=== PATIENT | male | born 1955 | race African-American/Black ===

== ENCOUNTER → 2017-02-28 | Outpatient (CLI) | payer BC ==
[~2017-02-28] MED LIST: IOHEXOL 350 MG/ML 100 ML (OMNIPAQUE 350) VIAL IV ONE; NS 100 ML (IVPB) BAG IV ONE
--- NOTE | 2017-02-28 09:55 | Diagnostic Imaging Report ---
PROCEDURE: CT chest with contrast only. TECHNIQUE: Multiple contiguous axial images were obtained through the chest after administration of intravenous contrast. INDICATION: Hemoptysis. COMPARISON: No prior studies are available for comparison. FINDINGS: Left chest wall cardiac pacemaker is in place. No axillary lymphadenopathy is seen. There is no hilar lymphadenopathy. A lymph node in the right paratracheal location is seen with short axis measurement of approximately 10 mm. No pericardial or pleural fluid is identified. The central airways are widely patent. Minimal subpleural interstitial changes are identified in the anterior portions of bilateral upper lobes. No parenchymal mass is identified. No infiltrate is seen. No nodules are detected. The upper abdomen is unremarkable. IMPRESSION: Essentially unremarkable CT of the chest with contrast. Dictated by: Dictated on workstation # [id number]
== END ==
LOC: RAD 08:55
PROVIDERS: ATTEND Nurse Practitioner Family
DX: R04.2 Hemoptysis (principal)
CPT/HCPCS: 71260

== ENCOUNTER 2018-12-16 20:06 | Inpatient (IN) | payer BC ==
[~2018-12-16] VITALS: Ht 177.8 cm; Wt 94.0 kg
[2018-12-16 20:44] LABS: BASOPHILS % (AUTO) 0 % (0-10); EOSINOPHILS % (AUTO) 1 % (0-10); HEMATOCRIT 49 % (40-54); HEMOGLOBIN 16.2 G/DL (13.3-17.7); LYMPHOCYTES # (AUTO) 0.9 X 10^3 (1.0-4.0); LYMPHOCYTES % (AUTO) 16 % (12-44); MEAN CORPUSCULAR HEMOGLOBIN 35 PG (25-34); MEAN CORPUSCULAR HGB CONC 33 G/DL (32-36); MEAN CORPUSCULAR VOLUME 103 FL (80-99); MEAN PLATELET VOLUME 10.1 FL (7.4-10.4); MONOCYTES # (AUTO) 0.8 X 10^3 (0.0-1.0); MONOCYTES % (AUTO) 14 % (0-12); NEUTROPHILS # (AUTO) 3.8 X 10^3 (1.8-7.8); NEUTROPHILS % (AUTO) 69 % (42-75); PLATELET COUNT 115 10^3/uL (130-400); RED CELL DISTRIBUTION WIDTH 13.5 % (10.0-14.5); WHITE BLOOD COUNT 5.5 10^3/uL (4.3-11.0)
--- NOTE | 2018-12-16 20:55 | ED Lower Extremity ---
General Chief Complaint: Skin/Wound Problems Stated Complaint: BILAT LEG SWELLING, CRACKED SKIN, LEAKING FLUID Source: patient, other Exam Limitations: no limitations History of Present Illness Date Seen by Provider: Dec 16, 2018 Time Seen by Provider: 20:30 Initial Comments Patient resents to ER by private conveyance with a friend and chief complaint that over the past couple days she's had increased swelling pain edema over his lower extremity's. He takes Lasix 80 mg daily and is under the care of Dr. Mcgee for heart failure with an AICD in place. He doesn't feel that the Lasix has helped at all his now having some red/honey colored crusts off bilateral knees, red hot tender skin and difficulty walking. He has a lot of breakdown in his skin from scratch patino all over his head face trunk and upper extremities. The small lesions usually approximately 1/2-1 cm in diameter started appearing September, 3 months ago after cutting a tree down. At first they thought maybe he had a skin infection and so he was put on triamcinolone topically and Keflex by his primary care doctor, Dr. Michaels out of [place], [place]. This did not help so he went to the client experience specialist to get a punch biopsy. He says he feels sometimes he has been quite wriggling under the skin and he'll scratch at it and that's what precipitates these lesions. He says he's even pulled these mites or bugs out of his skin and taking them to the doctor but they told him that there was no foreign organism there. He says he was also treated with permethrin twice. Today he presented to the ER doctor, Dr. Hurtado and was told that he needed to fo llow up outpatient for these lesions that they would not be able to find a reason for it. He says no blood work was done at this time. He's not having any chest pain shortness of breath or orthopnea. He denies a history of HIV, liver failure or hepatitis. He says the pain on movement can be as bad as an 8 or 9 out of 10 but he doesn't want anything for pain right now. He has pain over all the joints in his body's but especially his knees right now. Allergies and Home Medications Allergies Coded Allergies: No Allergy Information Available (Unverified , 02/28/17) Patient Home Medication List Home Medication List Reviewed: Yes Review of Systems Constitutional: No chills, No fever; malaise, weakness EENTM: No ear pain, No eye pain Respiratory: No cough, No phlegm, No short of breath Cardiovascular: No chest pain; edema, Hx of Intervention; No palpitations, No syncope Gastrointestinal: No abdominal pain, No constipation, No diarrhea Genitourinary: No discharge, No dysuria Musculoskeletal: No back pain, No joint pain Skin: No pruritus, No rash All Other Systems Reviewed Negative Unless Noted: Yes Past Csxtimj-Akesyg-Lbhblm Hx Patient Social History Alcohol Use: Denies Use Recreational Drug Use: No Smoking Status: Former Smoker Recent Foreign Travel: No Contact w/Someone Who Travel: No Physical Exam Vital Signs Vital Signs - First Documented 12/16/18 20:23 Temp 37.1 Pulse 65 Resp 18 B/P (MAP) 113/91 (98) Pulse Ox 95 O2 Delivery Room Air Capillary Refill : Height, Weight, BMI Height: '" Weight: lbs. oz. kg; BMI Method: General Appearance: WD/WN, mild distress HEENT: PERRL/EOMI, pharynx normal (mucosa is dry) Cardiovascular: normal peripheral pulses, regular rate, rhythm, no JVD Respiratory: lungs clear, normal breath sounds, no respiratory distress, no accessory muscle use Gastrointestinal: non tender, soft Hips: bilateral hip non-tender, bilateral hip normal inspection, bilateral hip normal range of motion Legs: bilateral leg pain, bilateral leg soft tissue tenderness, bilateral leg swelling (hot, red especially around the Bilaterally with some mild breakdown in the skin and some honey-colored serous crusting.) Feet: bilateral foot non-tender, bilateral foot swelling (2+ pitting edema up to the calves) Neurologic/Psychiatric: alert, normal mood/affect, oriented x 3 Skin: other (warm, tender, red, breakdown bilateral lower extremities around the knees and inferiorly) Progress/Results/Core Measures Results/Orders Lab Results Laboratory Tests Test 12/16/18 20:38 12/16/18 21:55 Range/Units White Blood Count 5.5 4.3-11.0 10^3/uL Red Blood Count 4.69 4.35-5.85 10^6/uL Hemoglobin 16.2 13.3-17.7 G/DL Hematocrit 49 40-54 % Mean Corpuscular Volume 103 H 80-99 FL Mean Corpuscular Hemoglobin 35 H 25-34 PG Mean Corpuscular Hemoglobin Concent 33 32-36 G/DL Red Cell Distribution Width 13.5 10.0-14.5 % Platelet Count 115 L 130-400 10^3/uL Mean Platelet Volume 10.1 7.4-10.4 FL Neutrophils (%) (Auto) 69 42-75 % Lymphocytes (%) (Auto) 16 12-44 % Monocytes (%) (Auto) 14 H 0-12 % Eosinophils (%) (Auto) 1 0-10 % Basophils (%) (Auto) 0 0-10 % Neutrophils # (Auto) 3.8 1.8-7.8 X 10^3 Lymphocytes # (Auto) 0.9 L 1.0-4.0 X 10^3 Monocytes # (Auto) 0.8 0.0-1.0 X 10^3 Eosinophils # (Auto) 0.0 0.0-0.3 10^3/uL Basophils # (Auto) 0.0 0.0-0.1 10^3/uL Erythrocyte Sedimentation Rate 10 0-30 MM/HR Prothrombin Time 14.3 12.2-14.7 SEC INR Comment 1.1 0.8-1.4 Activated Partial Thromboplast Time 29 24-35 SEC Sodium Level 139 135-145 MMOL/L Potassium Level 3.8 3.6-5.0 MMOL/L Chloride Level 99 98-107 MMOL/L Carbon Dioxide Level 25 21-32 MMOL/L Anion Gap 15 H 5-14 MMOL/L Blood Urea Nitrogen 18 7-18 MG/DL Creatinine 1.50 H 0.60-1.30 MG/DL Estimat Glomerular Filtration Rate 58 BUN/Creatinine Ratio 12 Glucose Level 119 H 70-105 MG/DL Calcium Level 9.1 8.5-10.1 MG/DL Corrected Calcium 9.3 8.5-10.1 MG/DL Magnesium Level 1.6 1.6-2.4 MG/DL Total Bilirubin 0.5 0.1-1.0 MG/DL Aspartate Amino Transf (AST/SGOT) 32 5-34 U/L Alanine Aminotransferase (ALT/SGPT) 22 0-55 U/L Alkaline Phosphatase 66 40-136 U/L Myoglobin 87.2 10.0-92.0 NG/ML Troponin I 0.071 H <0.028 NG/ML C-Reactive Protein High Sensitivity 3.31 H 0.00-0.50 MG/DL B-Type Natriuretic Peptide 954.3 H <100.0 PG/ML Total Protein 7.6 6.4-8.2 GM/DL Albumin 3.7 3.2-4.5 GM/DL Urine Color YELLOW Urine Clarity CLEAR Urine pH 6.0 5-9 Urine Specific [place] 1.025 H 1.016-1.022 Urine Protein 1+ H NEGATIVE Urine Glucose (UA) NEGATIVE NEGATIVE Urine Ketones NEGATIVE NEGATIVE Urine Nitrite NEGATIVE NEGATIVE Urine Bilirubin NEGATIVE NEGATIVE Urine Urobilinogen 2.0 < = 1.0 MG/DL Urine Leukocyte Esterase NEGATIVE NEGATIVE Urine RBC (Auto) NEGATIVE NEGATIVE Urine RBC NONE /HPF Urine WBC 0-2 /HPF Urine Crystals NONE /LPF Urine Bacteria NEGATIVE /HPF Urine Casts NONE /LPF Urine Mucus NEGATIVE /LPF Urine Culture Indicated NO My Orders Orders - CELSA OSEI Syphilis Antibody Screen (12/16/18 20:42) Hs C Reactive Protein (12/16/18 20:42) Erythrocyte Sedimentation Rate (12/16/18 20:42) Continuous Ekg Monitoring (12/16/18 20:42) Ekg Tracing (12/16/18 20:42) Ekg Tracing (12/16/18 21:48) Ed Iv/Invasive Line Start (12/16/18 22:00) Ns Iv 500 Ml (Sodium Chloride 0.9%) (12/16/18 22:00) Ua Culture If Indicated (12/16/18 22:05) Blood Culture (12/16/18 22:05) Ceftriaxone For Iv Use (Rocephin For I (12/16/18 22:15) Medications Given in ED Current Medications Medications Dose Ordered Sig/Ivan Route Start Time Stop Time Status Last Admin Dose Admin Sodium Chloride 500 ml @ 0 mls/hr Q0M ONCE IV 12/16/18 22:00 12/16/18 22:02 DC 12/16/18 22:23 500 MLS/HR Vital Signs/I&O 12/16/18 20:23 Temp 37.1 Pulse 65 Resp 18 B/P (MAP) 113/91 (98) Pulse Ox 95 O2 Delivery Room Air Progress Progress Note #1: Time: 20:55 Progress Note These excoriated-looking lesions could be from scleroderma, extra pulmonary sarcoidosis, syphilis, neurotic excoriation, delusional infestation, etc. this seems less likely that they are from arthropod since he has been treated with permethrin and neither of his family members who live with him have similar lesions. He does admit to having OCD type tendencies and preoccupied see with his lesions and itching at them to dig out the infestation. At the same time he acknowledges that he likely does not have an actual organism under his skin since no one else is suffering from this and none of the anti-parasite medicines helped. He is not demonstrating any evidence of pruritus or uncontrollable itching at this time. The crystals are crusts that he noticed on his legs and on examination are more likely related to infection than uremic campbell and lab will help differentiate this. Blood cultures will be obtained. Progress Note #2: Time: 21:51 Progress Note Elevated troponin does not rise to the level of a type II heart attacks yet but needs to be trended. He appears to be clinically dry so we are going to start off with a trial some fluids. I don't know what his baseline BNP is. Don't know if he's having an acute kidney injury but were going to treat him like he is Initial ECG Impression Date: Dec 16, 2018 Initial ECG Impression Time: 20:54 Initial ECG Rate: 89 Initial ECG Rhythm: Normal Sinus Initial ECG Intervals: Normal Initial ECG Impression: Normal, Nonspecific Changes Initial ECG Comparisson: No Previous ECG Available Comment There is about a half block to 1 block elevation in the ST segment in leads V1, V2 and V3. There is no reciprocal ST depression. Plan to repeat EKG after a little bit. Diagnostic Imaging Diagonstic Imaging: Xray Plain Films/CT/US/NM/MRI: chest (1v) Comments Generous cardiac silhouette. No mediastinal widening. Nonspecific pulmonary parenchyma. No evidence of interstitial disease. AICD appears to be in good position. No acute osseous abdomen mildly. NAME: LIUDMILA LUNDBERG [facility] REC#: [id number] PT STATUS: REG ER : 1955 PHYSICIAN: BIANKA DARDEN APRN ADMIT DATE: 12/16/18/ER Draft POSDate of Exam:12/16/18 CHEST 1 VIEW, AP/PA ONLY Patient History: Chest pain. CHF. Technique: Single frontal view of the chest. Comparison: CT chest on 03/06/2017. FINDINGS: A left pectoral dual-chamber ICD is in place. The lung volumes are normal. No focal consolidation is seen. No large pleural effusion or pneumothorax is seen. The cardiomediastinal silhouette is enlarged. No acute osseous abnormality is seen. IMPRESSION: Cardiomegaly. No overt pulmonary edema. Dictated on workstation # [id number] Dict: 12/16/182101 Trans: 12/16/182103 [facility] [id number] Interpreted by: LAURA SHAW DO Electronically signed by: Reviewed: Reviewed by Me Departure Communication (Admissions) Time/Spoke to Admitting Phy: 22:00 Discussed the case with Dr. Christopher and she agrees to observe the patient repeat labs troponin in the morning and Rocephin for antibiotics. Time/Spoke to Consulting Phy: 21:55 Discussed the patient's case lab imaging EKGs with Dr. Wayne and he feels that the EKG changes are probably exhibit display representative of an old infarct. He agrees with trending troponin and treating a cellulitis with fluids and antibiotics and he will consult on the patient. Impression Primary Impression: Cellulitis Qualified Codes: L03.119 - Cellulitis of unspecified part of limb Additional Impressions: History of CHF (congestive heart failure) Acute kidney injury (nontraumatic) Elevated troponin Dehydration Disposition: ADMITTED INPATIENT Condition: Stable Admissions Decision to Admit Reason: Admit from ER (General) Decision to Admit/Date: Dec 16, 2018 Time/Decision to Admit Time: 21:41 Departure-Patient Inst. Referrals: NO,LOCAL PHYSICIAN (PCP/Family) Primary Care Physician CELSA OSEI Dec 16, 2018 20:55 POS
[2018-12-16 21:01] LABS: INR 1.1 (0.8-1.4); PROTHROMBIN TIME PATIENT 14.3 SEC (12.2-14.7)
--- NOTE | 2018-12-16 21:04 | Diagnostic Imaging Report ---
Patient History: Chest pain. CHF. Technique: Single frontal view of the chest. Comparison: CT chest on 03/06/2017. FINDINGS: A left pectoral dual-chamber ICD is in place. The lung volumes are normal. No focal consolidation is seen. No large pleural effusion or pneumothorax is seen. The cardiomediastinal silhouette is enlarged. No acute osseous abnormality is seen. IMPRESSION: Cardiomegaly. No overt pulmonary edema. Dictated by: Dictated on workstation # [id number]
[2018-12-16 21:06] LABS: ALBUMIN 3.7 GM/DL (3.2-4.5); BILIRUBIN,TOTAL 0.5 MG/DL (0.1-1.0); CALCIUM 9.1 MG/DL (8.5-10.1); CREATININE SERUM 1.5 MG/DL (0.60-1.30); MAGNESIUM 1.6 MG/DL (1.6-2.4); POTASSIUM 3.8 MMOL/L (3.6-5.0); TOTAL PROTEIN 7.6 GM/DL (6.4-8.2)
[2018-12-16] MEDS ORDERED: NS IV 500 ML 500 ML IV ONE (22:00)
[2018-12-16 22:14] LABS: BILIRUBIN,URINE NEGATIVE (NEGATIVE); CLARITY,URINE CLEAR; COLOR,URINE YELLOW; GLUCOSE, URINE (UA) NEGATIVE (NEGATIVE); KETONES,URINE NEGATIVE (NEGATIVE); LEUKOCYTE ESTERASE ,URINE NEGATIVE (NEGATIVE); NITRITE,URINE NEGATIVE (NEGATIVE); PROTEIN,URINE 1+ (NEGATIVE)
[2018-12-16] MEDS ORDERED: cefTRIAXone FOR IV USE 1,000 MG in WATER (STERILE) FOR INJECTION 10 ML IV ONE (22:15)
[2018-12-16 22:25] LABS: BACTERIA,URINE NEGATIVE /HPF; WBC,URINE 0-2 /HPF
--- NOTE | 2018-12-16 22:59 | NUR ---
LIUDMILA LUNDBERG admitted to room 429-1, with an admitting diagnosis of CELLULITIS, DEHYDRATION, ELEVATED TROPONIN, WAYNE POSSIBLY, HX:CHF , on 12/16/18 from ED via CART, accompanied by STAFF AND FAMILY. LIUMDILA LUNDBERG introduced to surroundings, call light, bed controls, phone, TV, temperature control, lights, meal times, smoking policy, visitor policy, side rail policy, bathrooms and showers. Patient Rights given to patient in the handbook.LIUDMILA LUNDBERG verbalizes understanding that [facility] is not responsible for the loss or damage to any personal effects or valuables that are kept in the patients posession during their hospitalization.
[2018-12-16 23:00] VITALS: BP 121/80
[2018-12-16] MEDS ORDERED: ONDANSETRON 4 MG/2 ML (SDV) Z0FRAN IV PRN (23:30)
[2018-12-16] MEDS ORDERED: ACETAMINOPHEN 500 MG TAB (TYLENOL) PO PRN (23:30)
[2018-12-16] MEDS: LACTATED RINGERS 1,000 ML IV SCH (23:56)
[2018-12-17] VITALS (7 sets, daily range): BP systolic 100–121; BP diastolic 50–86
[2018-12-17] MEDS ORDERED: FURO40TA4 PO (00:03)
[2018-12-17] MEDS ORDERED: SPIR25TA PO (00:03)
[2018-12-17] MEDS ORDERED: SACU1TAB PO (00:03)
[2018-12-17] MEDS ORDERED: CEPH500T PO (00:03)
[2018-12-17] MEDS ORDERED: PANT40TA3 PO (00:03)
[2018-12-17] MEDS ORDERED: POTA99TA21 PO (00:03)
[2018-12-17] MEDS ORDERED: CALC-140 PO (00:18)
[2018-12-17] MEDS ORDERED: ASPI-586 PO (00:18)
[2018-12-17] MEDS: HYDROcodone/APAP 5 MG/325 MG (LORTAB) TAB PO PRN (01:09)
[2018-12-17 02:56] LABS: BASOPHILS % (AUTO) 0 % (0-10); EOSINOPHILS # (AUTO) 0.1 10^3/uL (0.0-0.3); EOSINOPHILS % (AUTO) 1 % (0-10); HEMATOCRIT 45 % (40-54); HEMOGLOBIN 14.9 G/DL (13.3-17.7); LYMPHOCYTES # (AUTO) 1.4 X 10^3 (1.0-4.0); LYMPHOCYTES % (AUTO) 26 % (12-44); MEAN CORPUSCULAR HEMOGLOBIN 34 PG (25-34); MEAN CORPUSCULAR HGB CONC 33 G/DL (32-36); MEAN CORPUSCULAR VOLUME 103 FL (80-99); MEAN PLATELET VOLUME 10.6 FL (7.4-10.4); MONOCYTES # (AUTO) 0.6 X 10^3 (0.0-1.0); MONOCYTES % (AUTO) 12 % (0-12); NEUTROPHILS # (AUTO) 3.1 X 10^3 (1.8-7.8); NEUTROPHILS % (AUTO) 60 % (42-75); PLATELET COUNT 102 10^3/uL (130-400); RED CELL DISTRIBUTION WIDTH 13.3 % (10.0-14.5); WHITE BLOOD COUNT 5.2 10^3/uL (4.3-11.0)
[2018-12-17 03:21] LABS: ALANINE AMINOTRANSFERASE 20 U/L (0-55); ALBUMIN 3.3 GM/DL (3.2-4.5); ALKALINE PHOSPHATASE 59 U/L (40-136); BILIRUBIN,TOTAL 0.5 MG/DL (0.1-1.0); BUN/CREATININE RATIO 14; CALCIUM 8.4 MG/DL (8.5-10.1); CARBON DIOXIDE 21 MMOL/L (21-32); CHLORIDE 101 MMOL/L (98-107); CHOLESTEROL 164 MG/DL (< 200); CREATININE SERUM 1.34 MG/DL (0.60-1.30); GFR ESTIMATED > 60; GLUCOSE 128 MG/DL (70-105); HDL CHOLESTEROL 50 MG/DL (40-60); POTASSIUM 4.1 MMOL/L (3.6-5.0); SODIUM 136 MMOL/L (135-145); TRIGLYCERIDES 122 MG/DL (<150); VLDL CHOLESTEROL 24 MG/DL (5-40)
--- NOTE | 2018-12-17 08:39 | Diagnostic Imaging Report ---
INDICATION: Elevated troponin. TECHNIQUE: Single view chest 8:32 AM. CORRELATION STUDY: 12/16/2018 FINDINGS: Single chamber left-sided ICD is in place. Heart size enlarged but stable. Vasculature overall unchanged. Lungs remain relatively clear. IMPRESSION: 1. Stable chest. Unchanged severity cardiac enlargement. Dictated by: Dictated on workstation # [id number]
[2018-12-17] MEDS: LACTATED RINGERS 1,000 ML IV SCH ×2 (08:56→20:53)
--- NOTE | 2018-12-17 12:20 | History & Physical-Hospitalist ---
History of Present Illness Source: patient Date Seen 12/17/18 Time Seen by a Provider: 12:13 Attending Physician Barbra Christopher MD PCP No,Local Physician Referring Physician Date of Admission Dec 16, 2018 at 22:08 Home Medications & Allergies Home Medications Reviewed patient Home Medication Reconciliation performed by pharmacy medication reconciliations isotope technician and/or nursing. Patients Allergies have been reviewed. Allergies Allergies Coded Allergies No Allergy Information Available (Unverified02/28/17) Past Jzbvbcw-Xelzwv-Wjvgld Hx Past Med/Social Hx: Reviewed Nursing Past Med/Soc Hx Patient Social History Employed/Student: employed Alcohol Use: Denies Use Recreational Drug Use: No Smoking Status: Former Smoker Former Smoker, Quit: Dec 08, 2009 2nd Hand Smoke Exposure: Yes Recent Foreign Travel: No Contact w/other who traveled: No Recent Hopitalizations: No Recent Infectious Disease Expo: No Past Medical History Cardiac: Cardiomyopathy, Chronic Edema/Swelling, Hypertension Skin/Integumentary: Recent Skin Changes History of Blood Disorders: No Adverse Reaction to Blood [place]: No Family History Reviewed Nursing Family Hx Patient reports no known family medical history. Review of Systems Constitutional: No chills, No fever, No weakness EENTM: no symptoms reported Respiratory: no symptoms reported Cardiovascular: see HPI, edema Gastrointestinal: no symptoms reported Genitourinary: no symptoms reported Musculoskeletal: no symptoms reported Skin: see HPI, dryness, lesions, pruritus, rash Psychiatric/Neurological: No Symptoms Reported Physical Exam Physical Exam Vital Signs Vital Signs - First Documented 12/16/18 20:23 Temp 37.1 Pulse 65 Resp 18 B/P (MAP) 113/91 (98) Pulse Ox 95 O2 Delivery Room Air Capillary Refill : Less Than 3 Seconds Height, Weight, BMI Height: '" Weight: lbs. oz. kg; 29.73 BMI Method: General Appearance: No Apparent Distress, WD/WN HEENT: Moist Mucous Membranes; No Scleral Icterus (L), No Scleral Icterus (R) Neck: Supple; No Thyromegaly Respiratory: Lungs Clear, No Respiratory Distress Cardiovascular: Regular Rate, Rhythm, No Murmur Gastrointestinal: Normal Bowel Sounds, Non Tender, Soft Extremity: No Calf Tenderness, Pedal Edema, Swelling Neurologic/Psychiatric: Alert, Oriented x3, Normal Mood/Affect Skin: Rash (diffuse numular lesions with excoriations evident on chest arms and face), Other (bilateral lower extremity with erythema and warmth, absent hair; absent eyebrows) Results Results/Procedures Labs Laboratory Tests 12/16/18 20:38 12/17/18 02:47 Patient resulted labs reviewed. Imaging: Reviewed Imaging Report Assessment/Plan Admission Diagnosis Cellulitis, WAYNE Admission Status: Inpatient Order (span 2 midnights) Reason for Inpatient Admission: failed outpatient management, WAYNE Assessment and Plan Cellulitis Continue on Rocephin, will add Vanc Cultures pending Consider wound vac consult for edema management CHF elevated troponin BNP elevated but has been doubling up on lasix at home and now has WAYNE Edema likely due to cellulitis Echo ordered, unsure of EF but likely very abnormal due to med history Cardiology consulted records requested Diffuse rash Has seen Dr Armstrong multiple times- will request records MADELINE, RF, Tick panel, and TSH ordered Benadryl for itching Has tried permethrin multiple times without improvement Diagnosis/Problems Diagnosis/Problems (1) Cellulitis Status: Acute Qualifiers: Site of cellulitis: extremity Site of cellulitis of extremity: lower extremity Laterality: unspecified laterality Qualified Codes: L03.119 - Cellulitis of unspecified part of limb (2) Elevated troponin Status: Acute (3) Acute kidney injury (nontraumatic) Status: Acute (4) History of CHF (congestive heart failure) Status: Acute Clinical Quality Measures DVT/VTE Risk/Contraindication: Risk Factor Score Per Nursin RFS Level Per Nursing on Admit: 4+=Very High BARBRA CHRISTOPHER MD Dec 17, 2018 12:20 POS
[2018-12-17] MEDS ORDERED: VANCOMYCIN INJECTION 2,000 MG in NS IV 500 ML 500 ML IV NR (12:35)
[2018-12-17] MEDS: ENOXAPARIN 40 MG/0.4 ML (LOVENOX) SYR SC SCH (14:45)
[2018-12-17] MEDS: diphenhydrAMINE 25 MG TAB (BENADRYL) PO PRN ×2 (16:39→23:45)
--- NOTE | 2018-12-17 17:13 | Consultation-Cardiology ---
HPI-Cardiology Cardiology Consultation: Date of Consultation 12/17/18 Time Seen by a Provider: 16:10 Date of Admission Attending Physician Gricelda Christopher MD Admitting Physician No,Local Physician Consulting Physician RONNI OBREGON MD, MA, FACP, FACC, FSCAI, CCDS Primary electrolysist: Dr Beck HPI: Chief Complaint: CC: Leg swelling, redness, and pain HPI 63 yo man with increasing leg swelling and redness and discomfort for several days to weeks. Admitted to Dr Christopher with the diagnosis of cellulitis. Known to have multiple CV issues (see below) for which he follows with Dr Beck in [place]. He notes chronic exertional shortness of breath. He denies cp. He denies palp or syncope or shocks from ICD. He notes gen malaise. Poor stamina. Has had a skin eruption for several months for which he is seeing his marine underwriter Dr Castrejon Review of Systems-Cardiology Review of Systems Constitutional: As described under HPI Eyes: No vision change Ears/Nose/Throat: No ear discharge, No nasal drainage, No recent hearing loss Respiratory: As described under HPI Cardiovascular: As described under HPI Gastrointestinal: No diarrhea, No nausea, No vomiting Genitourinary: No dysuria, No hematuria, No urine frequency changes Musculoskeletal: As describe under HPI; No back pain Skin: As described under HPI Psychiatric/Neurological: No seizure, No focal weakness, No syncope Hematologic: No bleeding abnormalities All Other Systems Reviewed Negative Unless Noted: Yes [id number] Hx Patient Social History Employed/Student: employed Alcohol Use: Denies Use Recreational Drug Use: No Smoking Status: Former Smoker 2nd Hand Smoke Exposure: Yes Recent Foreign Travel: No Recent Infectious Disease Expo: No Hospitalization with Isolation: Denies Past Medical History PMH As described under Assessment. Family Medical History Family History: Patient reports no known family medical history. Allergies and Home Medications Allergies Coded Allergies: No Allergy Information Available (Unverified , 02/28/17) Home Medications Aspirin 81 Mg Tablet.dr, 81 MG PO DAILY, (Reported) Calcium Carbonate/Vitamin D3 1 Each Tablet, 1 EACH PO DAILY, (Reported) Cephalexin 500 Mg Tablet, 500 MG PO BID, (Reported) Furosemide 40 Mg Tablet, 40 MG PO BID, (Reported) Pantoprazole Sodium 40 Mg Tablet.dr, 40 MG PO DAILY, (Reported) Potassium Gluconate 99 Mg Tablet, 99 MG PO DAILY, (Reported) Sacubitril/Valsartan 1 Each Tablet, 1 TAB PO BID, (Reported) Spironolactone 25 Mg Tablet, 25 MG PO DAILY, (Reported) Patient Home Medication List Home Medication List Reviewed: Yes Physical Exam-Cardiology Physical Exam Vital Signs/I&O 12/17/18 12/17/18 12/17/18 12/17/18 07:00 08:00 08:00 12:00 Temp 36.3 36.5 Pulse 98 91 97 Resp 18 16 B/P (MAP) 120/86 (97) 104/66 (79) Pulse Ox 93 99 O2 Delivery Room Air Room Air Room Air 12/17/18 12/17/18 13:00 16:00 Temp 36.8 Pulse 98 90 Resp 20 B/P (MAP) 108/64 (79) Pulse Ox 94 O2 Delivery Room Air 12/17/18 00:00 Intake Total 10 ml Balance 10 ml Capillary Refill : Less Than 3 Seconds Constitutional: AAO x 3, well-developed, well-nourished HEENT: EOMI, hearing is well preserved; No xanthelasmas are seen Neck: carotid pulses are 2 + bilaterally, with good upstrokes Respiratory: No accessory muscle use; other (Fair bilat air entry, basal coarse and fine crackles) Cardiovascular: regular rate-rhythm, S1 and S2, systolic murmur (soft TEODORA at card base) Gastrointestinal: No tender; soft; No guarding, No rebound; audible bowel sounds Extremities: No clubbing, No cyanosis; significant edema (4 + pitting edema of the legs with overlying redness and increased temperature) Neurologic/Psychiatric: oriented x 3, other (moves all limbs equally) Skin: other (papular skin eruption involving the face, nape of the neck, torso and upper limbs) Data Review Labs Laboratory Tests 12/16/18 20:38: White Blood Count 5.5, Red Blood Count 4.69, Hemoglobin 16.2, Hematocrit 49, Mean Corpuscular Volume 103H, Mean Corpuscular Hemoglobin 35H, Mean Corpuscular Hemoglobin Concent 33, Red Cell Distribution Width 13.5, Platelet Count 115L, Mean Platelet Volume 10.1, Neutrophils (%) (Auto) 69, Lymphocytes (%) (Auto) 16, Monocytes (%) (Auto) 14H, Eosinophils (%) (Auto) 1, Basophils (%) (Auto) 0, Neutrophils # (Auto) 3.8, Lymphocytes # (Auto) 0.9L, Monocytes # (Auto) 0.8, Eosinophils # (Auto) 0.0, Basophils # (Auto) 0.0, Erythrocyte Sedimentation Rate 10, Prothrombin Time 14.3, INR Comment 1.1, Activated Partial Thromboplast Time 29, Sodium Level 139, Potassium Level 3.8, Chloride Level 99, Carbon Dioxide Level 25, Anion Gap 15H, Blood Urea Nitrogen 18, Creatinine 1.50H, Estimat Glomerular Filtration Rate 58, BUN/Creatinine Ratio 12, Glucose Level 119H, Calcium Level 9.1, Corrected Calcium 9.3, Magnesium Level 1.6, Total Bilirubin 0.5, Aspartate Amino Transf (AST/SGOT) 32, Alanine Aminotransferase (ALT/SGPT) 22, Alkaline Phosphatase 66, Myoglobin 87.2, Troponin I 0.071H, C-Reactive Protein High Sensitivity 3.31H, B-Type Natriuretic Peptide 954.3H, Total Protein 7.6, Albumin 3.7 12/16/18 21:55: Urine Color YELLOW, Urine Clarity CLEAR, Urine pH 6.0, Urine Specific Leonore 1.025H, Urine Protein 1+H, Urine Glucose (UA) NEGATIVE, Urine Ketones NEGATIVE, Urine Nitrite NEGATIVE, Urine Bilirubin NEGATIVE, Urine Urobilinogen 2.0, Urine Leukocyte Esterase NEGATIVE, Urine RBC (Auto) NEGATIVE, Urine RBC NONE, Urine WBC 0-2, Urine Crystals NONE, Urine Bacteria NEGATIVE, Urine Casts NONE, Urine Mucus NEGATIVE, Urine Culture Indicated NO 12/17/18 02:47: White Blood Count 5.2, Red Blood Count 4.35, Hemoglobin 14.9, Hematocrit 45, Mean Corpuscular Volume 103H, Mean Corpuscular Hemoglobin 34, Mean Corpuscular Hemoglobin Concent 33, Red Cell Distribution Width 13.3, Platelet Count 102L, Mean Platelet Volume 10.6H, Neutrophils (%) (Auto) 60, Lymphocytes (%) (Auto) 26, Monocytes (%) (Auto) 12, Eosinophils (%) (Auto) 1, Basophils (%) (Auto) 0, Neutrophils # (Auto) 3.1, Lymphocytes # (Auto) 1.4, Monocytes # (Auto) 0.6, Eosinophils # (Auto) 0.1, Basophils # (Auto) 0.0, Sodium Level 136, Potassium Level 4.1, Chloride Level 101, Carbon Dioxide Level 21, Anion Gap 14, Blood Urea Nitrogen 19H, Creatinine 1.34H, Estimat Glomerular Filtration Rate > 60, BUN/Creatinine Ratio 14, Glucose Level 128H, Calcium Level 8.4L, Corrected Calcium 9.0, Total Bilirubin 0.5, Aspartate Amino Transf (AST/SGOT) 29, Alanine Aminotransferase (ALT/SGPT) 20, Alkaline Phosphatase 59, Troponin I 0.061H, Total Protein 7.0, Albumin 3.3, Triglycerides Level 122, Cholesterol Level 164, LDL Cholesterol Direct 136H, VLDL Cholesterol 24, HDL Cholesterol 50, Thyroid Stimulating Hormone (TSH) 2.94 12/17/18 08:33: Troponin I 0.057H Laboratory Tests 12/16/18 20:38 12/17/18 02:47 A/P-Cardiology Assessment/Admission Diagnosis Bilat leg cellulitis, being managed by the Primary Care Service Dilated ischemic cardiomyopathy with ac on chronic systolic CHF CAD. Pt reports h/o cor stents by Dr Beck a few years ago (no details known to the patient) S/p ICD. Pt report dual chamber ICD placement that is followed by Dr Beck Mild troponin elevation: type 2 [place] due to CHF Echo of 12/17/18: LVEF 10-15%, mod enlargement of LV, severe enlargement of LA, impaired RV systolic function, severe MR & TR, pulm htn with RVSP 51 mmHg Papular eruption on skin of head and neck and torso and upper limbs of undetermined etiology Discussion and Recomendations * Complex management due to multiple comorbidities (see above) * Treat with carvedilol, Entresto, furosemide, spironolactone for CHF * Continue ASA because of h/o CAD * Advised f/u on cardiomyopathy and severe MR with his electrolysist Dr Beck * Monitor labs closely Clinical Quality Measures DVT/VTE Risk/Contraindication: Risk Factor Score Per Nursin RFS Level Per Nursing on Admit: 4+=Very High RONNI OBREGON MD [facility] Dec 17, 2018 17:13 POS
[2018-12-17] MEDS ORDERED: ASPIRIN 81 MG CHEW (CHILDREN'S ASA) PO ONE (17:30)
[2018-12-17] MEDS ORDERED: SPIRONOLACTONE 25 MG (ALDACTONE) TAB PO ONE (17:30)
[2018-12-17] MEDS ORDERED: FUROSEMIDE 40 MG/4 ML INJ (LASIX) IVP ONE (17:30)
[2018-12-17] MEDS ORDERED: FUROSEMIDE 40 MG/4 ML INJ (LASIX) ONE (19:31)
--- NOTE | 2018-12-17 19:50 | NUR ---
NEW ORDER FOR HOME MEDICATIONS RECEIVED, THIS RN ATTEMPTED TO GIVE MEDICATIONS TO PATIENT. PATIENT STATED THAT HE ALREADY TOOK HIS HOME MEDS AND VERIFIED DOSAGES. PATIENT STATED "I DID NOT TAKE THE LASIX BECAUSE THE HEART DOCTOR SAID I WOULD GET THAT ONE THROUGH MY IV." THIS RN EXPLAINED THAT WE ARE ABLE TO GIVEN HOME MEDICATIONS WITH AN ORDER, BUT THEY HAVE TO BE VERIFIED THROUGH PHARMACY, THIS PROCESS WAS EXPLAINED AND AGREED. MEDICATIONS WERE UNABLE TO BE FOUND AT THIS TIME AND HE STATED THAT HIS SIGNIFICANT OTHER MAY HAVE TAKEN THEM WITH HER. REPORTED TO NIGHT RN THAT HOME MEDICATIONS WERE TAKEN, MEDICATIONS WERE NON-ADMINISTERED ON EMAR. PATIENT NOW STATES UNDERSTANDING NOT TO TAKE HOME MEDICATIONS WITHOUT NURSING APPROVAL.
[2018-12-17] MEDS: cefTRIAXone 1,000 MG/SWFI 10 ML IV PUSH IV SCH ×2 (20:04)
[2018-12-17] MEDS: CARVEDILOL 3.125 MG (COREG) TABLET PO SCH (20:06)
[2018-12-17] MEDS: SACUBITRIL/VALSARTAN 24/26 MG (ENTRESTO) TABLET PO SCH (20:07)
[2018-12-18] MEDS: LACTATED RINGERS 1,000 ML IV SCH ×2 (00:36→21:14)
[2018-12-18] MEDS: VANCOMYCIN 1500 MG/NS 500 ML IVPB IV SCH ×4 (00:38→13:14)
[2018-12-18] MEDS: HYDROcodone/APAP 5 MG/325 MG (LORTAB) TAB PO PRN ×2 (02:36→21:21)
[2018-12-18 04:00] VITALS: BP 99/65
[2018-12-18 05:50] LABS: BASOPHILS % (AUTO) 0 % (0-10); EOSINOPHILS # (AUTO) 0.1 10^3/uL (0.0-0.3); EOSINOPHILS % (AUTO) 1 % (0-10); HEMATOCRIT 45 % (40-54); HEMOGLOBIN 14.7 G/DL (13.3-17.7); LYMPHOCYTES # (AUTO) 0.9 X 10^3 (1.0-4.0); LYMPHOCYTES % (AUTO) 18 % (12-44); MEAN CORPUSCULAR HEMOGLOBIN 34 PG (25-34); MEAN CORPUSCULAR HGB CONC 33 G/DL (32-36); MEAN CORPUSCULAR VOLUME 104 FL (80-99); MONOCYTES # (AUTO) 0.7 X 10^3 (0.0-1.0); MONOCYTES % (AUTO) 14 % (0-12); NEUTROPHILS # (AUTO) 3.5 X 10^3 (1.8-7.8); NEUTROPHILS % (AUTO) 67 % (42-75); PLATELET COUNT 112 10^3/uL (130-400); RED CELL DISTRIBUTION WIDTH 13.7 % (10.0-14.5); WHITE BLOOD COUNT 5.3 10^3/uL (4.3-11.0)
[2018-12-18 06:11] LABS: BUN/CREATININE RATIO 17; CALCIUM 8.6 MG/DL (8.5-10.1); CARBON DIOXIDE 23 MMOL/L (21-32); CHLORIDE 104 MMOL/L (98-107); CREATININE SERUM 1.26 MG/DL (0.60-1.30); GFR ESTIMATED > 60; GLUCOSE 117 MG/DL (70-105); MAGNESIUM 1.5 MG/DL (1.6-2.4); POTASSIUM 3.7 MMOL/L (3.6-5.0); SODIUM 139 MMOL/L (135-145)
[2018-12-18] MEDS: FUROSEMIDE 40 MG/4 ML INJ (LASIX) IVP SCH ×2 (06:28→14:52)
[2018-12-18 08:00] VITALS: BP 112/83
[2018-12-18] MEDS ORDERED: CEPH500C PO (08:16)
[2018-12-18] MEDS ORDERED: ASCO100099 PO (08:24)
[2018-12-18] MEDS ORDERED: TURM538C PO (08:24)
[2018-12-18] MEDS ORDERED: MV,M1TAB2 PO (08:24)
[2018-12-18] MEDS ORDERED: TR1C15 TD (08:24)
--- NOTE | 2018-12-18 08:34 | NUR ---
SPOKE WITH PT, WENT THRU THE EXT MED HIS, CALLED [facility] AND [facility] TO COMPLETE THE MED REC. PT WAS ABLE TO TELL ME HOW/WHEN HE TAKES HIS MEDICATIONS. 09-16-2018 PANTOPRAZOLE #30/30 DS (THIS IS ON THE EXT MED HIS BUT I ALSO CALLED BOTH HIS PHARMACIES TO CHECK AND SEE IF THERE WAS A FILL SINCE THIS DATE- THERE HAD NOT BEEN) 09-23-2018 SPIROLACTONE #30/30DS (THIS IS ON THE EXT MED HIS BUT I ALSO CALLED BOTH HIS PHARMACIES TO CHECK AND SEE IF THERE WAS A FILL SINCE THIS DATE- THERE HAD NOT BEEN) PERMETHRIN WAS LISTED ON THE EXT MED HISTORY, PT SAID HE IS DONE WITH THIS PRESCRIPTION. OTC MEDS: TURMERIC VIT C W/ CON HIPS MTV ASPIRIN POTASSIUM CALCIUM W/ VIT D
[2018-12-18] MEDS: CARVEDILOL 3.125 MG (COREG) TABLET PO SCH ×2 (08:40→21:15)
[2018-12-18] MEDS: MAGNESIUM 1 GM/100 ML IVPB 100 ML IV SCH ×3 (08:41→12:08)
[2018-12-18] MEDS: ASPIRIN 81 MG CHEW (CHILDREN'S ASA) PO SCH (08:41)
[2018-12-18] MEDS: SACUBITRIL/VALSARTAN 24/26 MG (ENTRESTO) TABLET PO SCH ×2 (08:41→21:16)
[2018-12-18] MEDS ORDERED: SPIRONOLACTONE 25 MG (ALDACTONE) TAB PO SCH (09:00)
[2018-12-18] MEDS ORDERED: PATIENT MAY USE OWN MEDS, ALL MC SCH (09:15)
--- NOTE | 2018-12-18 09:59 | Progress Note - Cardiology ---
Cardiology SOAP Progress Note Subjective: Sitting up in bed. Denies any c/o CP, dyspnea, palpitations. Objective: I&O/Vital Signs 12/18/18 12/18/18 12/18/18 12/18/18 07:00 08:00 08:00 12:00 Temp 36.4 36.2 Pulse 93 60 68 Resp 20 20 B/P (MAP) 112/83 (93) 95/61 (72) Pulse Ox 96 96 98 O2 Delivery Room Air Room Air Room Air 12/18/18 12/18/18 13:00 15:55 Temp 36.2 Pulse 84 89 Resp 16 B/P (MAP) 108/86 (93) Pulse Ox 97 O2 Delivery Room Air 12/18/18 00:00 Intake Total 1960 ml Output Total 950 ml Balance 1010 ml Constitutional: AAO x 3, well-developed, well-nourished Respiratory: No accessory muscle use; other (Fair bilat air entry, basal coarse and fine crackles) Cardiovascular: regular rate-rhythm, S1 and S2, systolic murmur (soft TEODORA at card base) Gastrointestional: No tender; soft; No guarding, No rebound; audible bowel sounds Extremities: No clubbing, No cyanosis; significant edema (4 + pitting edema of the legs with overlying redness and increased temperature) Neurologic/Psychiatric: oriented x 3, other (moves all limbs equally) Skin: other (papular skin eruption involving the face, nape of the neck, torso and upper limbs) Results/Procedures: Labs Laboratory Tests 12/18/18 05:20: White Blood Count 5.3, Red Blood Count 4.33L, Hemoglobin 14.7, Hematocrit 45, Mean Corpuscular Volume 104H, Mean Corpuscular Hemoglobin 34, Mean Corpuscular Hemoglobin Concent 33, Red Cell Distribution Width 13.7, Platelet Count 112L, Mean Platelet Volume 11.0H, Neutrophils (%) (Auto) 67, Lymphocytes (%) (Auto) 18, Monocytes (%) (Auto) 14H, Eosinophils (%) (Auto) 1, Basophils (%) (Auto) 0, Neutrophils # (Auto) 3.5, Lymphocytes # (Auto) 0.9L, Monocytes # (Auto) 0.7, Eosinophils # (Auto) 0.1, Basophils # (Auto) 0.0, Sodium Level 139, Potassium Level 3.7, Chloride Level 104, Carbon Dioxide Level 23, Anion Gap 12, Blood Urea Nitrogen 21H, Creatinine 1.26, Estimat Glomerular Filtration Rate > 60, BUN/Creatinine Ratio 17, Glucose Level 117H, Calcium Level 8.6, Magnesium Level 1.5L Microbiology 12/16/18 Blood Culture - Preliminary, Resulted No growth A/P: Assessment: Bilat leg cellulitis, being managed by the Primary Care Service Dilated ischemic cardiomyopathy with ac on chronic systolic CHF. CHF improving clinically CAD. Pt reports h/o cor stents by Dr Beck a few years ago (no details known to the patient) S/p ICD. Pt report dual chamber ICD placement that is followed by Dr Beck Mild troponin elevation: type 2 [place] due to CHF Echo of 12/17/18: LVEF 10-15%, mod enlargement of LV, severe enlargement of LA, impaired RV systolic function, severe MR & TR, pulm htn with RVSP 51 mmHg Papular eruption on skin of head and neck and torso and upper limbs of undetermined etiology, managed by the Primary Care team Plan: * Complex management due to multiple comorbidities (see above) * Continue to treat with carvedilol, Entresto, furosemide, spironolactone for CHF * Continue ASA because of h/o CAD * Advised f/u on cardiomyopathy and severe MR with his production material coordinator Dr Beck * Monitor labs closely * Replace Mag Physician Assessment Physician Assessment Shortness of breath somewhat better No cp or palp or syncope Leg swelling persistent Lungs: basal rales Cor: reg with 3/6 HSM Ext: 3-4+ bilat leg edema A&R * As documented in our note above that I updated (italics) and as noted below * Replenish Mg * Monitor labs * I educated him in the management of heart failure and in the rationale of his CHF regimen * I answered his CV-related questions TOÑA ENRIQUEZ Dec 18, 2018 09:59 RONNI SALAS MD [facility], 2018 17:48 POS
[2018-12-18 12:00] VITALS: BP 95/61
--- NOTE | 2018-12-18 12:00 | Progress Note - Hospitalist ---
[facility] 12/18/18 1200: Subjective HPI/CC On Admission Date Seen by Provider: Dec 18, 2018 Time Seen by Provider: 11:07 Subjective/Events-last exam Pt appears to be doing well currently and states that his edema in the legs has gotten better since being in the hospital He does report still having some pain in both legs, but the redness is better He states that he has been still having the rash that he has seen mites or spores coming out of that is causing it to spread He states that he has had a biopsy and tried two different creams to help He states he saw a derrick worker well service in [place] who did the biopsy He states that he has had some OCD where he likes everything on his body to be smooth He has some old scars on his upper back from spots that he has picked at previously Review of Systems General: Chills; No Night Sweats, No Fatigue HEENT: Head Aches; No Visual Changes, No Ear Pain, No Sinus Congestion, No Post Nasal Drip Pulmonary: No Dyspnea, No Cough Cardiovascular: Edema; No: Chest Pain, Palpitations Gastrointestinal: No: Nausea, Vomiting, Abdominal Pain, Diarrhea, Constipation Genitourinary: No Dysuria; Other (Trouble starting and stopping stream) Musculoskeletal: leg pain, foot pain; No: neck pain Neurological: No: Weakness, Numbness, Confusion Objective Exam Vital Signs Vital Signs Date Time Temp Pulse Resp B/P (MAP) Pulse Ox O2 Delivery O2 Flow Rate FiO2 12/18/18 08:00 36.4 60 20 112/83 (93) 96 Room Air Capillary Refill : Less Than 3 Seconds General Appearance: No Apparent Distress, WD/WN HEENT: PERRL/EOMI, Pharynx Normal Neck: Full Range of Motion, Normal Inspection, Supple Respiratory: Chest Non Tender, Lungs Clear, Normal Breath Sounds, No Accessory Muscle Use, No Respiratory Distress Cardiovascular: Regular Rate, Rhythm; No No Edema; No Murmur, Normal Peripheral Pulses Extremity: No Normal Inspection (Skin cracking redness around bilateral knee and ankle ), No Normal Range of Motion (Decreased ankle dorsiflexion); Non Tender, No Calf Tenderness, Pedal Edema Neurologic/Psychiatric: Alert, Oriented x3, No Motor/Sensory Deficits, Normal Mood/Affect Skin: Warm/Dry, Other (Skin lesions, scabs, scars bilateral UE, Upper Chest, Upper back ) Results/Procedures Lab Laboratory Tests 12/18/18 05:20 Patient resulted labs reviewed. Imaging: Reviewed Imaging Report Assessment/Plan Assessment and Plan Assess & Plan/Chief Complaint Assessment: CHF Cellulitis OCD Anxiety Rash, skin lesions Hypokalemia Hypomagnesium Plan: Consult cardiology Vancomycin and Ceftriaxone for cellulitis Replace potassium and magnesium IV fluids Continue home medications Behavioral health consult for undiagnosed OCD and Anxiety Find results of Biopsy Tick panel Autoimmune evaluation Clinical Quality Measures DVT/VTE Risk/Contraindication: Risk Factor Score Per Nursin RFS Level Per Nursing on Admit: 4+=Very High DIAMOND FERNÁNDEZ DO 12/18/182053: Subjective Subjective/Events-last exam Dr. Wayne consultation is appreciated Slightly elevated Troponin Rheumatological workup in place PT and OT will be ordered to get him out of bed today Lovenox maintained for DVT prophylaxis Will review home medication and restart as many as possible IV Vancomycin and Rocephin maintained for cellulitis of the lower extremities No BM yet Wound care consult will be initiated Review of Systems Pulmonary: Dyspnea Musculoskeletal: leg pain Objective Exam General Appearance: No Apparent Distress, WD/WN, Chronically ill Cardiovascular: Regular Rate, Rhythm Extremity: Pedal Edema Neurologic/Psychiatric: Alert, Oriented x3, No Motor/Sensory Deficits, Normal Mood/Affect Assessment/Plan Assessment and Plan Assess & Plan/Chief Complaint Dr Wayne appreciated PT/OT BM regimen Abx Wound care Diagnosis/Problems Diagnosis/Problems (1) Cellulitis Status: Acute Qualifiers: Qualified Codes: L03.119 - Cellulitis of unspecified part of limb (2) Elevated troponin Status: Acute (3) Acute kidney injury (nontraumatic) Status: Acute (4) History of CHF (congestive heart failure) Status: Acute Supervisory-Addendum Brief Verification & Attestation Participated in pt care: history, MDM, physical Personally performed: exam, history, MDM, supervision of care Care discussed with: Medical Student Procedures: n/a Results interpretation: Verified all documentation Verification and Attestation of Medical Student E/M Service A medical student performed and documented this service in my presence. I reviewed and verified all information documented by the medical student and made modifications to such information, when appropriate. I personally performed the physical exam and medical decision making. Diamond Fernández, Dec 18, 2018,20:52 CELESTINO SHANE Dec 18, 2018 12:00 DIAMOND MEREDITH DO Dec 18, 2018 20:54 POS
--- NOTE | 2018-12-18 12:02 | Physical Therapy Evaluation ---
PT Evaluation-General Medical Diagnosis Admission Date Dec 16, 2018 at 22:08 Medical Diagnosis: cellulitis Onset Date: Dec 16, 2018 Therapy Diagnosis Therapy Diagnosis: weakness Precautions Precautions/Isolations: Fall Prevention, Standard Precautions Referral Physician: Alexandrea Reason for Referral: Evaluation/Treatment Medical History Pertinent Medical History: HTN Current History ER secondary to increased swelling, pain, and edema in LEs Reviewed History: Yes Social History Home: Single Level Current Living Status: Spouse Entry Into Home: Stairs With Railing PT Steps Into Home: 5 Prior Prior Level of Function SCALE: Activities may be completed with or without assistive devices. 0-Elfnulzokb-ooayvwd completes the activity by him/herself with no assistance from a helper. 5-Set-up or Clean-up Assistance-helper sets up or cleans up; patient completes activity. [place] assists only prior to or following the activity. 4-Supervision or Touching Assistance-helper provides verbal cues and/or touching/steadying and/or contact guard assistance as patient completes activity. Assistance may be provided throughout the activity or intermittently. 3-Partial/Moderate Assistance-helper does LESS THAN HALF the effort. [place] lifts, holds or supports trunk or limbs, but provides less than half the effort. 2-Substantial/Maximal Assistance-helper does MORE THAN HALF the effort. [place] lifts or holds trunk or limbs and provides more than half the effort. 9-Ulsjeaidw-zeogmb does ALL the effort. Patient does none of the effort to complete the activity. Or, the assistance of 2 or more helpers is required for the patient to complete the activity. If activity was not attempted, code reason: 7-Patient Refused. 9-Not Applicable-not attempted and the patient did not perform the activity before the current illness, exacerbation or injury. 10-Not Attempted due to Environmental Limitations-(lack of equipment, weather restraints, etc.). 88-Not Attempted due to Medical Conditions or Safety Concerns. Bed Mobility: 6 Transfers (B,C,W/C): 6 Gait: 6 Stairs: 6 Indoor Mobility (Ambulation): Independent Stairs: Independent Prior Devices Use: None PT Evaluation-Current Subjective Patient agrees to PT. Patient reports prior level of independence and currently only limited by swelling and pain in LE during ambulation. No pain at onset of treatment but increased during ambulation. Pain Numeric Pain Scale: 3 Location: Right Location Body Site: Knee Pain Description: Ache Objective Patient Orientation: Person, Place, Time, Situation Problem Solving: Good Attachments: IV ROM/Strength ROM Lower Extremities WFL Strength Lower Extremities Grossly 4/5 Integumentary/Posture Integumentary See nursing notes Bowel Incontinence: No Bladder Incontinence: No Posture WFL Neuromuscular (Tone, Coordination, Reflexes) Grossly intact Sensory Vision: Functional Hearing: Functional Transfers Roll Left to Right (QC): 6 Sit to Lying (QC): 6 Lying to Sitting/Side of Bed(Q: 6 Sit to Stand (QC): 6 Gait Does the Patient Walk?: Yes Mode of Locomotion: Walk Anticipated Mode of Locomotion: Walk Distance: 3=420-64 ft Walk 10 feet (QC): 6 Walk 50 ft with 2 Turns(QC): 6 Walk 150 ft (QC): 6 Distance: 200' Gait Assistive Device: FWW Comments/Gait Description Normal pace and pattern ambulation; chose to use FWW for stability purposes today; R knee pain during ambulation Balance Sitting Static: Normal Sitting Dynamic: Normal Standing Static: Normal Standing Dynamic: Normal Assessment/Needs Patient completely independent in all bed mobility and transfers. Patient ambulated 200' with FWW without assistance with normal pace and pattern and only minimal pain. Patient and family informed patient can be up ad justino and walk in hallway frequently throughout the day without staff assistance. Patient does not require skilled physical therapy services at this time. Rehab Potential: Good PT Plan Treatment/Plan Treatment Plan: Discontinue PT Time/GCodes Time In: 1133 Time Out: 1150 Total Billed Treatment Time: 17 Total Billed Treatment 1 visit [facility] 17min RAMON VOGEL PT Dec 18, 2018 12:02 POS
[2018-12-18] MEDS: ENOXAPARIN 40 MG/0.4 ML (LOVENOX) SYR SC SCH (12:08)
[2018-12-18] MEDS ORDERED: LACTULOSE SYRUP 10GM/15ML (ENULOSE) 30ML UDC PO NR (13:15)
[2018-12-18] MEDS ORDERED: SENNA W/DOCUSATE (SENOKOT S) TABLET PO NR (13:15)
--- NOTE | 2018-12-18 14:37 | Occupational Therapy Eval ---
OT Evaluation-General/PLF Medical Diagnosis Admission Date Dec 16, 2018 at 22:08 Medical Diagnosis: cellulitis Onset Date: Dec 16, 2018 Therapy Diagnosis Therapy Diagnosis: Decreased ADL function Precautions Precautions/Isolations: Fall Prevention, Standard Precautions Safety Interventions: None Referral Physician: Alexandrea Referral Reason: Activity Tolerance, Self Care, Evaluation/Treatment, Strengthening/ROM Medical History Pertinent Medical History: HTN Additional Medical History cardiomyopathy, chronic edema, HTN, CHF, CAD, ICD placement Current History Cellulitis, pt states that BLE has been painful for ~2 weeks. Reviewed History: Yes Social History Home: Single Level Current Living Status: aunt and uncle- pt caregiving Entry Into Home: Stairs With Railing Steps Into Home: 5 Pt lives with aunt/ uncle to caregive for them- provides financial and maintenance support. Pt's relative do not require physical assist. ADL-Prior Level of Function SCALE: Activities may be completed with or without assistive devices. 0-[place]-pm[place]ncve completes the activity by him/herself with no assistance from a helper. 5-Set-up or Clean-up Assistance-helper sets up or cleans up; patient completes activity. [place] assists only prior to or following the activity. 4-Supervision or Touching Assistance-helper provides verbal cues and/or touching/steadying and/or contact guard assistance as patient completes activity. Assistance may be provided throughout the activity or intermittently. 3-Partial/Moderate Assistance-helper does LESS THAN HALF the effort. [place] lifts, holds or supports trunk or limbs, but provides less than half the effort. 2-Substantial/Maximal Assistance-helper does MORE THAN HALF the effort. [place] lifts or holds trunk or limbs and provides more than half the effort. 7-Ewfzgvybh-migjza does ALL the effort. Patient does none of the effort to complete the activity. Or, the assistance of 2 or more helpers is required for the patient to complete the activity. If activity was not attempted, code reason: 7-Patient Refused. 9-Not Applicable-not attempted and the patient did not perform the activity before the current illness, exacerbation or injury. 10-Not Attempted due to Environmental Limitations-(lack of equipment, weather restraints, etc.). 88-Not Attempted due to Medical Conditions or Safety Concerns. 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 Pt agreeable to OT tx session. Mental Status/Objective Patient Orientation: Person, Place, Situation, Normal For Age Attachments: IV Current Hearing Aids: No Dentures/Partials: No Hand Dominance: Right Upper Extremity ROM WFL BUE Upper Extremity Coordination WFL BUE Upper Extremity Sensation WFL BUE BLE- some paresthesias at times Upper Extremity Strength WFL BUE ADL-Treatment Eating (QC): 6 Upper Body Dressing (QC): 5 Lower Body Dressing (QC): 2 On/Off Footwear (QC): 2 Toilet Transfer (QC): 4 (per pt report) Other Treatments Lymphedema tx orders received, contraindicated with dx of cellulitis. Pt educated on edema management and prevention measures for returned cellulitis: see following. Pt seen in bed, BLE propped with pillows. BLE have shiny appearance on shins, pitting edema B ankles, dry skin top of L foot, B feet edematous. Pt's friend present through session. Pt repositioned towards [facility] with Max A x2 persons. Pt's friend states she placed MARIANNE wraps on pt previous day; pt and friend educated on the dangers of pushing fluid with dx of cellulitis and his dx of CHF; pt should utilize short stretch bandages when cellulitis not prevalent in order to decrease resting pressure and increase working pressure, whereas MARIANNE bandages have high resting pressure and low working pressure which does not enhance flow of fluids as safely and efficiently as short stretch. Pt and friend educated on safe ways to encourage edema flow. Pt educated on edema, use of the rapeutic exercise to increase edema flow, skin/ wound care, compression stockings and sock options when cellulitis treated, the lymphatic system to encourage understanding and adherence to recommendations. Pt and friend nod in understanding, all questions answered. Pt completes AROM of BUE WFL, denies need for bathroom or change of position into chair. Pt left in bed, all needs met, call light in reach. Education OT Patient Education: Correct positioning, Exercise program, Home exercise program, Modified ADL techniques, Purpose of tx/functional activities, Reviewed precautions, Safety issues, Use of adapted equipment Teaching Recipient: Patient Teaching Methods: Discussion Response to Teaching: Verbalize Understanding, Return Demonstration, Reinforcement Needed OT Short Term Goals Short Term Goals 1=Demonstrate adherence to instructed precautions during ADL tasks. 2=Patient will verbalize/demonstrate understanding of assistive devices/modifications for ADL. 3=Patient will improve strength/tolerance for activity to enable patient to perform ADL's. OT Accountant Controller Goals [facility] Goals Time Frame: Dec 25, 2018 Eating (QC): 6 Oral Hygiene (QC): 6 Shower/Bathe Self (QC): 6 Upper Body Dressing (QC): 6 Lower Body Dressing (QC): 6 On/Off Footwear (QC): 6 Toileting Hygiene (QC): 6 Toilet/Commode Transfer (QC): 6 Additional Goals: 1-Demonstrate ADL Tasks, 2-Verbalize Understanding, 3-ImproveStrength/New 1=Demonstrate adherence to instructed precautions during ADL tasks. 2=Patient will verbalize/demonstrate understanding of assistive devices/modifications for ADL. 3=Patient will improve strength/tolerance for activity to enable patient to perform ADL's. OT Education/Plan Problem List/Assessment Assessment: Dependent Transfers, Edema, Impaired Funct Balance, Impaired I ADL's, Impaired Self-Care Skills Discharge Recommendations Plan/Recommendations: Continue POC Equpiment Recommendations-D/C: Hip Kit Treatment Plan/Plan of Care Treatment,Training & Education: Yes Patient would benefit from OT for education, treatment and training to promote independence in ADL's, mobility, safety and/or upper extremity function for ADL's. Plan of Care: ADL Retraining, Functional Mobility, Group Exercise/Act as Ind, UE Funct Exercise/Act (LE functional ex/ act for edema managment at home for decreased swelling and decreased chance of reoccurrance of dx) Estimated Hrs Per Day: .25 hour per day Rehab Potential: Good Time/GCodes Start Time: 13:41 Stop Time: 14:09 Total Time Billed (hr/min): 28 Billed Treatment Time 1, EVM (10), FA (18)= 28 SHREYA NAIDU OTR Dec 18, 2018 14:37 POS
[2018-12-18] MEDS ORDERED: PANTOPRAZOLE 40 MG (PROTONIX) TAB PO SCH (15:15)
[2018-12-18 15:55] VITALS: BP 108/86
[2018-12-18] MEDS: PANTOPRAZOLE 40 MG (PROTONIX) TAB PO SCH (16:18)
--- NOTE | 2018-12-18 17:44 | Wound Care Assessment ---
Wound Care Assessment Date Seen by Provider: Dec 18, 2018 Time Seen by Provider: 16:45 Chief Complaint Bilateral calf cellulitis. HPI The patient is a 63 year old male with cellulitis complicating severe lymphedema is a setting of CHF due to long-standing cardiomyopathy. He is followed by cardiology for exacerbation of CHF. HIs legs are very tender, precluding segmental pressures at this time. I have little to add; I have recommended the patient redouble his efforts to elevate his legs. Smoking Status: Former Smoker Recreational Drug Use: No Alcohol Use: Denies Use Exam Vital Signs Date Time Temp Pulse Resp B/P (MAP) Pulse Ox O2 Delivery O2 Flow Rate FiO2 12/18/18 15:55 36.2 89 16 108/86 (93) 97 Room Air Capillary Refill : Less Than 3 Seconds Results Laboratory Tests 12/18/18 05:20: White Blood Count 5.3, Red Blood Count 4.33L, Hemoglobin 14.7, Hematocrit 45, Mean Corpuscular Volume 104H, Mean Corpuscular Hemoglobin 34, Mean Corpuscular Hemoglobin Concent 33, Red Cell Distribution Width 13.7, Platelet Count 112L, Mean Platelet Volume 11.0H, Neutrophils (%) (Auto) 67, Lymphocytes (%) (Auto) 18, Monocytes (%) (Auto) 14H, Eosinophils (%) (Auto) 1, Basophils (%) (Auto) 0, Neutrophils # (Auto) 3.5, Lymphocytes # (Auto) 0.9L, Monocytes # (Auto) 0.7, Eosinophils # (Auto) 0.1, Basophils # (Auto) 0.0, Sodium Level 139, Potassium Level 3.7, Chloride Level 104, Carbon Dioxide Level 23, Anion Gap 12, Blood Urea Nitrogen 21H, Creatinine 1.26, Estimat Glomerular Filtration Rate > 60, BUN/Creatinine Ratio 17, Glucose Level 117H, Calcium Level 8.6, Magnesium Level 1.5L Microbiology 12/16/18 Blood Culture - Preliminary, Resulted No growth Microbiology 12/16/18 Blood Culture - Preliminary, Resulted No growth 12/16/18 Blood Culture - Preliminary, Resulted No growth IVELISSE CLINE MD Dec 18, 2018 17:44 POS
[2018-12-18 19:55] VITALS: BP 116/80
[2018-12-18] MEDS: LACTULOSE SYRUP 10GM/15ML (ENULOSE) 30ML UDC PO SCH (21:14)
[2018-12-18] MEDS: cefTRIAXone 1,000 MG/SWFI 10 ML IV PUSH IV SCH ×2 (21:15)
[2018-12-18] MEDS: SENNA W/DOCUSATE (SENOKOT S) TABLET PO SCH (21:15)
[2018-12-19] VITALS: BP 112/74
[2018-12-19] MEDS: VANCOMYCIN 1500 MG/NS 500 ML IVPB IV SCH ×2 (01:21)
[2018-12-19 04:00] VITALS: BP 102/68
[2018-12-19] MEDS: FUROSEMIDE 40 MG/4 ML INJ (LASIX) IVP SCH ×2 (06:23→15:37)
[2018-12-19] MEDS: PANTOPRAZOLE 40 MG (PROTONIX) TAB PO SCH (06:23)
[2018-12-19 08:00] VITALS: BP 107/74
[2018-12-19] MEDS: SENNA W/DOCUSATE (SENOKOT S) TABLET PO SCH ×2 (09:41→20:41)
[2018-12-19] MEDS: ASPIRIN 81 MG CHEW (CHILDREN'S ASA) PO SCH (09:41)
[2018-12-19] MEDS: CARVEDILOL 3.125 MG (COREG) TABLET PO SCH ×2 (09:41→20:41)
[2018-12-19] MEDS: SPIRONOLACTONE 25 MG (ALDACTONE) TAB PO SCH (09:42)
[2018-12-19] MEDS: SACUBITRIL/VALSARTAN 24/26 MG (ENTRESTO) TABLET PO SCH ×2 (09:44→20:41)
[2018-12-19] MEDS: diphenhydrAMINE 25 MG TAB (BENADRYL) PO PRN ×2 (09:46→20:41)
[2018-12-19] MEDS: LACTULOSE SYRUP 10GM/15ML (ENULOSE) 30ML UDC PO SCH ×2 (09:47→19:58)
[2018-12-19 10:29] LABS: BASOPHILS % (AUTO) 1 % (0-10); EOSINOPHILS # (AUTO) 0.1 10^3/uL (0.0-0.3); EOSINOPHILS % (AUTO) 2 % (0-10); HEMATOCRIT 46 % (40-54); HEMOGLOBIN 15.1 G/DL (13.3-17.7); LYMPHOCYTES # (AUTO) 1.3 X 10^3 (1.0-4.0); LYMPHOCYTES % (AUTO) 24 % (12-44); MEAN CORPUSCULAR HEMOGLOBIN 34 PG (25-34); MEAN CORPUSCULAR HGB CONC 33 G/DL (32-36); MEAN CORPUSCULAR VOLUME 102 FL (80-99); MEAN PLATELET VOLUME 10.5 FL (7.4-10.4); MONOCYTES # (AUTO) 0.8 X 10^3 (0.0-1.0); MONOCYTES % (AUTO) 14 % (0-12); NEUTROPHILS # (AUTO) 3.3 X 10^3 (1.8-7.8); NEUTROPHILS % (AUTO) 60 % (42-75); PLATELET COUNT 125 10^3/uL (130-400); RED CELL DISTRIBUTION WIDTH 13.5 % (10.0-14.5); WHITE BLOOD COUNT 5.5 10^3/uL (4.3-11.0)
--- NOTE | 2018-12-19 10:42 | Progress Note - Hospitalist ---
CELESTINO SHANE [facility] 12/19/18 1042: Subjective HPI/CC On Admission Date Seen by Provider: Dec 19, 2018 Time Seen by Provider: 07:07 Subjective/Events-last exam Pt reports still having pain in his feet when he walks He reports having some of the cracking of his skin on his right elbow He states that he thinks that his arms have decreased in size as well today He states that last night he was keeping his feet elevated a lot more and this has significantly decreased his leg swelling He reports that his arms are itchy still and that it is typically worse after a shower He was able to call the security sergeant about his biopsy that he states was negative for anything He did report feeling a little SOB immediately after they elevated his legs last night Review of Systems General: Chills HEENT: Head Aches; No Visual Changes, No Sore Throat Pulmonary: Dyspnea; No Cough Cardiovascular: No: Chest Pain, Palpitations Gastrointestinal: No: Nausea, Vomiting, Abdominal Pain, Diarrhea, Constipation Musculoskeletal: leg pain, foot pain; No: neck pain, back pain Neurological: No: Weakness, Numbness Objective Exam Vital Signs Vital Signs Date Time Temp Pulse Resp B/P (MAP) Pulse Ox O2 Delivery O2 Flow Rate FiO2 12/19/18 08:00 36.2 63 18 107/74 (85) 100 Room Air Capillary Refill : Less Than 3 Seconds General Appearance: No Apparent Distress, WD/WN Respiratory: Chest Non Tender, Lungs Clear, Normal Breath Sounds, No Accessory Muscle Use, No Respiratory Distress Cardiovascular: Regular Rate, Rhythm, No JVD, Normal Peripheral Pulses Extremity: Non Tender, No Calf Tenderness, Pedal Edema Neurologic/Psychiatric: Alert, Oriented x3, No Motor/Sensory Deficits, Normal Mood/Affect Skin: Normal Color, Warm/Dry, Rash (Bilateral upper extremity, upper back) Results/Procedures Lab Laboratory Tests 12/19/18 10:25 Patient resulted labs reviewed. Imaging: Reviewed Imaging Report Assessment/Plan Assessment and Plan Assess & Plan/Chief Complaint Assessment: CHF Cellulitis OCD Anxiety Rash, skin lesions Hypokalemia Hypomagnesium Plan: Consult cardiology Vancomycin and Ceftriaxone for cellulitis Replace potassium and magnesium IV fluids Continue home medications Behavioral health consult for undiagnosed OCD and Anxiety Tick panel Autoimmune evaluation Clinical Quality Measures DVT/VTE Risk/Contraindication: Risk Factor Score Per Nursin RFS Level Per Nursing on Admit: 4+=Very High DIAMOND FERNÁNDEZ DO 12/19/18 2015: Subjective Subjective/Events-last exam Pt doing pretty well. Wants to know what the plan is so I updated him on keeping the legs elevated, maintaining the IV antibiotics and transitioning to oral antibiotics and ultimately discharge may be tomorrow or . Reports no pain. Bowels are moving. PT and OT assessed him to not be in need of their services since he is doing very well and walking independently. Appreciate Dr. Sinha consultation. Overall feels like he is progressing but his rash showed no evidence of a diagnosis from Dr. Castrejon office so he is not pleased about that but it seems like it is somehow intermixed with the fact that he has admittedly a diagnosis of OCD. Getting STAT labs to check renal function. Appreciate cardiology management. Review of Systems General: Fatigue Cardiovascular: Edema Objective Exam General Appearance: No Apparent Distress, WD/WN, Chronically ill Respiratory: Lungs Clear Cardiovascular: Regular Rate, Rhythm Extremity: Pedal Edema Assessment/Plan Assessment and Plan Assess & Plan/Chief Complaint Change to PO abx tomorrow DC planning soon Diagnosis/Problems Diagnosis/Problems (1) Cellulitis Status: Acute Qualifiers: Qualified Codes: L03.119 - Cellulitis of unspecified part of limb (2) Elevated troponin Status: Acute (3) Acute kidney injury (nontraumatic) Status: Acute (4) History of CHF (congestive heart failure) Status: Acute Supervisory-Addendum Brief Verification & Attestation Participated in pt care: history, MDM, physical Personally performed: exam, history, MDM, supervision of care Care discussed with: Medical Student Procedures: n/a Results interpretation: Verified all documentation Verification and Attestation of Medical Student E/M Service A medical student performed and documented this service in my presence. I reviewed and verified all information documented by the medical student and made modifications to such information, when appropriate. I personally performed the physical exam and medical decision making. Diamond Fernández, Dec 19, 2018,20:15 CELESTINO SHANE Dec 19, 2018 10:42 DIAMOND MEREDITH DO Dec 19, 2018 20:15 POS
[2018-12-19 10:45] LABS: ALANINE AMINOTRANSFERASE 19 U/L (0-55); ALBUMIN 3.2 GM/DL (3.2-4.5); ALKALINE PHOSPHATASE 65 U/L (40-136); BILIRUBIN,TOTAL 0.6 MG/DL (0.1-1.0); BUN/CREATININE RATIO 17; CALCIUM 8.8 MG/DL (8.5-10.1); CARBON DIOXIDE 25 MMOL/L (21-32); CHLORIDE 100 MMOL/L (98-107); CREATININE SERUM 1.15 MG/DL (0.60-1.30); GFR ESTIMATED > 60; GLUCOSE 112 MG/DL (70-105); POTASSIUM 4.3 MMOL/L (3.6-5.0); SODIUM 132 MMOL/L (135-145)
--- NOTE | 2018-12-19 11:38 | Occupational Ther Daily Note ---
OT Current Status-Daily Note Subjective Pt alert, lying in bed. Pt agrees to therapy. No c/o pain. Mental Status/Objective Patient Orientation: Person, Place, Time, Situation ADL-Treatment Discussed with pt about lower body dressing equipment. Pt demonstrated understanding of how to use sock aid and sock liner to don/doff socks. Pt was verbally given information on where to purchase items if wanted. Pt stated that he would probably not get the equipment but is glad to know that the equipment is out there. After therapy, physician in room. Call light/phone in reach. All needs met in room. Therapy Code Descriptions/Definitions Functional [place] Measure: 0=Not Assessed/NA 4=Minimal Assistance 1=Total Assistance 5=Supervision or Setup 2=Maximal Assistance 6=Modified [place] 3=Moderate Assistance 7=Complete IndependenceSCALE: Activities may be completed with or without assistive devices. 6-Osuemixkvu-vzwxvpu completes the activity by him/herself with no assistance from a helper. 5-Set-up or Clean-up Assistance-helper sets up or cleans up; patient completes activity. [place] assists only prior to or following the activity. 4-Supervision or Touching Assistance-helper provides verbal cues and/or touching/steadying and/or contact guard assistance as patient completes activity. Assistance may be provided throughout the activity or intermittently. 3-Partial/Moderate Assistance-helper does LESS THAN HALF the effort. [place] lifts, holds or supports trunk or limbs, but provides less than half the effort. 2-Substantial/Maximal Assistance-helper does MORE THAN HALF the effort. [place] lifts or holds trunk or limbs and provides more than half the effort. 2-Xidautmty-jdoaaw does ALL the effort. Patient does none of the effort to complete the activity. Or, the assistance of 2 or more helpers is required for the patient to complete the activity. If activity was not attempted, code reason: 7-Patient Refused. 9-Not Applicable-not attempted and the patient did not perform the activity before the current illness, exacerbation or injury. 10-Not Attempted due to Environmental Limitations-(lack of equipment, weather restraints, etc.). 88-Not Attempted due to Medical Conditions or Safety Concerns. OT Short Term Goals Short Term Goals 1=Demonstrate adherence to instructed precautions during ADL tasks. 2=Patient will verbalize/demonstrate understanding of assistive devices/modifications for ADL. 3=Patient will improve strength/tolerance for activity to enable patient to perform ADL's. OT Choir Member Goals Choir Member Goals Time Frame: Dec 25, 2018 Eating (QC): 6 Oral Hygiene (QC): 6 Shower/Bathe Self (QC): 6 Upper Body Dressing (QC): 6 Lower Body Dressing (QC): 6 On/Off Footwear (QC): 6 Toileting Hygiene (QC): 6 Toilet/Commode Transfer (QC): 6 Additional Goals: 1-Demonstrate ADL Tasks, 2-Verbalize Understanding, 3- ImproveStrength/New 1=Demonstrate adherence to instructed precautions during ADL tasks. 2=Patient will verbalize/demonstrate understanding of assistive devices/modifications for ADL. 3=Patient will improve strength/tolerance for activity to enable patient to perform ADL's. OT Education/Plan Problem List/Assessment Assessment: Decreased Activ Tolerance, Impaired Self-Care Skills Discharge Recommendations Plan/Recommendations: Continue POC Treatment Plan/Plan of Care Patient would benefit from OT for education, treatment and training to promote independence in ADL's, mobility, safety and/or upper extremity function for ADL's. Plan of Care: ADL Retraining, Functional Mobility, Group Exercise/Act as Ind, UE Funct Exercise/Act (LE functional ex/ act for edema managment at home for decreased swelling and decreased chance of reoccurrance of dx) Estimated Hrs Per Day: .25 hour per day Rehab Potential: Good Time/GCodes Start Time: 10:37 Stop Time: 10:47 Total Time Billed (hr/min): 10 Billed Treatment Time 1 visit-ADL 1 (10 min) ENMANUEL ALAMO Dec 19, 2018 11:38 POS
[2018-12-19 12:00] VITALS: BP 110/78
[2018-12-19] MEDS ORDERED: TROUGH ORDER-PHARMACY XX NR (12:00)
--- NOTE | 2018-12-19 12:07 | Progress Note - Cardiology ---
Cardiology SOAP Progress Note Subjective: Shortness of breath and leg swelling somewhat better No cp or palp or syncope Objective: I&O/Vital Signs 12/19/18 12/19/18 12/19/18 12/19/18 01:00 04:00 06:55 08:00 Temp 36.2 36.2 Pulse 96 66 95 63 Resp 16 18 B/P (MAP) 102/68 (79) 107/74 (85) Pulse Ox 97 100 O2 Delivery Room Air Room Air 12/19/18 08:00 O2 Delivery Room Air 12/19/18 00:00 Intake Total 1350 ml Output Total 775 ml Balance 575 ml Constitutional: AAO x 3, well-developed, well-nourished Respiratory: No accessory muscle use; other (Fair bilat air entry, basal coarse and fine crackles) Cardiovascular: regular rate-rhythm, S1 and S2, systolic murmur (soft TEODORA at card base) Gastrointestional: No tender; soft; No guarding, No rebound; audible bowel sounds Extremities: No clubbing, No cyanosis; significant edema (4 + pitting edema of the legs with overlying redness and increased temperature) Neurologic/Psychiatric: oriented x 3, other (moves all limbs equally) Skin: other (papular skin eruption involving the face, nape of the neck, torso and upper limbs) Results/Procedures: Labs Laboratory Tests 12/19/18 10:25: White Blood Count 5.5, Red Blood Count 4.48, Hemoglobin 15.1, Hematocrit 46, Mean Corpuscular Volume 102H, Mean Corpuscular Hemoglobin 34, Mean Corpuscular Hemoglobin Concent 33, Red Cell Distribution Width 13.5, Platelet Count 125L, Mean Platelet Volume 10.5H, Neutrophils (%) (Auto) 60, Lymphocytes (%) (Auto) 24, Monocytes (%) (Auto) 14H, Eosinophils (%) (Auto) 2, Basophils (%) (Auto) 1, Neutrophils # (Auto) 3.3, Lymphocytes # (Auto) 1.3, Monocytes # (Auto) 0.8, Eosi nophils # (Auto) 0.1, Basophils # (Auto) 0.0, Sodium Level 132L, Potassium Level 4.3, Chloride Level 100, Carbon Dioxide Level 25, Anion Gap 7, Blood Urea Nitrogen 19H, Creatinine 1.15, Estimat Glomerular Filtration Rate > 60, BUN/Creatinine Ratio 17, Glucose Level 112H, Calcium Level 8.8, Corrected Calcium 9.4, Total Bilirubin 0.6, Aspartate Amino Transf (AST/SGOT) 29, Alanine Aminotransferase (ALT/SGPT) 19, Alkaline Phosphatase 65, Total Protein 7.0, Albumin 3.2 Microbiology 12/16/18 Blood Culture - Preliminary, Resulted No growth Laboratory Tests 12/18/18 05:20 12/19/18 10:25 A/P: Assessment: Bilat leg cellulitis, being managed by the Primary Care Service Dilated ischemic cardiomyopathy with ac on chronic systolic CHF. CHF improving clinically CAD. Pt reports h/o cor stents by Dr Beck a few years ago (no details known to the patient) S/p ICD. Pt report dual chamber ICD placement that is followed by Dr Beck Mild troponin elevation: type 2 [place] due to CHF Echo of 12/17/18: LVEF 10-15%, mod enlargement of LV, severe enlargement of LA, impaired RV systolic function, severe MR & TR, pulm htn with RVSP 51 mmHg Papular eruption on skin of head and neck and torso and upper limbs of un determined etiology, [facility] Service managing Plan: * Complex management due to multiple comorbidities (see above) * Continue to treat with carvedilol, Entresto, furosemide, spironolactone for CHF * Continue ASA because of h/o CAD * Advised f/u on cardiomyopathy and severe MR with his insurance verify rep [facility]NI Lang [facility] Dec 19, 2018 12:07 POS
--- NOTE | 2018-12-19 13:15 | NUR ---
VANCOMYCIN DOSING TROUGH LEVEL 26.9; HOLD DOSE AND RESTART VANC 1 GM Q12H AT 23:00
[2018-12-19] MEDS: ENOXAPARIN 40 MG/0.4 ML (LOVENOX) SYR SC SCH (15:37)
[2018-12-19 16:00] VITALS: BP 110/58
[2018-12-19 20:00] VITALS: BP 99/70
[2018-12-19] MEDS: cefTRIAXone 1,000 MG/SWFI 10 ML IV PUSH IV SCH ×2 (20:41)
[2018-12-19] MEDS: HYDROcodone/APAP 5 MG/325 MG (LORTAB) TAB PO PRN (20:45)
[2018-12-19] MEDS ORDERED: VANCOMYCIN INJECTION 1,000 MG in NS (IVPB) 250 ML IV SCH (23:00)
[2018-12-19] MEDS: LACTATED RINGERS 1,000 ML IV SCH (23:44)
[2018-12-20] VITALS: BP 107/77
[2018-12-20 04:00] VITALS: BP 93/72
[2018-12-20 05:22] LABS: BASOPHILS % (AUTO) 1 % (0-10); EOSINOPHILS # (AUTO) 0.2 10^3/uL (0.0-0.3); EOSINOPHILS % (AUTO) 4 % (0-10); HEMATOCRIT 46 % (40-54); HEMOGLOBIN 15.4 G/DL (13.3-17.7); LYMPHOCYTES # (AUTO) 1.4 X 10^3 (1.0-4.0); LYMPHOCYTES % (AUTO) 32 % (12-44); MEAN CORPUSCULAR HEMOGLOBIN 34 PG (25-34); MEAN CORPUSCULAR HGB CONC 34 G/DL (32-36); MEAN CORPUSCULAR VOLUME 102 FL (80-99); MONOCYTES # (AUTO) 0.6 X 10^3 (0.0-1.0); MONOCYTES % (AUTO) 13 % (0-12); NEUTROPHILS # (AUTO) 2.2 X 10^3 (1.8-7.8); NEUTROPHILS % (AUTO) 51 % (42-75); PLATELET COUNT 123 10^3/uL (130-400); RED CELL DISTRIBUTION WIDTH 13.2 % (10.0-14.5); WHITE BLOOD COUNT 4.3 10^3/uL (4.3-11.0)
[2018-12-20] MEDS: LACTATED RINGERS 1,000 ML IV SCH (05:37)
[2018-12-20] MEDS: PANTOPRAZOLE 40 MG (PROTONIX) TAB PO SCH (05:38)
[2018-12-20] MEDS: FUROSEMIDE 40 MG/4 ML INJ (LASIX) IVP SCH (05:38)
[2018-12-20 05:46] LABS: BUN/CREATININE RATIO 16; CALCIUM 9.1 MG/DL (8.5-10.1); CARBON DIOXIDE 23 MMOL/L (21-32); CHLORIDE 102 MMOL/L (98-107); CREATININE SERUM 1.25 MG/DL (0.60-1.30); GFR ESTIMATED > 60; GLUCOSE 110 MG/DL (70-105); MAGNESIUM 1.7 MG/DL (1.6-2.4); POTASSIUM 4.6 MMOL/L (3.6-5.0); SODIUM 137 MMOL/L (135-145)
[2018-12-20 08:00] VITALS: BP 145/77
--- NOTE | 2018-12-20 08:47 | NUR ---
Initial visit by Waterworks Operatorrohan Aaron: engaged in rapport building and introduced Spiritual Care Services. Pt is episcopalian. No concerns voiced at this time.
--- NOTE | 2018-12-20 09:15 | Progress Note - Hospitalist ---
CELESTINO SHANE [facility] 12/20/18 0915: Subjective HPI/CC On Admission Date Seen by Provider: Dec 20, 2018 Time Seen by Provider: 08:12 Subjective/Events-last exam Pt reports less swelling in his legs but an increase in the cracking and dryness of the skin around the knee especially He states that the ankles are still pretty red and has the increased cracking of the skin He states he is mainly concerned about the rash and the spots that he thinks is from some sort of parasite digging into his skin He does not want to leave the hospital without know what is going on with the skin lesions He does admit to picking at them frequently with the distribution being primarily in the reach of his hands When questioned about having blue coloring or pain in his fingers when cold he said yes that happens and he probably just has bad circulation He did admit to some difficulty swallowing foods, but states it was rice or shredded meat that he noticed it getting stuck part way down He has a history of GERD, but states that recently it has not been as bad and he did not take his medications When asked about joint pain he denied any at first, but did state that he does have stiffness in all of his joints that he has to workout sometimes He denied any pleuritic chest pain Review of Systems Pulmonary: No Dyspnea, No Cough Cardiovascular: No: Chest Pain, Palpitations Gastrointestinal: No: Nausea, Vomiting, Abdominal Pain Musculoskeletal: leg pain, foot pain Neurological: No: Weakness, Numbness Objective Exam Vital Signs Vital Signs Date Time Temp Pulse Resp B/P (MAP) Pulse Ox O2 Delivery O2 Flow Rate FiO2 12/20/18 08:00 36.1 87 22 145/77 (99) 93 Room Air Capillary Refill : Less Than 3 Seconds General Appearance: No Apparent Distress, WD/WN, Anxious HEENT: Pharynx Normal, Moist Mucous Membranes Respiratory: Chest Non Tender, Lungs Clear, Normal Breath Sounds, No Accessory Muscle Use, No Respiratory Distress Cardiovascular: Regular Rate, Rhythm, Normal Peripheral Pulses Extremity: No Calf Tenderness, Pedal Edema Neurologic/Psychiatric: Alert, Oriented x3, No Motor/Sensory Deficits, Normal Mood/Affect Skin: Warm/Dry, Erythema (Bilateral ankles), Rash (Skin lesion on upper chest and bilateral arms, ) Results/Procedures Lab Laboratory Tests 12/20/18 04:50 Patient resulted labs reviewed. Imaging: Reviewed Imaging Report Assessment/Plan Assessment and Plan Assess & Plan/Chief Complaint Assessment: CHF Cellulitis OCD Anxiety Rash, skin lesions Hypokalemia Hypomagnesium Positive MADELINE Plan: Consult cardiology Vancomycin and Ceftriaxone for cellulitis Replace potassium and magnesium IV fluids Continue home medications Behavioral health consult for undiagnosed OCD and Anxiety Autoimmune evaluation (Systemic Sclerosis, SLE, MCTD, Sjgren) Rheumatology Consultation Clinical Quality Measures DVT/VTE Risk/Contraindication: Risk Factor Score Per Nursin RFS Level Per Nursing on Admit: 4+=Very High DIAMOND FERNÁNDEZ DO 12/20/18 1137: Subjective Subjective/Events-last exam See DC note Review of Systems Musculoskeletal: leg pain, foot pain Objective Exam General Appearance: No Apparent Distress, WD/WN, Chronically ill Respiratory: Lungs Clear Cardiovascular: Regular Rate, Rhythm Neurologic/Psychiatric: Alert, Oriented x3, No Motor/Sensory Deficits, Normal Mood/Affect Assessment/Plan Assessment and Plan Assess & Plan/Chief Complaint DC home see note Diagnosis/Problems Diagnosis/Problems (1) Cellulitis Status: Acute Qualifiers: Qualified Codes: L03.119 - Cellulitis of unspecified part of limb (2) Dehydration Status: Acute (3) Elevated troponin Status: Acute (4) Acute kidney injury (nontraumatic) Status: Acute (5) History of CHF (congestive heart failure) Status: Acute Supervisory-Addendum Brief Verification & Attestation Participated in pt care: history, MDM, physical Personally performed: exam, history, MDM, supervision of care Care discussed with: Medical Student Procedures: n/a Results interpretation: Verified all documentation Verification and Attestation of Medical Student E/M Service A medical student performed and documented this service in my presence. I reviewed and verified all information documented by the medical student and made modifications to such information, when appropriate. I personally performed the physical exam and medical decision making. Diamond Fernández, Dec 20, 2018,11:36 CELESTINO SHANE Dec 20, 2018 09:15 DIAMOND MEREDITH DO Dec 20, 2018 11:37 POS
[2018-12-20] MEDS: ASPIRIN 81 MG CHEW (CHILDREN'S ASA) PO SCH (09:35)
[2018-12-20] MEDS: SPIRONOLACTONE 25 MG (ALDACTONE) TAB PO SCH (09:35)
[2018-12-20] MEDS: SACUBITRIL/VALSARTAN 24/26 MG (ENTRESTO) TABLET PO SCH (09:35)
[2018-12-20] MEDS: CARVEDILOL 3.125 MG (COREG) TABLET PO SCH (09:36)
[2018-12-20] MEDS: LACTULOSE SYRUP 10GM/15ML (ENULOSE) 30ML UDC PO SCH (09:36)
[2018-12-20] MEDS: SENNA W/DOCUSATE (SENOKOT S) TABLET PO SCH (09:36)
--- NOTE | 2018-12-20 09:59 | Occupational Ther Daily Note ---
OT Current Status-Daily Note Subjective Pt seen on EOB, nursing present. pt states he would like to go to bathroom and OT to come back soon after, OT educated pt on roles, pt agreeable for OT tx session. Pt states no current pain, expresses pain while socks are donned ~7/10. Mental Status/Objective Patient Orientation: Person, Place, Situation, Normal For Age Attachments: IV ADL-Treatment Therapy Code Descriptions/Definitions Functional Dickson Measure: 0=Not Assessed/NA 4=Minimal Assistance 1=Total Assistance 5=Supervision or Setup 2=Maximal Assistance 6=Modified Dickson 3=Moderate Assistance 7=Complete IndependenceSCALE: Activities may be completed with or without assistive devices. 1-Dazeltagam-nbhlquo completes the activity by him/herself with no assistance from a helper. 5-Set-up or Clean-up Assistance-helper sets up or cleans up; patient completes activity. [place] assists only prior to or following the activity. 4-Supervision or Touching Assistance-helper provides verbal cues and/or touching/steadying and/or contact guard assistance as patient completes activity. Assistance may be provided throughout the activity or intermittently. 3-Partial/Moderate Assistance-helper does LESS THAN HALF the effort. [place] lifts, holds or supports trunk or limbs, but provides less than half the effort. 2-Substantial/Maximal Assistance-helper does MORE THAN HALF the effort. [place] lifts or holds trunk or limbs and provides more than half the effort. 5-Ikzngnfdj-fcqwre does ALL the effort. Patient does none of the effort to complete the activity. Or, the assistance of 2 or more helpers is required for the patient to complete the activity. If activity was not attempted, code reason: 7-Patient Refused. 9-Not Applicable-not attempted and the patient did not perform the activity before the current illness, exacerbation or injury. 10-Not Attempted due to Environmental Limitations-(lack of equipment, weather restraints, etc.). 88-Not Attempted due to Medical Conditions or Safety Concerns. Lower Body Dressing (QC): 6 Toileting Hygiene (QC): 6 Toilet Transfer (QC): 6 Other Treatment Pt's friend present through session. Pt states he would like to know more about his condition before going home- pt encouraged to talk to DO when available about cellulitis status. Pt sit to stand with IND, walks with FWW to bathroom with SUP, completes toileting with IND. Pt returns to chair. Pt completes sock doff/donning with IND. Pt's bed not returning to neutral position, pt states his nursing executive was able to fix it- nursing executive notified of position of bed and attempt to reposition. Pt completes seated HEP to encourage edema flow while at home. Pt completes 10 reps of 3 exercises, pt educated to work his way up to standing exercises and he can complete seated while working. pt completes with mod cues for positioning of limbs and speed of contractions. Pt and friend again educated on cellulitis, monitoring skin and temperature, the importance of skin care, and the use of short stretch rather than MARIANNE bandage wraps at home for edema management. Pt left in chair with friend present, call light within reach, all needs met, all questions answered. Education OT Patient Education: Disease process, Exercise program, Home exercise program, Modified ADL techniques, Purpose of tx/functional activities, Reviewed precautions, Safety issues Teaching Recipient: Patient, Friend Teaching Methods: Demonstration, Handout, Discussion Response to Teaching: Verbalize Understanding, Return Demonstration OT Short Term Goals Short Term Goals 1=Demonstrate adherence to instructed precautions during ADL tasks. 2=Patient will verbalize/demonstrate understanding of assistive devices/modifications for ADL. 3=Patient will improve strength/tolerance for activity to enable patient to perform ADL's. OT Academic Support Coordinator Goals Senior Living Goals Time Frame: Dec 25, 2018 Eating (QC): 6 Oral Hygiene (QC): 6 Shower/Bathe Self (QC): 6 Upper Body Dressing (QC): 6 Lower Body Dressing (QC): 6 (met) On/Off Footwear (QC): 6 (met) Toileting Hygiene (QC): 6 (met) Toilet/Commode Transfer (QC): 6 (met) Additional Goals: 1-Demonstrate ADL Tasks, 2-Verbalize Understanding, 3-ImproveStrength/New 1=Demonstrate adherence to instructed precautions during ADL tasks. 2=Patient will verbalize/demonstrate understanding of assistive devices/modifications for ADL. 3=Patient will improve strength/tolerance for activity to enable patient to perform ADL's. OT Education/Plan Problem List/Assessment Assessment: Impaired I ADL's, Impaired Self-Care Skills Discharge Recommendations Plan/Recommendations: Continue POC Treatment Plan/Plan of Care Treatment,Training & Education: Yes Patient would benefit from OT for education, treatment and training to promote independence in ADL's, mobility, safety and/or upper extremity function for ADL's. Plan of Care: ADL Retraining, Functional Mobility, Group Exercise/Act as Ind, UE Funct Exercise/Act (LE functional ex/ act for edema managment at home for decreased swelling and decreased chance of reoccurrance of dx) Treatment Duration: Dec 25, 2018 Frequency: 5 times per week Estimated Hrs Per Day: .25 hour per day Rehab Potential: Good Time/GCodes Start Time: 08:40 Stop Time: 09:03 Total Time Billed (hr/min): 23 Billed Treatment Time 1, ADL (8), EX (15)= (23) SHREYA NAIDU OTR Dec 20, 2018 09:59 POS
[2018-12-20] MEDS ORDERED: CARV3.122 PO (10:27)
[2018-12-20] MEDS ORDERED: ACHD5005 PO (10:27)
[2018-12-20] MEDS ORDERED: CEPH-507 PO (10:31)
--- NOTE | 2018-12-20 10:31 | Discharge Summary ---
Discharge Summary Hospital Course Was the Problem List Reviewed?: Yes Problems/Dx: (1) Cellulitis Status: Acute Qualifiers: Qualified Codes: L03.119 - Cellulitis of unspecified part of limb (2) Elevated troponin Status: Acute (3) Acute kidney injury (nontraumatic) Status: Acute (4) History of CHF (congestive heart failure) Status: Acute Hospital Course Date of Admission: Dec 16, 2018 at 22:08 Admission Diagnosis : Family Physician/Provider: No,Local Physician Date of Discharge: 12/20/18 Discharge Diagnosis: Cellulitis, chronic lower extremity edema/lymphedema, ischemic cardiomyopathy ejection fraction 10 percent, acute kidney injury, rash Hospital Course: Patient had a lengthy hospital course he was admitted placed on broad-spectrum IV antibiotics of vancomycin and Rocephin due to lower extremity cellulitis and edema and failed Keflex briefly for one day prior to admission. Acute renal failure resolved with gentle IV fluids in cardiology was consulted and checked echocardiogram which revealed ejection fraction of 10 percent. Labs returned back to normal patient was assessed placed on Lovenox for DVT prophylaxis and PT/OT were consulted but patient was back at baseline and was able to ambulate around and did not require other services. Rash was continued issue for the patient previously had a biopsy by dermatology here in [place] but no results indicated the source of the rash but supportive care provided rheumatological workup ensued and wound care evaluate the patient recommended elevation of the legs and close follow-up of his wound care clinic for lymphedema treatment. Patient was dissatisfied with every treatment modality offered and became disrespectful and rude even with nurse in the room with me at day of discharge so nursing inside sales supervisor was contacted and patient was given reassurance and supportive care and I did speak with primary care provider Leydi Michaels in depth and told her the entire workup in hospital course and she will see him in close follow-up. He told me that he would be changing primary care providers very soon as he has frequently in the past. Aggressive treatment was provided noted and a titer of 1:160 so he will need close follow-up for specialty referrals but from a cardiology and wound care standpoint and from internal medicine hospitalist standpoint he was deemed stable for discharge on Keflex 4 times a day with close follow-up with his primary care provider in addition to arranging dermatology appointment in [place]. Labs and Pending Lab Test: Laboratory Tests 12/19/18 12:26: Vancomycin Level Trough 26.9*H 12/20/18 04:50: White Blood Count 4.3, Red Blood Count 4.51, Hemoglobin 15.4, Hematocrit 46, Mean Corpuscular Volume 102H, Mean Corpuscular Hemoglobin 34, Mean Corpuscular Hemoglobin Concent 34, Red Cell Distribution Width 13.2, Platelet Count 123L, Mean Platelet Volume 11.0H, Neutrophils (%) (Auto) 51, Lymphocytes (%) (Auto) 32, Monocytes (%) (Auto) 13H, Eosinophils (%) (Auto) 4, Basophils (%) (Auto) 1, Neutrophils # (Auto) 2.2, Lymphocytes # (Auto) 1.4, Monocytes # (Auto) 0.6, Eosinophils # (Auto) 0.2, Basophils # (Auto) 0.0, Sodium Level 137, Potassium L evel 4.6, Chloride Level 102, Carbon Dioxide Level 23, Anion Gap 12, Blood Urea Nitrogen 20H, Creatinine 1.25, Estimat Glomerular Filtration Rate > 60, BUN/Creatinine Ratio 16, Glucose Level 110H, Calcium Level 9.1, Magnesium Level 1.7 Microbiology 12/16/18 Blood Culture - Preliminary, Resulted No growth Home Meds Active Keflex (Cephalexin) 500 Mg Capsule 500 Mg PO QID Hydrocodone/Acetaminophen 5/325mg Tablet (Acetaminophen/Hydrocodone Bitart) 1 Tab Tab 1 Tab PO Q6H PRN Carvedilol 3.125 Mg Tablet 3.125 Mg PO BID Reported One Daily For Men 50+ Adv Tab (Mv,Minerals/FA/Lycopene/Ginkgo) 1 Each Tablet 1 Each PO DAILY Vitamin C with Dominga Hips (Ascorbic Acid) 1,000 Mg Tablet 1,000 Mg PO HS Turmeric (Turmeric Root Extract) 538 Mg Capsule 538 Mg PO HS Triamcinolone Acetonide 0.1% Cream (Triamcinolone Acet) 15 Gm Cr 1 Applic TD BID APPLY CREAM EXTERNALLY TO AFFECTED AREA TWICE DAILY DIRECTED (NECK DOWN TO FEET) Cephalexin 500 Mg Capsule 500 Mg PO BID PICKED UP #20 (10 DAY SUPPLY) ON 12-13-2018 Calcium + Vitamin D Tablet (Calcium Carbonate/Vitamin D3) 1 Each Tablet 1 Each PO DAILY Aspir 81 (Aspirin) 81 Mg Tablet.dr 81 Mg PO DAILY Potassium (Potassium Gluconate) 99 Mg Tablet 99 Mg PO DAILY Furosemide 40 Mg Tablet 40 Mg PO BID Pantoprazole Sodium 40 Mg Tablet.dr 40 Mg PO DAILY LAST FILLED 09-16-2018 #30 Aldactone (Spironolactone) 25 Mg Tablet 25 Mg PO DAILY LAST FILLED 09-23-2018 #30 Entresto 24 mg-26 mg Tablet (Sacubitril/Valsartan) 1 Each Tablet 1 Tab PO BID Assessment/Pt Instructions Leydi Michaels on Tuesday Dermatology Dr. Bro as soon as possible Discharge Planning: <30 minutes discharge planning Discharge Instructions Discharge Diet: Cardiac Diet Activity as Tolerated: Yes Consultations Dr. Sinha wound care Dr. Wayne cardiology Discharge Physical Examination Vital Signs Vital Signs Date Time Temp Pulse Resp B/P (MAP) Pulse Ox O2 Delivery O2 Flow Rate FiO2 12/20/18 08:00 36.1 87 22 145/77 (99) 93 Room Air General Appearance: No Apparent Distress, WD/WN, Chronically ill Respiratory: Lungs Clear Cardiovascular: Regular Rate, Rhythm Extremity: Pedal Edema (much improved) Neurologic/Psychiatric: Alert, Oriented x3, No Motor/Sensory Deficits, Normal Mood/Affect Allergies: Coded Allergies: No Allergy Information Available (Unverified , 02/28/17) Discharge Summary Date of Admission Dec 16, 2018 at 22:08 Date of Discharge Discharge Date: Dec 20, 2018 Admission Diagnosis Cellulitis, WAYNE Discharge Diagnosis Change to PO abx tomorrow DC planning soon (1) Cellulitis Status: Acute Qualifiers: Qualified Codes: L03.119 - Cellulitis of unspecified part of limb (2) Elevated troponin Status: Acute (3) Acute kidney injury (nontraumatic) Status: Acute (4) History of CHF (congestive heart failure) Status: Acute Clinical Quality Measures DVT/VTE Risk/Contraindication: Risk Factor Score Per Nursin RFS Level Per Nursing on Admit: 4+=Very High KIKI FERNÁNDEZ DO Dec 20, 2018 10:31 POS
--- NOTE | 2018-12-20 11:57 | Cardiology Progress Note ---
Subjective Date Seen by Provider: Dec 20, 2018 Time Seen by Provider: 11:52 Subjective/Events-last exam Patient sitting up in bed, denies any chest pain or dyspnea. Review of Systems General: No Chills, No Night Sweats, No Fatigue, No Malaise, No Appetite, No Other HEENT: No Head Aches, No Visual Changes, No Eye Pain, No Ear Pain, No Dysphasia, No Sinus Congestion, No Post Nasal Drip, No Sore Throat, No Other Pulmonary: No Dyspnea, No Cough, No Pleuritic Chest Pain, No Other Cardiovascular: No: Chest Pain, Palpitations, Orthopnea, Paroxysmal Noc. Dyspnea, Edema, Lt Headedness, Other Objective-Cardiology Exam Last Set of Vital Signs Vital Signs Capillary Refill : Less Than 3 Seconds I&O Intake and Output 12/20/18 00:00 Intake Total 3035 ml Output Total 2595 ml Balance 440 ml Intake Oral 2520 ml IV Total 515 ml Output Urine Total 2595 ml General: Alert, Oriented X3, Cooperative HEENT: Atraumatic, PERRLA Neck: Supple, No JVD, No Thyromegaly Lungs: Clear to Auscultation, Normal Air Movement Heart: Regular Rate, Normal S1, Normal S2, No Murmurs Abdomen: Normal Bowel Sounds, Soft Extremities: No Clubbing, Normal Pulses, Other (trace edema LLE) Skin: Other (dry scaly lesion on head, torso and extremity.) Neuro: Normal Gait, Normal Speech, Cranial Nerves 3-12 NL Psych/Mental Status: Mental Status NL, Mood NL Results Lab Laboratory Tests 12/20/18 04:50 A/P-Cardiology Admission Diagnosis Cellulitis CAD CHF type II VT Assessment/Plan Bilateral leg cellulitis, on antibiotics, being managed by the Primary Care Service Dilated ischemic cardiomyopathy with ac on chronic systolic CHF. Echo of 12/17/18: LVEF 10-15%, mod enlargement of LV, severe enlargement of LA, impaired RV systolic function, severe MR & TR, pulm htn with RVSP 51 mmHgCHF improving clinically. Maintained on carvedilol, Entresto, furosemide, spironolactone. CAD. Pt reports h/o coronary stents by Dr Beck a few years ago (no details known to the patient) S/p ICD. Pt report dual chamber ICD placement that is followed by Dr Beck Mild troponin elevation: type 2 VT due to CHF Papular eruption on skin of head and neck and torso and upper limbs of undetermined etiology, [facility] Service managing [place] for discharge from cardiology standpoint. F/u with primary generalist, Dr. Beck, in 2 weeks. Patient was seen and evaluated with Yolanda, examination performed, management plan was discussed, agree with the current scribed note, I made few changes to the note using Italic font Patient is sitting in bed, comfortable, denied any chest pain, feeling better On examination lungs were clear to auscultation, heart is regular Patient will follow-up with his primary generalist, continue current medication and monitor blood pressure and lipids Clinical Quality Measures DVT/VTE Risk/Contraindication: Risk Factor Score Per Nursin RFS Level Per Nursing on Admit: 4+=Very High Supervisory-Addendum Brief Supervisory Addendum Participated in pt care: history, MDM, physical Personally performed: exam, history, MDM Care discussed with: YOLANDA ROMERO Dec 20, 2018 11:57 am ANAHY SAN MD Dec 20, 2018 1:10 pm POS
[2018-12-20 13:22] VITALS: BP 145/77
== END 2018-12-20 13:20 | disposition home or self-care (01) | DRG 602 ==
LOC: EDUNIT# 20:06 → ER 20:08 → ICU 22:08 → 4TH 22:35
PROVIDERS: ADMIT Family Medicine; ATTEND Family Medicine
DX: L03.115 Cellulitis of right lower limb (principal); L03.116 Cellulitis of left lower limb; I42.0 Dilated cardiomyopathy; I50.23 Acute on chronic systolic (congestive) heart failure; I21.A1 Myocardial infarction type 2; N17.9 Acute kidney failure, unspecified; I25.5 Ischemic cardiomyopathy; I25.10 Atherosclerotic heart disease of native coronary artery without angina pectoris; I08.1 Rheumatic disorders of both mitral and tricuspid valves; I27.20 Pulmonary hypertension, unspecified; R21 Rash and other nonspecific skin eruption; E86.0 Dehydration; F42.9 Obsessive-compulsive disorder, unspecified; F41.9 Anxiety disorder, unspecified; E83.42 Hypomagnesemia; Z95.5 Presence of coronary angioplasty implant and graft; Z95.810 Presence of automatic (implantable) cardiac defibrillator; Z87.891 Personal history of nicotine dependence
CPT/HCPCS: 36415; 71045; 80048; 80053; 80061; 80202; 81000; 83735; 83874; 83880; 84443; 84484; 85025; 85610; 85652; 85730; 86038; 86141; 86235; 86431; 86618; 86666; 86668; 86757; 86780; 87040; 93005; 93041; 93306; 96374

== ENCOUNTER → 2020-02-15 | Outpatient (CLI) | payer BC, OTHER ==
[~2020-02-15] MED LIST changes: +ACHD5005 PO; +ASCO100099 PO; +ASPI-586 PO; +CALC-140 PO; +CARV3.122 PO; +CEPH-507 PO; +CEPH500C PO; +CEPH500T PO; +FURO40TA4 PO; -IOHEXOL 350 MG/ML 100 ML (OMNIPAQUE 350) VIAL IV ONE; +MV,M1TAB2 PO; -NS 100 ML (IVPB) BAG IV ONE; +PANT40TA52 PO; +POTA99TA21 PO; +SACU1TAB2 PO; +SPIR25TA PO; +TR1C15 TD; +TURM538C PO
== END ==
LOC: CARD 13:24
PROVIDERS: ATTEND Internal Medicine Cardiovascular Disease
DX: I50.23 Acute on chronic systolic (congestive) heart failure (principal); I08.1 Rheumatic disorders of both mitral and tricuspid valves
CPT/HCPCS: 93306

== ENCOUNTER → 2020-02-20 | Outpatient (CLI) | payer OTHER ==
[2020-02-20 12:50] LABS: ALBUMIN 4.1 GM/DL (3.2-4.5); POTASSIUM 4.6 MMOL/L (3.6-5.0)
[2020-02-20 12:52] LABS: CALCIUM 10.1 MG/DL (8.5-10.1)
[2020-02-20 12:53] LABS: TOTAL PROTEIN 9.2 GM/DL (6.4-8.2)
[2020-02-20 12:55] LABS: BILIRUBIN,TOTAL 0.9 MG/DL (0.1-1.0)
[2020-02-20 12:56] LABS: CREATININE SERUM 2.13 MG/DL (0.60-1.30)
== END ==
LOC: LAB 12:22
PROVIDERS: ATTEND Nurse Practitioner Family
DX: I50.23 Acute on chronic systolic (congestive) heart failure (principal)
CPT/HCPCS: 36415; 80053

== ENCOUNTER → 2020-03-07 | Outpatient (CLI) | payer OTHER ==
[2020-03-07 16:15] LABS: POTASSIUM 4.7 MMOL/L (3.6-5.0)
[2020-03-07 16:16] LABS: CALCIUM 10.4 MG/DL (8.5-10.1)
[2020-03-07 16:20] LABS: CREATININE SERUM 2.32 MG/DL (0.60-1.30)
== END ==
LOC: LAB 15:32
PROVIDERS: ATTEND Nurse Practitioner Family
DX: I50.23 Acute on chronic systolic (congestive) heart failure (principal)
CPT/HCPCS: 36415; 80048

== ENCOUNTER → 2020-03-20 | Outpatient (CLI) | payer OTHER ==
[2020-03-20 11:43] LABS: ALBUMIN 3.9 GM/DL (3.2-4.5); BILIRUBIN,TOTAL 0.7 MG/DL (0.1-1.0); CALCIUM 10.1 MG/DL (8.5-10.1); CREATININE SERUM 2.26 MG/DL (0.60-1.30); MAGNESIUM 1.9 MG/DL (1.6-2.4); TOTAL PROTEIN 8.3 GM/DL (6.4-8.2)
== END ==
LOC: LAB 10:56
PROVIDERS: ATTEND Nurse Practitioner Family
DX: I50.23 Acute on chronic systolic (congestive) heart failure (principal); N18.30 Chronic kidney disease, stage 3 unspecified
CPT/HCPCS: 36415; 80053; 83735

== ENCOUNTER → 2020-05-06 | Outpatient (CLI) | payer OTHER | LOC: LABNPT 07:32 | DX: Z53.9 Procedure and treatment not carried out, unspecified reason (principal) ==

== ENCOUNTER → 2020-05-27 | Outpatient (CLI) | payer OTHER ==
[2020-05-27 14:42] LABS: HEMOGLOBIN 15.1 g/dL (13.3-17.7); MEAN PLATELET VOLUME 9.4 fL (9.0-12.2); WHITE BLOOD COUNT 5.3 10^3/uL (4.3-11.0)
[2020-05-27 14:54] LABS: POTASSIUM 4.2 MMOL/L (3.6-5.0)
[2020-05-27 14:55] LABS: CALCIUM 9.2 MG/DL (8.5-10.1)
[2020-05-27 15:00] LABS: CREATININE SERUM 1.75 MG/DL (0.60-1.30)
== END ==
LOC: LAB 14:18
PROVIDERS: ATTEND Internal Medicine Cardiovascular Disease
DX: I34.0 Nonrheumatic mitral (valve) insufficiency (principal)
CPT/HCPCS: 36415; 80048; 85027

== ENCOUNTER → 2020-05-27 | Outpatient (CLI) | payer OTHER | LOC: LABNPT 06:25 | PROVIDERS: ATTEND Thoracic Surgery (Cardiothoracic Vascular Surgery) | DX: Z20.822 Contact with and (suspected) exposure to COVID-19 (principal) | CPT/HCPCS: 87635 ==

== ENCOUNTER 2020-06-24 13:30 | Outpatient (RCR) | payer OTHER ==
[2020-06-23 17:30] VITALS: BP 102/77
[~2020-06-24] VITALS: Ht 177.8 cm; Wt 81.4 kg
[2020-06-24 13:30] VITALS: BP 119/88
--- NOTE | 2020-06-24 15:25 | Diagnostic Imaging Report ---
INDICATION: Evaluation for PICC line. COMPARISON: 12/17/2018. FINDINGS: Left PICC line has been placed in the interim. This extends into the right atrium. Would recommend withdrawing approximately 4 cm. ICD pacer on the left remains in good position. The lungs are well aerated. There is patchy-appearing infiltrate developing in the right lung base. The heart remains mildly enlarged. No evidence of pulmonary edema. IMPRESSION: 1. Right PICC line present extending into the right atrium. Would withdraw approximately 4 cm to have the tip in the inferior vena cava. 2. Mild infiltrate has developed in the right lower lobe. Dictated by: Dictated on workstation # [id number]
[2020-07-26] MEDS ORDERED: SPIR25TA PO (12:01)
[2020-07-26] MEDS ORDERED: FURO20TA4 PO (12:01)
[2020-07-26] MEDS ORDERED: PANT40TA52 PO (12:01)
[2020-07-26] MEDS ORDERED: ASCO100099 PO (12:01)
[2020-07-26] MEDS ORDERED: PRD20T PO (12:04)
[2020-07-26] MEDS ORDERED: HYDR-3922 PO (12:04)
[2020-07-26] MEDS ORDERED: EMPA10TA PO (12:04)
[2020-07-26] MEDS ORDERED: SERT-413 PO (12:04)
[2020-07-26] MEDS ORDERED: AMIO400T5 PO (12:04)
[2020-07-26] MEDS ORDERED: ATOR40TA70 PO (12:04)
[2020-07-26] MEDS ORDERED: ISOS10TA66 PO (12:04)
[2020-07-26] MEDS ORDERED: GARL10002 PO (12:10)
[2020-07-26] MEDS ORDERED: VITA1CAP PO (12:10)
[2020-07-26] MEDS ORDERED: OMEG1CAP58 PO (12:10)
[2020-07-26] MEDS ORDERED: DICL100G18 TP (12:10)
[2020-07-26] MEDS ORDERED: MILR20PI IV (12:10)
[2020-07-28] MEDS ORDERED: CARV3.122 PO (10:50)
[2020-07-28] MEDS ORDERED: SPIR25TA5 PO (10:50)
[2020-07-28] MEDS ORDERED: PANT40TA52 PO (10:50)
[2020-07-28] MEDS ORDERED: ASCO500T7 PO (10:50)
[2020-07-28] MEDS ORDERED: MULT-1136 PO (10:50)
[2020-07-28] MEDS ORDERED: ASPI-1238 PO (10:50)
[2020-07-30] MEDS ORDERED: CEFA2PIG IV ×2 (11:21→14:21)
== END 2020-09-21 | disposition home or self-care (01) ==
LOC: SDC 13:30
PROVIDERS: ATTEND Nurse Practitioner
DX: R91.8 Other nonspecific abnormal finding of lung field (principal); I50.42 Chronic combined systolic (congestive) and diastolic (congestive) heart failure
CPT/HCPCS: 36569; 71045; 76937

== ENCOUNTER 2020-07-23 18:31 | Emergency (ER) | payer OTHER ==
[~2020-07-23] VITALS: Ht 177.8 cm; Wt 81.4 kg
[2020-07-23 18:58] LABS: BASOPHILS % (AUTO) 0 % (0-10); EOSINOPHILS % (AUTO) 0 % (0-10); HEMATOCRIT 45 % (40-54); HEMOGLOBIN 14.9 g/dL (13.3-17.7); LYMPHOCYTES # (AUTO) 0.6 10^3/uL (1.0-4.0); LYMPHOCYTES % (AUTO) 7 % (12-44); MEAN CORPUSCULAR HEMOGLOBIN 33 pg (25-34); MEAN CORPUSCULAR HGB CONC 33 g/dL (32-36); MEAN CORPUSCULAR VOLUME 100 fL (80-99); MONOCYTES # (AUTO) 0.5 10^3/uL (0.0-1.0); MONOCYTES % (AUTO) 6 % (0-12); NEUTROPHILS # (AUTO) 6.9 10^3/uL (1.8-7.8); NEUTROPHILS % (AUTO) 86 % (42-75); PLATELET COUNT 176 10^3/uL (130-400)
[2020-07-23 19:09] LABS: ALBUMIN 4.1 GM/DL (3.2-4.5)
[2020-07-23 19:10] LABS: POTASSIUM 4.6 MMOL/L (3.6-5.0)
[2020-07-23 19:11] LABS: CALCIUM 9.7 MG/DL (8.5-10.1)
[2020-07-23 19:12] LABS: TOTAL PROTEIN 8.8 GM/DL (6.4-8.2)
--- NOTE | 2020-07-23 19:13 | ED General ---
General Chief Complaint: General Problems/Pain Stated Complaint: L ARM SWELLING NEAR PICC LINE Nursing Triage Note: PATIENT PRESENTS C/O SWELLING IN HIS UPPER LEFT ARM AROUND WHERE HIS PICC LINE IS LOCATED. Nursing Sepsis Screen: No Definite Risk Source of Information: Patient History of Present Illness Date Seen by Provider: Jul 23, 2020 Time Seen by Provider: 18:40 Initial Comments PT ARRIVES VIA POV FROM HOME PT HAS PICC LINE IN PLACE TO LEFT UPPER ARM--THIS IS SECOND ONE AND IT WAS PLACED OVER A MONTH AGO,, FIRST ONE WAS PLACED A WEEK OR TWO PRIOR AND OCCLUDED PT IS RECEIVING CONTINUOUS MILRINONE INFUSION STATES FOR THE LAST 3 DAYS, HE HAS HAD SWELLING AROUND THE SITE--MOSTLY TO PO STERIOR ASPECT OF LEFT UPPER ARM, AND TENDERNESS AROUND THE AREA INFUSION APPARATUS/DEVICE APPEARS TO BE WORKING NORMALLY, AND PT STATES NO WARNING SIGNALS HAVE GONE OFF NO FEVER NO REDNESS OR DISCOLORATION TO THE AREA NO CHEST PAIN NO SHORTNESS OF BREATH NO PALPITATIONS NO PARESTHESIAS OR MOTOR DEFICITS NO SWELLING TO DISTAL ARM BELOW [facility] MONITORS THE DEVICE, AND HAS BEEN THERE THIS WEEK AND DID NOT FIND ANY PROBLEMS WITH THE DEVICE AND VERIFIED THAT IT IS INFUSING NORMALLY SYMPTOMS NO DIFFERENT TONIGHT HAS NOT SOUGHT CARE UNTIL TONIGHT PCP: [facility] [place] CARDIOLGIST: SEES DR. OBREGON LOCALLY AND DR. NICOLE AT CHF SPECIALIST: DR. AREVALO, RISHI Allergies and Home Medications Allergies Coded Allergies: No Allergy Information Available (Unverified , 02/28/17) Home Medications Ascorbic Acid 1,000 Mg Tablet, 1,000 MG PO HS, (Reported) Aspirin 81 Mg Tablet., 81 MG PO DAILY, (Reported) Calcium Carbonate/Vitamin D3 1 Each Tablet, 1 EACH PO DAILY, (Reported) Carvedilol 3.125 Mg Tablet, 3.125 MG PO BID Prescribed by: KIKI FERNÁNDEZ on 12/20/18 1027 Cephalexin 500 Mg Capsule, 500 MG PO QID Prescribed by: KIKI FERNÁNDEZ on 12/20/18 1031 Furosemide 40 Mg Tablet, 40 MG PO BID, (Reported) Hydrocodone Bit/Acetaminophen 1 Tab Tab, 1 TAB PO Q6H PRN for PAIN-MODERATE 7- 10/10 Prescribed by: KIKI FERNÁNDEZ on 12/20/18 1027 Mv,Minerals/FA/Lycopene/Ginkgo 1 Each Tablet, 1 EACH PO DAILY, (Reported) Pantoprazole Sodium 40 Mg Tablet.dr, 40 MG PO DAILY, (Reported) LAST FILLED 09-16-2018 #30 Potassium Gluconate 99 Mg Tablet, 99 MG PO DAILY, (Reported) Sacubitril/Valsartan 1 Each Tablet, 1 TAB PO BID, (Reported) Spironolactone 25 Mg Tablet, 25 MG PO DAILY, (Reported) LAST FILLED 09-23-2018 #30 Triamcinolone Acet 15 Gm Cr, 1 APPLIC TD BID, (Reported) APPLY CREAM EXTERNALLY TO AFFECTED AREA TWICE DAILY DIRECTED (NECK DOWN TO FEET) Turmeric Root Extract 538 Mg Capsule, 538 MG PO HS, (Reported) Patient Home Medication List Home Medication List Reviewed: Yes Review of Systems Review of Systems Constitutional: no symptoms reported Respiratory: no symptoms reported Cardiovascular: no symptoms reported Musculoskeletal: see HPI Skin: no symptoms reported Psychiatric/Neurological: No Symptoms Reported Hematologic/Lymphatic: No Symptoms Reported Immunological/Allergic: no symptoms reported Past Abkojdj-Hvorbv-Zjhnth Hx Past Med/Social Hx: Reviewed and Corrections made Patient Social History Alcohol Use: Denies Use Number of Drinks Today: AA Alcohol Beverage of Choice: Beer Smoking Status: Former Smoker Former Smoker, Quit: Dec 08, 2009 2nd Hand Smoke Exposure: Yes Recent Infectious Disease Expo: No Recent Hopitalizations: No Past Medical History Surgeries: Yes Cardiac, Coronary Stent, Defibrillator Respiratory: No Cardiac: Yes (CONTINOUS MILRINONE INFUSION ; CHF) Cardiomyopathy, Chronic Edema/Swelling, Coronary Artery Disease, Hypertension Neurological: No Genitourinary: Yes (CHRONIC RENAL INSUFFICIENCY) Gastrointestinal: No Musculoskeletal: No Endocrine: Yes (BORDERLINE NIDDM) HEENT: No Cancer: No Psychosocial: No Integumentary: Yes (BLATERAL EDEMA TO LE) Blood Disorders: No Adverse Reaction/Blood Tranf: No Family Medical History Patient reports no known family medical history. Physical Exam Vital Signs Vital Signs - First Documented 07/23/20 18:40 Temp 36.6 Pulse 66 Resp 16 B/P (MAP) 108/67 (81) Pulse Ox 98 O2 Delivery Room Air Capillary Refill : Less Than 3 Seconds Height, Weight, BMI Height: '" Weight: lbs. oz. kg; 25.00 BMI Method: General Appearance: No Apparent Distress, WD/WN Respiratory: Normal Breath Sounds, No Accessory Muscle Use, No Respiratory Distress Cardiovascular: Regular Rate, Rhythm, No Edema, No Murmur, Normal Peripheral Pulses Extremity: Other (LEFT UPPER ARM WITH PICC LINE IN PLACE, APPEARS TO BE INFUSING NORMALLY. HAS SOFT FLUID COLLECTION TO POSTERIOR ASPECT OF LEFT UPPER ARM, AND IS MILDLY TENDER. NO OBVIOUS DISCOLORATION OF SKIN. DOES HAVE SOME CORDING TO INNER ASPECT OF UPPER ARM--TO AXILLA. 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 Norm as Tested Skin: Normal Color (PT IS BLACK), Warm/Dry, Other (FEW OLD, SCABBED SORES TO LEFT UPPER ARM, PROXIMAL TO PICC LINE--FROM PREVIOUS DRESSING SITES) Progress/Results/Core Measures Suspected Sepsis Recent Fever Within 48 Hours: No Infection Criteria Present: None New/Unexplained Altered Menta: No Sepsis Screen: No Definite Risk SIRS Temperature: Pulse: 66 Respiratory Rate: 16 Laboratory Tests 07/23/20 18:50: White Blood Count 8.0 Blood Pressure 108 /67 Mean: 81 Laboratory Tests 07/23/20 18:50: Creatinine 1.81H, INR Comment 1.0, Platelet Count 176, Total Bilirubin 0.5 Results/Orders Lab Results Laboratory Tests Test 07/23/20 18:50 Range/Units White Blood Count 8.0 4.3-11.0 10^3/uL Red Blood Count 4.55 4.30-5.52 10^6/uL Hemoglobin 14.9 13.3-17.7 g/dL Hematocrit 45 40-54 % Mean Corpuscular Volume 100 H 80-99 fL Mean Corpuscular Hemoglobin 33 25-34 pg Mean Corpuscular Hemoglobin Concent 33 32-36 g/dL Red Cell Distribution Width 14.1 10.0-14.5 % Platelet Count 176 130-400 10^3/uL Mean Platelet Volume 9.0 9.0-12.2 fL Immature Granulocyte % (Auto) 1 % Neutrophils (%) (Auto) 86 H 42-75 % Lymphocytes (%) (Auto) 7 L 12-44 % Monocytes (%) (Auto) 6 0-12 % Eosinophils (%) (Auto) 0 0-10 % Basophils (%) (Auto) 0 0-10 % Neutrophils # (Auto) 6.9 1.8-7.8 10^3/uL Lymphocytes # (Auto) 0.6 L 1.0-4.0 10^3/uL Monocytes # (Auto) 0.5 0.0-1.0 10^3/uL Eosinophils # (Auto) 0.0 0.0-0.3 10^3/uL Basophils # (Auto) 0.0 0.0-0.1 10^3/uL Immature Granulocyte # (Auto) 0.0 0.0-0.1 10^3/uL Neutrophils % (Manual) 94 % Lymphocytes % (Manual) 3 % Monocytes % (Manual) 3 % Eosinophils % (Manual) 0 % Basophils % (Manual) 0 % Band Neutrophils 0 % Blood Morphology Comment NORMAL Erythrocyte Sedimentation Rate 57 H 0-30 MM/HR Prothrombin Time 13.4 12.2-14.7 SEC INR Comment 1.0 0.8-1.4 Activated Partial Thromboplast Time 32 24-35 SEC Sodium Level 136 135-145 MMOL/L Potassium Level 4.6 3.6-5.0 MMOL/L Chloride Level 100 98-107 MMOL/L Carbon Dioxide Level 24 21-32 MMOL/L Anion Gap 12 5-14 MMOL/L Blood Urea Nitrogen 19 H 7-18 MG/DL Creatinine 1.81 H 0.60-1.30 MG/DL Estimat Glomerular Filtration Rate 46 BUN/Creatinine Ratio 10 Glucose Level 121 H 70-105 MG/DL Calcium Level 9.7 8.5-10.1 MG/DL Corrected Calcium 9.6 8.5-10.1 MG/DL Magnesium Level 2.1 1.6-2.4 MG/DL Total Bilirubin 0.5 0.1-1.0 MG/DL Aspartate Amino Transf (AST/SGOT) 25 5-34 U/L Alanine Aminotransferase (ALT/SGPT) 22 0-55 U/L Alkaline Phosphatase 99 40-136 U/L C-Reactive Protein High Sensitivity 2.95 H 0.00-0.50 MG/DL Total Protein 8.8 H 6.4-8.2 GM/DL Albumin 4.1 3.2-4.5 GM/DL My Orders Orders - JOI CORTES DO Ed Iv/Invasive Line Start (07/23/20 18:46) Monitor-Rhythm Ecg Trace Only (07/23/20 18:46) Cbc With Automated Diff (07/23/20 18:46) Comprehensive Metabolic Panel (07/23/20 18:46) Hs C Reactive Protein (07/23/20 18:46) Magnesium (07/23/20 18:46) Protime With Inr (07/23/20 18:46) Partial Thromboplastin Time (07/23/20 18:46) Erythrocyte Sedimentation Rate (07/23/20 18:46) Us Venous Upper Ext Lt (07/23/20 18:46) Manual Differential (07/23/20 18:50) Blood Culture (07/23/20 21:09) Enoxaparin Injection (Lovenox Injection) (07/23/20 21:15) Medications Given in ED Current Medications Medications Dose Ordered Sig/Ivan Route Start Time Stop Time Status Last Admin Dose Admin Enoxaparin Sodium 80 mg ONCE ONCE SC 07/23/20 21:15 07/23/20 21:16 DC 07/23/20 21:21 80 MG Vital Signs/I&O 07/23/20 07/23/20 18:40 21:57 Temp 36.6 Pulse 66 61 Resp 16 16 B/P (MAP) 108/67 (81) 134/69 Pulse Ox 98 97 O2 Delivery Room Air Room Air Capillary Refill : Less Than 3 Seconds Blood Pressure Mean: 81 Diagnostic Imaging Comments ULTRASOUND/VENOUS DOPPLER LEFT ARM--PER RADIOLOGIST REPORT AT 2046 FINDINGS: Left upper extremity venous Doppler demonstrates a PICC line in the left basilic vein. Small amount of nonocclusive thrombus is seen along the PICC line. Remainder of the deep venous system appears normal. IMPRESSION: There is nonocclusive thrombus adjacent to the PICC line within the basilic vein. Reviewed: Reviewed by Me Departure Communication (Admissions) 2049--CALLED CARMELINA BLACKWELL DR., CHF SPECIALIST, OR SULFUR BURNER PHYSICIAN. 2100--SPOKE WITH DR. MIC CARR, SULFUR BURNER HEART FAILURE SPECIALIST. HE DEFERS TO INTERNAL MEDICINE FOR TREATMENT OF CLOT, ADVISES OUTPATIENT PICC LINE CHANGE. ADVISES BLOOD CULTURES TO RULE OUT INFECTION. 2107--SPOKE WITH DR. FERNÁNDEZ, SULFUR BURNER FOR [facility], SHE ADVISES TO CONTINUE PT ON ASPIRIN, AND HAVE PT CALL DAY SURGERY IN THE MORNING TO SCHEDULE NEW PICC LINE PLACEMENT TOMORROW. POULTRY [employer]EDER CONTACTED REGARDING THIS AND INFORMATION WAS GIVEN TO PT. Impression Primary Impression: NON OCCLUSIVE THROMBUS LEFT BASILIC VEIN AROUND PICC LINE Additional Impressions: CHF (congestive heart failure) CONTINUOUS MILRINONE INFUSION Disposition: HOME, SELF-CARE Condition: Stable Departure-Patient Inst. Decision time for Depature: 21:10 Referrals: [facility] (PCP/Family) Primary Care Physician Patient Instructions: Medical Devices for Heart Failure, Phlebitis (DC), Superficial Phlebitis Add. Discharge Instructions: CONTINUE YOUR CURRENT MEDICATIONS INCREASE YOUR ASPIRIN TO FULL ASPIRIN--( 4 BABY ASPIRIN OR ONE 325 MG ASPIRIN) CALL DAY SURGERY IN THE MORNING TO SCHEDULE PICC LINE REPLACEMENT TOMORROW. INFORMATION GIVEN. RETURN TO ER IF PROBLEMS All discharge instructions reviewed with patient and/or family. Voiced understanding. JOI CORTES DO Jul 23, 2020 19:13
[2020-07-23 19:14] LABS: BILIRUBIN,TOTAL 0.5 MG/DL (0.1-1.0)
[2020-07-23 19:15] LABS: PROTHROMBIN TIME PATIENT 13.4 SEC (12.2-14.7)
[2020-07-23 19:16] LABS: BAND NEUTROPHILS 0 %; BASOPHILS % (MANUAL) 0 %; CREATININE SERUM 1.81 MG/DL (0.60-1.30); EOSINOPHILS % (MANUAL) 0 %; LYMPHOCYTES % (MANUAL) 3 %; MONOCYTES % (MANUAL) 3 %; NEUTROPHILS % (MANUAL) 94 %; RBC MORPH NORMAL
[2020-07-23 19:19] LABS: MAGNESIUM 2.1 MG/DL (1.6-2.4)
[2020-07-23 19:20] LABS: ERYTHROCYTE SEDIMENTATION RATE 57 MM/HR (0-30)
--- NOTE | 2020-07-23 20:41 | Diagnostic Imaging Report ---
PROCEDURE: US venous upper extremity left. TECHNIQUE: Multiple realtime grayscale images were obtained of left upper extremity in various projections. Additional spectral analysis and color Doppler duplex images were also obtained. INDICATION: Swelling around the PICC line FINDINGS: Left upper extremity venous Doppler demonstrates a PICC line in the left basilic vein. Small amount of nonocclusive thrombus is seen along the PICC line. Remainder of the deep venous system appears normal. IMPRESSION: There is nonocclusive thrombus adjacent to the PICC line within the basilic vein. Dictated by: Dictated on workstation # [id number]
[2020-07-23] MEDS ORDERED: ENOXAPARIN 80 MG/0.8 ML (LOVENOX) SYR SC ONE (21:15)
[2020-07-23 21:57] VITALS: BP 134/69
== END 2020-07-23 21:57 | disposition home or self-care (01) ==
LOC: EDUNIT# 18:31 → ER 18:33
DX: I82.612 Acute embolism and thrombosis of superficial veins of left upper extremity (principal); I13.0 Hypertensive heart and chronic kidney disease with heart failure and stage 1 through stage 4 chronic kidney disease, or unspecified chronic kidney disease; I50.9 Heart failure, unspecified; N18.9 Chronic kidney disease, unspecified; I25.10 Atherosclerotic heart disease of native coronary artery without angina pectoris; Z87.891 Personal history of nicotine dependence; Z77.22 Contact with and (suspected) exposure to environmental tobacco smoke (acute) (chronic); Z97.8 Presence of other specified devices; Z95.5 Presence of coronary angioplasty implant and graft; Z95.810 Presence of automatic (implantable) cardiac defibrillator; Z79.82 Long term (current) use of aspirin; Z79.899 Other long term (current) drug therapy
CPT/HCPCS: 36415; 80053; 83735; 85007; 85027; 85610; 85652; 85730; 86141; 87040; 93041

== ENCOUNTER 2020-07-26 09:10 | Inpatient (IN) | payer OTHER ==
[~2020-07-26] VITALS: Ht 177 cm; Wt 77.9 kg
[2020-07-26 10:05] LABS: BASOPHILS % (AUTO) 0 % (0-10); EOSINOPHILS % (AUTO) 0 % (0-10); HEMATOCRIT 44 % (40-54); HEMOGLOBIN 14.1 g/dL (13.3-17.7); LYMPHOCYTES # (AUTO) 0.7 10^3/uL (1.0-4.0); LYMPHOCYTES % (AUTO) 6 % (12-44); MEAN CORPUSCULAR HEMOGLOBIN 33 pg (25-34); MEAN CORPUSCULAR HGB CONC 32 g/dL (32-36); MEAN CORPUSCULAR VOLUME 101 fL (80-99); MONOCYTES # (AUTO) 1.3 10^3/uL (0.0-1.0); MONOCYTES % (AUTO) 12 % (0-12); NEUTROPHILS # (AUTO) 9.3 10^3/uL (1.8-7.8); NEUTROPHILS % (AUTO) 82 % (42-75); PLATELET COUNT 166 10^3/uL (130-400); WHITE BLOOD COUNT 11.4 10^3/uL (4.3-11.0)
[2020-07-26 10:14] LABS: ALBUMIN 3.7 GM/DL (3.2-4.5); POTASSIUM 4.2 MMOL/L (3.6-5.0)
[2020-07-26 10:15] LABS: CALCIUM 9.3 MG/DL (8.5-10.1)
[2020-07-26 10:16] LABS: TOTAL PROTEIN 8.1 GM/DL (6.4-8.2)
[2020-07-26 10:18] LABS: BILIRUBIN,TOTAL 0.4 MG/DL (0.1-1.0)
[2020-07-26 10:20] LABS: CREATININE SERUM 1.59 MG/DL (0.60-1.30)
[2020-07-26 10:24] LABS: BAND NEUTROPHILS 0 %; BASOPHILS % (MANUAL) 0 %; EOSINOPHILS % (MANUAL) 2 %; LYMPHOCYTES % (MANUAL) 7 %; MONOCYTES % (MANUAL) 13 %; NEUTROPHILS % (MANUAL) 78 %
[2020-07-26 10:25] LABS: RBC MORPH NORMAL
--- NOTE | 2020-07-26 10:30 | ED General ---
General Chief Complaint: General Problems/Pain Stated Complaint: POSS INFECTION Nursing Triage Note: PT TO ED FOR POSSIBLE BLOOD INFECTION, PT WAS TOLD BY TO COME TO ED D/T +BC. PT HAD 2 PORT CENTRAL LINE INSERTED IN R CHEST AREA IN YESTERDAY. PT CO OF DISCOMFORT IN L ARM FROM PORT BEING DC'D AND BLOOD CLOT. PT RECIEVES MIL INFUSING CONTINUOUSLY FOR CHF. L UPPER ARM SWOLLEN, PAINFUL AND WARM TO TOUCH. DRESSING INTACT NO DRAINAGE Nursing Sepsis Screen: No Definite Risk Source of Information: Patient Exam Limitations: No Limitations History of Present Illness Date Seen by Provider: Jul 26, 2020 Time Seen by Provider: 09:31 Initial Comments Here with concerns about possible blood infection. He was told by [facility] to report to the ED for evaluation. Apparently he had 1 bottle of a blood culture, positive for gram-positive cocci. This was apparently drawn from the left arm. He does have history of previous PICC line that was there that was removed. Does complain of swelling to that left arm as well as increasing pain. Reports may have had fever 2 nights ago. Does have history of heart failure and is on milrinone pump. Denies nausea, vomiting or diarrhea. Takes medications as directed. Timing/Duration: 2-3 Days, Getting Worse Severity: Moderate Associated Systoms: No Chest Pain, No Cough; Fever/Chills; No Nausea/Vomiting, No Shortness of Air, No Weakness Allergies and Home Medications Allergies Coded Allergies: No Allergy Information Available (Unverified , 02/28/17) Home Medications Ascorbic Acid 1,000 Mg Tablet, 1,000 MG PO HS, (Reported) Aspirin 81 Mg Tablet.dr, 81 MG PO DAILY, (Reported) Calcium Carbonate/Vitamin D3 1 Each Tablet, 1 EACH PO DAILY, (Reported) Carvedilol 3.125 Mg Tablet, 3.125 MG PO BID Prescribed by: KIKI FERNÁNDEZ on 12/20/18 1027 Cephalexin 500 Mg Capsule, 500 MG PO QID Prescribed by: KIKI FERNÁNDEZ on 12/20/18 1031 Furosemide 40 Mg Tablet, 40 MG PO BID, (Reported) Hydrocodone Bit/Acetaminophen 1 Tab Tab, 1 TAB PO Q6H PRN for PAIN-MODERATE 7- 10/10 Prescribed by: KIKI FERNÁNDEZ on 12/20/18 1027 Mv,Minerals/FA/Lycopene/Ginkgo 1 Each Tablet, 1 EACH PO DAILY, (Reported) Pantoprazole Sodium 40 Mg Tablet.dr, 40 MG PO DAILY, (Reported) LAST FILLED 09-16-2018 #30 Potassium Gluconate 99 Mg Tablet, 99 MG PO DAILY, (Reported) Sacubitril/Valsartan 1 Each Tablet, 1 TAB PO BID, (Reported) Spironolactone 25 Mg Tablet, 25 MG PO DAILY, (Reported) LAST FILLED 09-23-2018 #30 Triamcinolone Acet 15 Gm Cr, 1 APPLIC TD BID, (Reported) APPLY CREAM EXTERNALLY TO AFFECTED AREA TWICE DAILY DIRECTED (NECK DOWN TO FEET) Turmeric Root Extract 538 Mg Capsule, 538 MG PO HS, (Reported) Patient Home Medication List Home Medication List Reviewed: Yes Review of Systems Review of Systems Constitutional: see HPI; No chills; fever; No weakness EENTM: no symptoms reported; No nose congestion, No throat pain Respiratory: No cough, No short of breath Cardiovascular: no symptoms reported Gastrointestinal: No diarrhea, No nausea, No vomiting Genitourinary: no symptoms reported Musculoskeletal: see HPI; No joint pain; muscle pain Skin: change in color; No lesions Psychiatric/Neurological: No Symptoms Reported All Other Systems Reviewed Negative Unless Noted: Yes Past Mkuvkli-Amogqj-Oesfsh Hx Past Med/Social Hx: Reviewed Nursing Past Med/Soc Hx Patient Social History Alcohol Use: Denies Use Number of Drinks Today: AA Alcohol Beverage of Choice: Beer Smoking Status: Former Smoker Former Smoker, Quit: Dec 08, 2009 2nd Hand Smoke Exposure: Yes Recent Infectious Disease Expo: No Recent Hopitalizations: No Past Medical History Surgeries: Yes Cardiac, Coronary Stent, Defibrillator Respiratory: No Cardiac: Yes (CONTINOUS MILRINONE INFUSION ; CHF) Cardiomyopathy, Chronic Edema/Swelling, Coronary Artery Disease, Hypertension Neurological: No Genitourinary: Yes (CHRONIC RENAL INSUFFICIENCY) Gastrointestinal: No Musculoskeletal: No Endocrine: Yes (BORDERLINE NIDDM) HEENT: No Cancer: No Psychosocial: No Integumentary: Yes (BLATERAL EDEMA TO LE) Recent Skin Changes Blood Disorders: No Adverse Reaction/Blood Tranf: No Family Medical History Reviewed Nursing Family Hx Patient reports no known family medical history. Physical Exam-Suspected Sepsis Physical Exam Vital Signs Vital Signs - First Documented 07/26/20 09:15 Temp 36.6 Pulse 75 Resp 18 B/P (MAP) 132/87 (102) Pulse Ox 95 Capillary Refill : Less Than 3 Seconds Blood Pressure Mean: 102 Height, Weight, BMI Height: '" Weight: lbs. oz. kg; 26.00 BMI Method: General Appearance: No Apparent Distress, WD/WN HEENT: PERRL/EOMI, Pharynx Normal Neck: Non Tender, Supple Respiratory: Lungs Clear, Normal Breath Sounds Cardiovascular: Regular Rate, Rhythm, Systolic Murmur Gastrointestinal: Non Tender, Soft Extremity: No Calf Tenderness, Inflammation (Left upper arm near site of previous line and extends up to the axilla. This is warm to touch.) Neurologic/Psychiatric: Alert, Oriented x3 Skin: normal color, warm/dry Focused Exam Lactate Level 07/26/20 09:43: Lactic Acid Level 0.98 Lactic Acid Level Laboratory Tests Test 07/26/20 09:43 Lactic Acid Level 0.98 MMOL/L (0.50-2.00) Progress/Results/Core Measures Suspected Sepsis Recent Fever Within 48 Hours: No Infection Criteria Present: Suspected New Infection New/Unexplained Altered Menta: No Sepsis Screen: No Definite Risk SIRS Temperature: Pulse: 75 Respiratory Rate: 18 Laboratory Tests 07/26/20 09:43: White Blood Count 11.4H Blood Pressure 132 /87 Mean: 102 07/26/20 09:43: Lactic Acid Level 0.98 Laboratory Tests 07/26/20 09:43: Creatinine 1.59H, Platelet Count 166, Total Bilirubin 0.4 Results/Orders Lab Results Laboratory Tests Test 07/26/20 09:43 Range/Units White Blood Count 11.4 H 4.3-11.0 10^3/uL Red Blood Count 4.30 4.30-5.52 10^6/uL Hemoglobin 14.1 13.3-17.7 g/dL Hematocrit 44 40-54 % Mean Corpuscular Volume 101 H 80-99 fL Mean Corpuscular Hemoglobin 33 25-34 pg Mean Corpuscular Hemoglobin Concent 32 32-36 g/dL Red Cell Distribution Width 14.4 10.0-14.5 % Platelet Count 166 130-400 10^3/uL Mean Platelet Volume 9.0 9.0-12.2 fL Immature Granulocyte % (Auto) 0 % Neutrophils (%) (Auto) 82 H 42-75 % Lymphocytes (%) (Auto) 6 L 12-44 % Monocytes (%) (Auto) 12 0-12 % Eosinophils (%) (Auto) 0 0-10 % Basophils (%) (Auto) 0 0-10 % Neutrophils # (Auto) 9.3 H 1.8-7.8 10^3/uL Lymphocytes # (Auto) 0.7 L 1.0-4.0 10^3/uL Monocytes # (Auto) 1.3 H 0.0-1.0 10^3/uL Eosinophils # (Auto) 0.0 0.0-0.3 10^3/uL Basophils # (Auto) 0.0 0.0-0.1 10^3/uL Immature Granulocyte # (Auto) 0.1 0.0-0.1 10^3/uL Neutrophils % (Manual) 78 % Lymphocytes % (Manual) 7 % Monocytes % (Manual) 13 % Eosinophils % (Manual) 2 % Basophils % (Manual) 0 % Band Neutrophils 0 % Blood Morphology Comment NORMAL Sodium Level 134 L 135-145 MMOL/L Potassium Level 4.2 3.6-5.0 MMOL/L Chloride Level 99 98-107 MMOL/L Carbon Dioxide Level 22 21-32 MMOL/L Anion Gap 13 5-14 MMOL/L Blood Urea Nitrogen 20 H 7-18 MG/DL Creatinine 1.59 H 0.60-1.30 MG/DL Estimat Glomerular Filtration Rate 54 BUN/Creatinine Ratio 13 Glucose Level 128 H 70-105 MG/DL Lactic Acid Level 0.98 0.50-2.00 MMOL/L Calcium Level 9.3 8.5-10.1 MG/DL Corrected Calcium 9.5 8.5-10.1 MG/DL Total Bilirubin 0.4 0.1-1.0 MG/DL Aspartate Amino Transf (AST/SGOT) 29 5-34 U/L Alanine Aminotransferase (ALT/SGPT) 22 0-55 U/L Alkaline Phosphatase 83 40-136 U/L C-Reactive Protein High Sensitivity 10.76 H 0.00-0.50 MG/DL Total Protein 8.1 6.4-8.2 GM/DL Albumin 3.7 3.2-4.5 GM/DL My Orders Orders - ROHAN GLOVER MD Cbc With Automated Diff (07/26/20 09:43) Comprehensive Metabolic Panel (07/26/20 09:43) Blood Culture (07/26/20 09:43) Vital Signs Adult Sepsis Patie Q15M (07/26/20 09:43) O2 (07/26/20 09:43) Remove Rings In Anticipation O (07/26/20 09:43) Lactic Acid Analyzer (07/26/20 09:43) Hs C Reactive Protein (07/26/20 09:43) Heart Healthy (07/26/20 Breakfast) Manual Differential (07/26/20 09:43) Ceftriaxone (Rocephin) (07/26/20 10:46) Vancomycin Injection (Vancomycin Injecti (07/26/20 11:00) Vancomycin Injection (Vancomycin Injecti (07/26/20 12:00) Vancomycin Injection (Vancomycin Injecti (07/26/20 11:00) Vital Signs/I&O 07/26/20 09:15 Temp 36.6 Pulse 75 Resp 18 B/P (MAP) 132/87 (102) Pulse Ox 95 Capillary Refill : Less Than 3 Seconds Blood Pressure Mean: 102 Progress Note : Progress Note Seen and evaluated. IV, labs, blood cultures and lactic acid ordered. Reviewed previous history of blood cultures. Does have 1+ bottle and is on the culture drawn from the left arm where there is concern for infection. Monitor patient. 1130: We have initiated Rocephin 1 g IV as well as vancomycin weight-based dosing. This is pending sensitivity of the first set of blood cultures. Labs would indicate probable infection and I believe this is in the left arm. The patient would need admission. I did discuss with him. He absolutely refuses admission with Dr. Fernández, on-call for critical access hospital. I did speak with Dr. Carlos who is covering OB for critical access hospital and she accepts patient for admission, observation status. This was discussed with the patient who agrees with plan. Departure Communication (Admissions) Time/Spoke to Admitting Phy: 11:25 Impression Primary Impression: Left arm cellulitis Additional Impression: Positive blood culture Disposition: ADMITTED INPATIENT Condition: Stable Admissions Decision to Admit Reason: Admit from ER (General) Decision to Admit/Date: Jul 26, 2020 Time/Decision to Admit Time: 11:25 Departure-Patient Inst. Referrals: [facility] (PCP/Family) Primary Care Physician ROHAN GLOVER MD Jul 26, 2020 10:30
[2020-07-26] MEDS ORDERED: cefTRIAXone 1,000 MG in WATER (STERILE) FOR INJECTION 10 ML IV STA (10:46)
[2020-07-26] MEDS ORDERED: VANCOMYCIN 1,750 MG/NS 500 ML IVPB IV NR ×2 (11:00)
[2020-07-26] MEDS ORDERED: VANCOMYCIN INJECTION 1,000 MG in NS (IVPB) 250 ML IV ONE (11:00)
--- NOTE | 2020-07-26 11:50 | History & Physical ---
HPI History of Present Illness: 65 yo had a PICC line put in June at in right arm for milrinone infusion, and it got clotted, so he had a left arm one placed here about a month ago. Came to hospital due to recently having problems with swelling and he had cultures done, had the line removed yesterday at and he got port put in yesterday. Last night found out that the culture was positive, but he was doing okay. Today he was having pain and swelling and felt like he had fluid around the previous picc site. He denies fever. Date seen by provider: Jul 26, 2020 Time Seen by Provider: 11:46 Attending Physician PCP [facility] [place],[facility], Later [facility] Consult Date of Admission Home Medications Home Medications Reviewed patient Home Medication Reconciliation performed by pharmacy medication reconciliations lead based paint technician and/or nursing. Patients Allergies have been reviewed. Allergies Coded Allergies: No Allergy Information Available (Unverified , 02/28/17) [id number]-[id number] Hx Patient Social History Smoking Status: Former Smoker 2nd Hand Smoke Exposure: Yes Recent Hopitalizations: No Alcohol Use?: No Substance type: Marijuana (history of THC use, last use June 03, also reports history of positive cocaine screen but did not use intentionally) Past Medical History PMHx: Ischemic dilated cardiomyopathy Congestive heart failure Mitral valve regurgitation Coronary artery disease with history of stenting ICD in place Atrial fibrillation CKD History of stroke PSurgHx: Hiatal hernia Defibrillator placement Family Medical History Significant Family History: Heart Disease (mother), Cancer (uncle with pancreatic cancer), Lung Disease (sister with sarcoidosis) Review of Systems ([facility]) Constitutional: No fever, No weight loss EENTM: No throat pain Respiratory: No cough, No short of breath Cardiovascular: No chest pain Gastrointestinal: No abdominal pain, No constipation, No diarrhea, No melena, No nausea, No vomiting Genitourinary: No decreased output, No dysuria, No hematuria Musculoskeletal: No joint pain Skin: No rash Psychiatric/Neurological: Denies Numbness; Weakness (chronic) Reviewed Test Results Reviewed Test Results Lab Laboratory Tests Test 07/26/20 09:43 Range/Units White Blood Count 11.4 H 4.3-11.0 10^3/uL Red Blood Count 4.30 4.30-5.52 10^6/uL Hemoglobin 14.1 13.3-17.7 g/dL Hematocrit 44 40-54 % Mean Corpuscular Volume 101 H 80-99 fL Mean Corpuscular Hemoglobin 33 25-34 pg Mean Corpuscular Hemoglobin Concent 32 32-36 g/dL Red Cell Distribution Width 14.4 10.0-14.5 % Platelet Count 166 130-400 10^3/uL Mean Platelet Volume 9.0 9.0-12.2 fL Immature Granulocyte % (Auto) 0 % Neutrophils (%) (Auto) 82 H 42-75 % Lymphocytes (%) (Auto) 6 L 12-44 % Monocytes (%) (Auto) 12 0-12 % Eosinophils (%) (Auto) 0 0-10 % Basophils (%) (Auto) 0 0-10 % Neutrophils # (Auto) 9.3 H 1.8-7.8 10^3/uL Lymphocytes # (Auto) 0.7 L 1.0-4.0 10^3/uL Monocytes # (Auto) 1.3 H 0.0-1.0 10^3/uL Eosinophils # (Auto) 0.0 0.0-0.3 10^3/uL Basophils # (Auto) 0.0 0.0-0.1 10^3/uL Immature Granulocyte # (Auto) 0.1 0.0-0.1 10^3/uL Neutrophils % (Manual) 78 % Lymphocytes % (Manual) 7 % Monocytes % (Manual) 13 % Eosinophils % (Manual) 2 % Basophils % (Manual) 0 % Band Neutrophils 0 % Blood Morphology Comment NORMAL Sodium Level 134 L 135-145 MMOL/L Potassium Level 4.2 3.6-5.0 MMOL/L Chloride Level 99 98-107 MMOL/L Carbon Dioxide Level 22 21-32 MMOL/L Anion Gap 13 5-14 MMOL/L Blood Urea Nitrogen 20 H 7-18 MG/DL Creatinine 1.59 H 0.60-1.30 MG/DL Estimat Glomerular Filtration Rate 54 BUN/Creatinine Ratio 13 Glucose Level 128 H 70-105 MG/DL Lactic Acid Level 0.98 0.50-2.00 MMOL/L Calcium Level 9.3 8.5-10.1 MG/DL Corrected Calcium 9.5 8.5-10.1 MG/DL Total Bilirubin 0.4 0.1-1.0 MG/DL Aspartate Amino Transf (AST/SGOT) 29 5-34 U/L Alanine Aminotransferase (ALT/SGPT) 22 0-55 U/L Alkaline Phosphatase 83 40-136 U/L C-Reactive Protein High Sensitivity 10.76 H 0.00-0.50 MG/DL Total Protein 8.1 6.4-8.2 GM/DL Albumin 3.7 3.2-4.5 GM/DL Physical Exam-([facility]) Physical Exam Vital Signs VS - Last 72 Hours, by Label 07/26/20 09:15 Temp 36.6 Pulse 75 Resp 18 B/P (MAP) 132/87 (102) Pulse Ox 95 Capillary Refill : Less Than 3 Seconds General Appearance: WD/WN, no apparent distress HEENT: No scleral icterus (R), No scleral icterus (L) Respiratory: lungs clear, normal breath sounds Cardiovascular: regular rate, rhythm, no murmur Peripheral Pulses: 2+ Radial Pulses (L) Gastrointestinal: normal bowel sounds, non tender, soft Extremities: no pedal edema Neurologic/Psychiatric: alert, normal mood/affect, oriented x 3 Skin: other (left upper arm with marked edema, warmth and tenderness, no drainage and no erythema) Assessment/Plan Assessment/Plan Admission Status: Observation (1) CHF (congestive heart failure) Status: Chronic Assessment & Plan: On continuous milrinone infusion per [facility], he has his pump with him and will continue current dosing, no signs of decompensation. Qualifiers: Qualified Codes: I50.22 - Chronic systolic (congestive) heart failure (2) Left arm cellulitis Status: Acute Assessment & Plan: Ceftriaxone and vancomycin (3) Positive blood culture Status: Acute Assessment & Plan: Suspected staph aureus from 07/23 culture, final still pending. Does not meet sepsis criteria- has elevated WBC but no other SIRS criteria. (4) CKD (chronic kidney disease) Status: Chronic Assessment & Plan: At baseline. Qualifiers: Qualified Codes: N18.31 - Chronic kidney disease, stage 3a (5) Borderline diabetes mellitus Status: Chronic (6) Thrombosis Status: Acute Assessment & Plan: Non-occlusive thrombosis associated with left PICC diagnosed on 07/23, however he has had worsening of symptoms, will start enoxaparin and repeat US when available. (7) Ischemic cardiomyopathy with implantable cardioverter-defibrillator (ICD) Status: Chronic (8) Hyponatremia Status: Acute Assessment & Plan: Likely secondary to chronic fluid overload, monitor. (9) DVT prophylaxis Status: Acute Assessment & Plan: Enoxaparin treatment dose ERASTO KAPLAN MD Jul 26, 2020 11:50
[2020-07-26] MEDS ORDERED: VANCOMYCIN INJECTION 750 MG in NS (IVPB) 250 ML IV ONE (12:00)
[2020-07-26] MEDS ORDERED: SPIR25TA PO (12:01)
[2020-07-26] MEDS ORDERED: ASCO100099 PO (12:01)
[2020-07-26] MEDS ORDERED: FURO20TA4 PO (12:01)
[2020-07-26] MEDS ORDERED: PANT40TA52 PO (12:01)
[2020-07-26] MEDS ORDERED: HYDR-3922 PO (12:04)
[2020-07-26] MEDS ORDERED: SERT-413 PO (12:04)
[2020-07-26] MEDS ORDERED: AMIO400T5 PO (12:04)
[2020-07-26] MEDS ORDERED: PRD20T PO (12:04)
[2020-07-26] MEDS ORDERED: ATOR40TA70 PO (12:04)
[2020-07-26] MEDS ORDERED: EMPA10TA PO (12:04)
[2020-07-26] MEDS ORDERED: ISOS10TA66 PO (12:04)
[2020-07-26] MEDS ORDERED: MILR20PI IV (12:10)
[2020-07-26] MEDS ORDERED: VITA1CAP PO (12:10)
[2020-07-26] MEDS ORDERED: GARL10002 PO (12:10)
[2020-07-26] MEDS ORDERED: DICL100G18 TP (12:10)
[2020-07-26] MEDS ORDERED: OMEG1CAP58 PO (12:10)
[2020-07-26] MEDS ORDERED: ONDANSETRON 4 MG/2 ML (SDV) Z0FRAN IVP PRN (13:15)
[2020-07-26 13:30] VITALS: BP 121/87
[2020-07-26 15:50] VITALS: BP 110/62
[2020-07-26] MEDS ORDERED: MILRINONE LACTATE IV SCH (16:30)
[2020-07-26] MEDS ORDERED: [UNRECOGNIZED DRUG - OTHER] IV SCH (16:30)
[2020-07-26] MEDS ORDERED: D5W IV SCH (16:30)
[2020-07-26] MEDS ORDERED: PATIENT MAY USE OWN MEDS, ALL MC SCH (16:45)
[2020-07-26] MEDS: ENOXAPARIN 80 MG/0.8 ML (LOVENOX) SYR SC SCH (17:23)
[2020-07-26 19:08] VITALS: BP 116/64
[2020-07-26] MEDS: ACETAMINOPHEN 500 MG TAB (TYLENOL) PO PRN (20:11)
[2020-07-26] MEDS: ISOSORBIDE DINITRATE 10 MG (ISORDIL) TABLET PO SCH (20:12)
[2020-07-26] MEDS: PANTOPRAZOLE 40 MG (PROTONIX) TAB PO SCH (20:12)
[2020-07-26 23:37] VITALS: BP 114/66
[2020-07-27 03:44] VITALS: BP 116/72
[2020-07-27 05:43] LABS: BASOPHILS # (AUTO) 0.1 10^3/uL (0.0-0.1); BASOPHILS % (AUTO) 1 % (0-10); EOSINOPHILS # (AUTO) 0.1 10^3/uL (0.0-0.3); EOSINOPHILS % (AUTO) 1 % (0-10); HEMATOCRIT 41 % (40-54); HEMOGLOBIN 13.5 g/dL (13.3-17.7); LYMPHOCYTES # (AUTO) 0.9 10^3/uL (1.0-4.0); LYMPHOCYTES % (AUTO) 7 % (12-44); MEAN CORPUSCULAR HEMOGLOBIN 33 pg (25-34); MEAN CORPUSCULAR HGB CONC 33 g/dL (32-36); MEAN CORPUSCULAR VOLUME 99 fL (80-99); MEAN PLATELET VOLUME 9.4 fL (9.0-12.2); MONOCYTES # (AUTO) 1.6 10^3/uL (0.0-1.0); MONOCYTES % (AUTO) 13 % (0-12); NEUTROPHILS # (AUTO) 9.6 10^3/uL (1.8-7.8); NEUTROPHILS % (AUTO) 78 % (42-75); PLATELET COUNT 177 10^3/uL (130-400); WHITE BLOOD COUNT 12.2 10^3/uL (4.3-11.0)
[2020-07-27] MEDS: ENOXAPARIN 80 MG/0.8 ML (LOVENOX) SYR SC SCH ×2 (05:46→17:41)
[2020-07-27 05:54] LABS: POTASSIUM 4.2 MMOL/L (3.6-5.0)
[2020-07-27 05:55] LABS: CALCIUM 9.2 MG/DL (8.5-10.1)
[2020-07-27 06:00] LABS: CREATININE SERUM 1.54 MG/DL (0.60-1.30)
[2020-07-27 08:00] VITALS: BP 113/68
[2020-07-27] MEDS: AMIODARONE 200 MG (CORDARONE) TAB PO SCH (08:23)
[2020-07-27] MEDS: SERTRALINE 50 MG (ZOLOFT) TABLET PO SCH (08:23)
[2020-07-27] MEDS: ISOSORBIDE DINITRATE 10 MG (ISORDIL) TABLET PO SCH ×3 (08:23→20:24)
[2020-07-27] MEDS: FUROSEMIDE 20 MG (LASIX) TAB PO SCH (08:23)
[2020-07-27] MEDS: ASPIRIN E.C. 81 MG (ECOTRIN) TAB PO SCH (08:23)
[2020-07-27] MEDS: SPIRONOLACTONE 25 MG (ALDACTONE) TAB PO SCH (08:23)
[2020-07-27] MEDS: PANTOPRAZOLE 40 MG (PROTONIX) TAB PO SCH ×2 (08:24→20:24)
[2020-07-27] MEDS ORDERED: NON-FORMULARY MEDICATION 1 EA EA (Empagliflozin (Jardiance) 10 MG) PO SCH (09:00)
[2020-07-27] MEDS ORDERED: VANCOMYCIN INJECTION 1,250 MG in NS (IVPB) 250 ML IV SCH (11:00)
[2020-07-27] MEDS ORDERED: cefTRIAXone 1,000 MG/SWFI 10 ML IV PUSH IV SCH ×2 (11:00)
--- NOTE | 2020-07-27 11:28 | Progress Note ---
Subjective Subjective/Events-last exam Patient reports increased pain and swelling around left arm previous PICC site last night but better today. He has new pain in mid right ankle, which reminds him of gout he has had in the past. Afebrile. No headache (had mild last night when he felt hot and had temp 99, but better after that), no abdominal pain. Focused Exam Lactate Level 07/26/20 09:43: Lactic Acid Level 0.98 Objective Exam Last Set of Vital Signs Vital Signs Date Time Temp Pulse Resp B/P (MAP) Pulse Ox O2 Delivery O2 Flow Rate FiO2 07/27/20 08:12 92 Room Air 07/27/20 08:00 36.4 69 20 113/68 (83) Capillary Refill : Less Than 3 Seconds I&O Intake and Output 07/27/20 00:00 Intake Total 1677.5 ml Output Total 1675 ml Balance 2.5 ml Intake Oral 1150 ml IV Total 527.5 ml Output Urine Total 1675 ml Daily Weight Change No General: Alert, No Acute Distress Lungs: Clear to Auscultation, Normal Air Movement Heart: Regular Rate, No Murmurs Abdomen: Normal Bowel Sounds, Soft Extremities: No Edema, Other (marked point ttp just proximal to medial malleolus) Skin: Other (left arm swelling decreased) Neuro: Normal Speech, Strength at 5/5 X4 Ext, Cranial Nerves 3-12 NL Results/Procedures Lab Laboratory Tests 07/27/20 05:08: White Blood Count 12.2H, Red Blood Count 4.14L, Hemoglobin 13.5, Hematocrit 41, Mean Corpuscular Volume 99, Mean Corpuscular Hemoglobin 33, Mean Corpuscular Hemoglobin Concent 33, Red Cell Distribution Width 14.3, Platelet Count 177, Mean Platelet Volume 9.4, Immature Granulocyte % (Auto) 1, Neutrophils (%) (Auto) 78H, Lymphocytes (%) (Auto) 7L, Monocytes (%) (Auto) 13H, Eosinophils (%) (Auto) 1, Basophils (%) (Auto) 1, Neutrophils # (Auto) 9.6H, Lymphocytes # (Auto) 0.9L, Monocytes # (Auto) 1.6H, Eosinophils # (Auto) 0.1, Basophils # (Auto) 0.1, Immature Granulocyte # (Auto) 0.1, Sodium Level 134L, Potassium Level 4.2, Chloride Level 99, Carbon Dioxide Level 22, Anion Gap 13, Blood Urea Nitrogen 20H, Creatinine 1.54H, Estimat Glomerular Filtration Rate 56, BUN/Creatinine Ratio 13, Glucose Level 110H, Calcium Level 9.2 Microbiology 07/26/20 Blood Culture - Preliminary, Resulted Staphylococcus aureus Assessment/Plan Assessment/Plan (1) CHF (congestive heart failure) Status: Chronic Assessment & Plan: On continuous milrinone infusion per [facility], he has his pump with him and will continue current dosing, no signs of decompensation. Qualifiers: Qualified Codes: I50.22 - Chronic systolic (congestive) heart failure (2) Left arm cellulitis Status: Acute Assessment & Plan: Ceftriaxone and vancomycin 07/27 change ceftriaxone to cefazolin based on 07/23 culture (3) Positive blood culture Status: Acute Assessment & Plan: Suspected staph aureus from 07/23 culture, final still pending. Does not meet sepsis criteria- has elevated WBC but no other SIRS criteria. 07/27- repeat cultures from 07/26 positive for staph aureus in all bottles, awaiting MRSA prelim, suspect will be MSSA as culture from 07/23 is MSSA, continue vancomycin, change ceftriaxone to cefazolin. Repeat blood cultures today, echo in the morning for vegetation eval. (4) CKD (chronic kidney disease) Status: Chronic Assessment & Plan: At baseline. Qualifiers: Qualified Codes: N18.31 - Chronic kidney disease, stage 3a (5) Borderline diabetes mellitus Status: Chronic Assessment & Plan: Continue home Jardiance (6) Thrombosis Status: Acute Assessment & Plan: Non-occlusive thrombosis associated with left PICC diagnosed on 07/23, however he has had worsening of symptoms, will start enoxaparin and repeat US when available. (7) Ischemic cardiomyopathy with implantable cardioverter-defibrillator (ICD) Status: Chronic (8) Hyponatremia Status: Acute Assessment & Plan: Likely secondary to chronic fluid overload, monitor. (9) Acute right ankle pain Status: Acute Assessment & Plan: Given exam not consistent with gout and known bacteremia, will obtain x-ray initially and if unrevealing, consider advanced imaging (10) DVT prophylaxis Status: Acute Assessment & Plan: Enoxaparin treatment dose ERASTO KAPLAN MD Jul 27, 2020 11:28
[2020-07-27 12:00] VITALS: BP 115/72
--- NOTE | 2020-07-27 12:43 | Diagnostic Imaging Report ---
INDICATION: Ankle pain, bacteremia. EXAMINATION: Right ankle 07/27/2020 FINDINGS: 3 views of the ankle. There is no evidence for an acute fracture or dislocation. The joint spaces are well maintained. There is no significant soft tissue swelling. IMPRESSION: No acute process. Dictated by: Dictated on workstation # [id number]
--- NOTE | 2020-07-27 12:43 | Diagnostic Imaging Report ---
INDICATION: Ankle pain with bacteremia. EXAMINATION: Right tibia and fibula from 07/27/2020 FINDINGS: 4 views of the tibia and fibula. There is no evidence for an acute fracture or dislocation. The joint spaces are well maintained. There is no significant soft tissue swelling. IMPRESSION: No acute process. Dictated by: Dictated on workstation # [id number]
[2020-07-27] MEDS: ceFAZolin 2 GM IV Premixed 50 ML IV SCH ×2 (13:41→20:02)
[2020-07-27 15:30] VITALS: BP 104/62
[2020-07-27] MEDS: ACETAMINOPHEN 500 MG TAB (TYLENOL) PO PRN (20:24)
[2020-07-27 20:38] VITALS: BP 118/65
[2020-07-28] VITALS: BP 96/58
[2020-07-28] MEDS: ENOXAPARIN 80 MG/0.8 ML (LOVENOX) SYR SC SCH (04:30)
[2020-07-28] MEDS: ceFAZolin 2 GM IV Premixed 50 ML IV SCH ×3 (04:30→20:40)
[2020-07-28 05:14] VITALS: BP 101/64
[2020-07-28 05:37] LABS: BASOPHILS # (AUTO) 0.1 10^3/uL (0.0-0.1); BASOPHILS % (AUTO) 1 % (0-10); EOSINOPHILS % (AUTO) 0 % (0-10); HEMATOCRIT 39 % (40-54); HEMOGLOBIN 12.8 g/dL (13.3-17.7); LYMPHOCYTES # (AUTO) 0.9 10^3/uL (1.0-4.0); LYMPHOCYTES % (AUTO) 9 % (12-44); MEAN CORPUSCULAR HEMOGLOBIN 32 pg (25-34); MEAN CORPUSCULAR HGB CONC 33 g/dL (32-36); MEAN CORPUSCULAR VOLUME 99 fL (80-99); MEAN PLATELET VOLUME 8.6 fL (9.0-12.2); MONOCYTES # (AUTO) 1.4 10^3/uL (0.0-1.0); MONOCYTES % (AUTO) 15 % (0-12); NEUTROPHILS # (AUTO) 7.2 10^3/uL (1.8-7.8); NEUTROPHILS % (AUTO) 75 % (42-75); PLATELET COUNT 179 10^3/uL (130-400); WHITE BLOOD COUNT 9.6 10^3/uL (4.3-11.0)
[2020-07-28 05:45] LABS: CALCIUM 9.1 MG/DL (8.5-10.1)
[2020-07-28 05:49] LABS: CREATININE SERUM 1.69 MG/DL (0.60-1.30)
[2020-07-28 08:17] VITALS: BP 113/69
--- NOTE | 2020-07-28 09:09 | Diagnostic Imaging Report ---
PROCEDURE: US venous upper extremity left. TECHNIQUE: Multiple realtime grayscale images were obtained of left upper extremity in various projections. Additional spectral analysis and color Doppler duplex images were also obtained. INDICATION: Left arm pain. A left internal jugular vein is patent. There is partial thrombus within the proximal left subclavian vein. Axillary vein is patent. There is thrombus identified in the upper and mid aspect of the brachial vein which is nearly occlusive. There is also nearly occlusive thrombus within the basilic vein of the upper arm. Radial ulnar veins as well as cephalic veins are patent. No fluid collections are seen. IMPRESSION: Left upper extremity DVT, as described. Dictated by: Dictated on workstation # [id number]
[2020-07-28] MEDS: ISOSORBIDE DINITRATE 10 MG (ISORDIL) TABLET PO SCH ×3 (09:15→20:41)
[2020-07-28] MEDS: SERTRALINE 50 MG (ZOLOFT) TABLET PO SCH (09:15)
[2020-07-28] MEDS: FUROSEMIDE 20 MG (LASIX) TAB PO SCH (09:15)
[2020-07-28] MEDS: SPIRONOLACTONE 25 MG (ALDACTONE) TAB PO SCH (09:15)
[2020-07-28] MEDS: PANTOPRAZOLE 40 MG (PROTONIX) TAB PO SCH ×2 (09:15→20:41)
[2020-07-28] MEDS: AMIODARONE 200 MG (CORDARONE) TAB PO SCH (09:16)
[2020-07-28] MEDS: ASPIRIN E.C. 81 MG (ECOTRIN) TAB PO SCH (09:16)
[2020-07-28] MEDS ORDERED: ASPI-1238 PO (10:50)
[2020-07-28] MEDS ORDERED: PANT40TA52 PO (10:50)
[2020-07-28] MEDS ORDERED: MULT-1136 PO (10:50)
[2020-07-28] MEDS ORDERED: CARV3.122 PO (10:50)
[2020-07-28] MEDS ORDERED: ASCO500T7 PO (10:50)
[2020-07-28] MEDS ORDERED: SPIR25TA5 PO (10:50)
[2020-07-28] MEDS ORDERED: D5W IV SCH (13:15)
[2020-07-28] MEDS ORDERED: MILRINONE LACTATE IV SCH (13:15)
[2020-07-28] MEDS ORDERED: [UNRECOGNIZED DRUG - OTHER] IV SCH (13:15)
[2020-07-28 16:00] VITALS: BP 130/75
--- NOTE | 2020-07-28 16:16 | Progress Note ---
Subjective Subjective/Events-last exam Still having pain in right ankle area and now in left knee also. Denies other concerns. Afebrile. Focused Exam Lactate Level 07/26/20 09:43: Lactic Acid Level 0.98 Objective Exam Last Set of Vital Signs Vital Signs Date Time Temp Pulse Resp B/P (MAP) Pulse Ox O2 Delivery O2 Flow Rate FiO2 07/28/20 16:00 36.7 81 18 130/75 (93) 90 Room Air Capillary Refill : Less Than 3 Seconds I&O Intake and Output 07/28/20 00:00 Intake Total 2522.5 ml Output Total 1050 ml Balance 1472.5 ml Intake Oral 2200 ml IV Total 322.5 ml Output Urine Total 1050 ml # Voids 3 General: Alert, No Acute Distress Lungs: Clear to Auscultation, Normal Air Movement Heart: Regular Rate, No Murmurs Neuro: Normal Speech Psych/Mental Status: Mood NL Results/Procedures Lab Laboratory Tests 07/28/20 05:25: White Blood Count 9.6, Red Blood Count 3.98L, Hemoglobin 12.8L, Hematocrit 39L, Mean Corpuscular Volume 99, Mean Corpuscular Hemoglobin 32, Mean Corpuscular Hemoglobin Concent 33, Red Cell Distribution Width 14.3, Platelet Count 179, Mean Platelet Volume 8.6L, Immature Granulocyte % (Auto) 1, Neutrophils (%) (Auto) 75, Lymphocytes (%) (Auto) 9L, Monocytes (%) (Auto) 15H, Eosinophils (%) (Auto) 0, Basophils (%) (Auto) 1, Neutrophils # (Auto) 7.2, Lymphocytes # (Auto) 0.9L, Monocytes # (Auto) 1.4H, Eosinophils # (Auto) 0.0, Basophils # (Auto) 0.1, Immature Granulocyte # (Auto) 0.1, Sodium Level 134L, Potassium Level 4.0, Chloride Level 100, Carbon Dioxide Level 22, Anion Gap 12, Blood Urea Nitrogen 21H, Creatinine 1.69H, Estimat Glomerular Filtration Rate 50, BUN/Creatinine Ratio 12, Glucose Level 120H, Calcium Level 9.1 Microbiology 07/26/20 Blood Culture - Preliminary, Resulted Staphylococcus aureus Assessment/Plan Assessment/Plan (1) CHF (congestive heart failure) Status: Chronic Assessment & Plan: On continuous milrinone infusion per [facility], he has his pump with him and will continue current dosing, no signs of decompensation. Qualifiers: Qualified Codes: I50.22 - Chronic systolic (congestive) heart failure (2) Left arm cellulitis Status: Acute Assessment & Plan: Ceftriaxone and vancomycin 07/27 change ceftriaxone to cefazolin based on 07/23 culture 07/28 d/c vanc with MSSA on blood cultures (3) Positive blood culture Status: Acute Assessment & Plan: Suspected staph aureus from 07/23 culture, final still pending. Does not meet sepsis criteria- has elevated WBC but no other SIRS criteria. 07/27- repeat cultures from 07/26 positive for staph aureus in all bottles, awaiting MRSA prelim, suspect will be MSSA as culture from 07/23 is MSSA, contin ue vancomycin, change ceftriaxone to cefazolin. Repeat blood cultures today, echo in the morning for vegetation eval. 07/28- discussed with [facility] and they recommended treating to negative culture and then replace port, if unable to get negative cultures by 72 hours, will need to readdress port question. TTE without obvious abnormality, consult Cardiology for MARISSA given ICD in place. (4) CKD (chronic kidney disease) Status: Chronic Assessment & Plan: At baseline. Qualifiers: Qualified Codes: N18.31 - Chronic kidney disease, stage 3a (5) Borderline diabetes mellitus Status: Chronic Assessment & Plan: Continue home Jardiance (6) Thrombosis Status: Acute Assessment & Plan: Non-occlusive thrombosis associated with left PICC diagnosed on 07/23, however he has had worsening of symptoms, will start enoxaparin and repeat US when available. 07/28 US with more than one nearly occlusive thrombus, will continue anticoagul ation, change from enoxaparin to rivaroxaban (7) Ischemic cardiomyopathy with implantable cardioverter-defibrillator (ICD) Status: Chronic (8) Hyponatremia Status: Acute Assessment & Plan: Likely secondary to chronic fluid overload, monitor. (9) Acute right ankle pain Status: Acute Assessment & Plan: Given exam not consistent with gout and known bacteremia, will obtain x-ray initially and if unrevealing, consider advanced imaging 07/28 xrays unremarkable, possibly gout related, but would prefer to avoid steroids if possible, will continue to monitor (10) DVT prophylaxis Status: Acute Assessment & Plan: Rivaroxaban ERASTO KAPLAN MD Jul 28, 2020 16:16
--- NOTE | 2020-07-28 16:44 | Consultation-Cardiology ---
HPI-Cardiology Cardiology Consultation Date of Consultation 07/28/20 Date of Admission Time Seen by Provider: 16:40 Indication: Sepsis HPI 65-year-old gentleman with history of congestive heart failure, patient had a PICC line placed in June at , it appeared that it was clotted, patient was admitted to the hospital for increasing swelling and erythema in his arm, denied any fever or chills. The PICC line was removed, blood culture grew staph aureus. He denied any fever or chills. Having occasional feeling tremor. No syncope, has a permanent pacemaker Home Medications & Allergies Allergies: Coded Allergies: No Allergy Information Available (Unverified , 02/28/17) Home Medication List Reviewed: Yes LSO-[id number]-Qgdxqk Hx Patient Social History Recreational Drug Use: No Smoking Status: Former Smoker 2nd Hand Smoke Exposure: Yes Recent Hopitalizations: No Have you traveled recently?: No Alcohol Use?: No Substance type: Marijuana (history of THC use, last use June 03, also reports history of positive cocaine screen but did not use intentionally) Past Medical History Discussed below Family Medical History Significant Family History: Heart Disease (mother), Cancer (uncle with pancreatic cancer), Lung Disease (sister with sarcoidosis) Family Medical Hx Noncontributory Family History: Patient reports no known family medical history. Review of Systems-General Review of Systems Constitutional: see HPI, chills; No fever, No weight loss EENTM: see HPI; No throat pain Respiratory: see HPI; No cough; dyspnea on exertion; No hemoptysis, No orthopnea, No phlegm, No short of breath, No stridor, No wheezing, No other Cardiovascular: no symptoms reported, see HPI; No chest pain; edema; No Hx of Intervention, No palpitations, No syncope, No vascular heart diseas, No other Gastrointestinal: see HPI; No abdominal pain, No constipation, No diarrhea, No melena, No nausea, No vomiting Genitourinary: see HPI; No decreased output, No dysuria, No hematuria Musculoskeletal: see HPI; No joint pain Skin: see HPI; No rash Psychiatric/Neurological: See HPI; Denies Numbness; Weakness (chronic) All Other Systems Reviewed Negative Unless Noted: Yes Reviewed Test Results Reviewed Test Results Lab Laboratory Tests Test 07/28/20 05:25 Range/Units White Blood Count 9.6 4.3-11.0 10^3/uL Red Blood Count 3.98 L 4.30-5.52 10^6/uL Hemoglobin 12.8 L 13.3-17.7 g/dL Hematocrit 39 L 40-54 % Mean Corpuscular Volume 99 80-99 fL Mean Corpuscular Hemoglobin 32 25-34 pg Mean Corpuscular Hemoglobin Concent 33 32-36 g/dL Red Cell Distribution Width 14.3 10.0-14.5 % Platelet Count 179 130-400 10^3/uL Mean Platelet Volume 8.6 L 9.0-12.2 fL Immature Granulocyte % (Auto) 1 % Neutrophils (%) (Auto) 75 42-75 % Lymphocytes (%) (Auto) 9 L 12-44 % Monocytes (%) (Auto) 15 H 0-12 % Eosinophils (%) (Auto) 0 0-10 % Basophils (%) (Auto) 1 0-10 % Neutrophils # (Auto) 7.2 1.8-7.8 10^3/uL Lymphocytes # (Auto) 0.9 L 1.0-4.0 10^3/uL Monocytes # (Auto) 1.4 H 0.0-1.0 10^3/uL Eosinophils # (Auto) 0.0 0.0-0.3 10^3/uL Basophils # (Auto) 0.1 0.0-0.1 10^3/uL Immature Granulocyte # (Auto) 0.1 0.0-0.1 10^3/uL Sodium Level 134 L 135-145 MMOL/L Potassium Level 4.0 3.6-5.0 MMOL/L Chloride Level 100 98-107 MMOL/L Carbon Dioxide Level 22 21-32 MMOL/L Anion Gap 12 5-14 MMOL/L Blood Urea Nitrogen 21 H 7-18 MG/DL Creatinine 1.69 H 0.60-1.30 MG/DL Estimat Glomerular Filtration Rate 50 BUN/Creatinine Ratio 12 Glucose Level 120 H 70-105 MG/DL Calcium Level 9.1 8.5-10.1 MG/DL Physical Exam Physical Exam Vital Signs Vital Signs - First Documented 07/26/20 07/26/20 09:15 13:30 Temp 36.6 Pulse 75 Resp 18 B/P (MAP) 132/87 (102) Pulse Ox 95 O2 Delivery Room Air Capillary Refill : Less Than 3 Seconds Height, Weight, BMI Height: '" Weight: lbs. oz. kg; 26.81 BMI Method: General Appearance: No Apparent Distress, WD/WN HEENT: PERRL/EOMI, Pharynx Normal Neck: Non Tender, Supple Respiratory: Lungs Clear, Normal Breath Sounds Cardiovascular: Regular Rate, Rhythm, Systolic Murmur Gastrointestinal: Non Tender, Soft Extremity: No Calf Tenderness, Inflammation (Left upper arm near site of previous line and extends up to the axilla. This is warm to touch.) Neurologic/Psychiatric: Alert, Oriented x3 A/P-Cardiology Admission Diagnosis Bacteremia Congestive heart failure Coronary artery disease Chronic kidney disease Assessment/Plan Staph aureus bacteremia, patient had history of pacemaker with severe cardiomyopathy. Recommend MARISSA evaluation, patient is following with Dr. Luciano, I will place him n.p.o. and scheduled for the procedure for tomorrow morning. Congestive heart failure, dilated ischemic cardiomyopathy, chronic compensated left ventricular systolic dysfunction, following at , maintained on milrinone drip. Continue current medication Coronary artery disease, history of multiple stents in the past. Permanent pacemaker/ICD, had history of dual-chamber pacemaker, was following with Dr. Wayne Chronic kidney disease, continue to monitor renal function ANAHY REBOLLEDO MD Jul 28, 2020 16:44
[2020-07-28] MEDS: RIVAROXABAN 15 MG TABLET (XARELTO) PO SCH (18:59)
[2020-07-29] VITALS (16 sets, daily range): BP systolic 71–123; BP diastolic 49–79
[2020-07-29] MEDS: ceFAZolin 2 GM IV Premixed 50 ML IV SCH ×3 (04:04→20:34)
[2020-07-29 05:46] LABS: BASOPHILS # (AUTO) 0.1 10^3/uL (0.0-0.1); BASOPHILS % (AUTO) 0 % (0-10); EOSINOPHILS # (AUTO) 0.2 10^3/uL (0.0-0.3); EOSINOPHILS % (AUTO) 2 % (0-10); HEMATOCRIT 39 % (40-54); LYMPHOCYTES # (AUTO) 1.2 10^3/uL (1.0-4.0); LYMPHOCYTES % (AUTO) 10 % (12-44); MEAN CORPUSCULAR HEMOGLOBIN 32 pg (25-34); MEAN CORPUSCULAR HGB CONC 33 g/dL (32-36); MEAN CORPUSCULAR VOLUME 98 fL (80-99); MEAN PLATELET VOLUME 9.4 fL (9.0-12.2); MONOCYTES % (AUTO) 17 % (0-12); NEUTROPHILS # (AUTO) 8.4 10^3/uL (1.8-7.8); NEUTROPHILS % (AUTO) 71 % (42-75); PLATELET COUNT 219 10^3/uL (130-400); WHITE BLOOD COUNT 11.9 10^3/uL (4.3-11.0)
[2020-07-29 06:03] LABS: CALCIUM 9.5 MG/DL (8.5-10.1); CREATININE SERUM 1.58 MG/DL (0.60-1.30); POTASSIUM 4.8 MMOL/L (3.6-5.0)
--- NOTE | 2020-07-29 08:28 | Progress Note - Cardiology ---
Cardiology SOAP Progress Note Objective: I&O/Vital Signs 07/29/20 07/29/20 07/29/20 07/29/20 00:26 04:23 07:30 08:03 Temp 36.8 36.8 36.8 Pulse 87 89 86 Resp 18 18 18 B/P (MAP) 110/68 (82) 105/69 (81) 108/67 (81) Pulse Ox 95 91 91 94 O2 Delivery Room Air Room Air Nasal Cannula Room Air O2 Flow Rate 2.00 07/29/20 07/29/20 07/29/20 07/29/20 10:27 10:27 10:33 10:37 Pulse 82 83 81 Resp 16 16 16 B/P (MAP) 92/72 (79) 90/75 (80) 75/52 (60) Pulse Ox 94 94 91 93 O2 Delivery OxyMask OxyMask OxyMask OxyMask O2 Flow Rate 8.00 8.00 07/29/20 07/29/20 07/29/20 07/29/20 10:42 10:48 10:53 10:57 Pulse 80 80 80 77 Resp 16 16 16 16 B/P (MAP) 71/49 (56) 87/64 (72) 92/65 (74) 95/70 (78) Pulse Ox 93 92 91 93 O2 Delivery OxyMask OxyMask OxyMask OxyMask O2 Flow Rate 8.00 6.00 6.00 07/29/20 07/29/20 11:09 11:23 Pulse 79 81 Resp 16 16 B/P (MAP) 111/67 (82) 117/76 (90) Pulse Ox 91 90 O2 Delivery OxyMask Nasal Cannula O2 Flow Rate 6.00 4.00 07/28/20 23:59 Intake Total 1720 ml Balance 1720 ml Constitutional: well-developed, well-nourished Respiratory: No accessory muscle use, No respiratory distress; lungs clear to auscultation Cardiovascular: No JVD; S1 and S2, systolic murmur Gastrointestional: No tender; soft, round Extremities: no lower extremity edema bilateral Neurologic/Psychiatric: grossly intact (moves all extremities) Skin: other (warmth to upper left arm) Results/Procedures: Labs Laboratory Tests 07/29/20 05:22: White Blood Count 11.9H, Red Blood Count 4.02L, Hemoglobin 13.0L, Hematocrit 39L , Mean Corpuscular Volume 98, Mean Corpuscular Hemoglobin 32, Mean Corpuscular Hemoglobin Concent 33, Red Cell Distribution Width 14.4, Platelet Count 219, Mean Platelet Volume 9.4, Immature Granulocyte % (Auto) 1, Neutrophils (%) (Auto) 71, Lymphocytes (%) (Auto) 10L, Monocytes (%) (Auto) 17H, Eosinophils (%) (Auto) 2, Basophils (%) (Auto) 0, Neutrophils # (Auto) 8.4H, Lymphocytes # (Auto) 1.2, Monocytes # (Auto) 2.0H, Eosinophils # (Auto) 0.2, Basophils # (Auto) 0.1, Immature Granulocyte # (Auto) 0.1, Sodium Level 129L, Potassium Level 4.8, Chloride Level 98, Carbon Dioxide Level 21, Anion Gap 10, Blood Urea Nitrogen 20H, Creatinine 1.58H, Estimat Glomerular Filtration Rate 54, BUN/Creatinine Ratio 13, Glucose Level 111H, Calcium Level 9.5 Microbiology 07/27/20 Blood Culture - Preliminary, Resulted No growth Procedures NAME: LIUDMILA LUNDBERG [facility] REC#: [id number] PT STATUS: ADM IN : 1955 PHYSICIAN: ERASTO KAPLAN MD ADMIT DATE: 07/26/20 Signed Date of Exam:07/28/20 US VENOUS UPPER EXT LT PROCEDURE: US venous upper extremity left. TECHNIQUE: Multiple realtime grayscale images were obtained of left upper extremity in various projections. Additional spectral analysis and color Doppler duplex images were also obtained. INDICATION: Left arm pain. A left internal jugular vein is patent. There is partial thrombus within the proximal left subclavian vein. Axillary vein is patent. There is thrombus identified in the upper and mid aspect of the brachial vein which is nearly occlusive. There is also nearly occlusive thrombus within the basilic vein of the upper arm. Radial ulnar veins as well as cephalic veins are patent. No fluid collections are seen. IMPRESSION: Left upper extremity DVT, as described. Dictated by: Dictated on workstation # [id number] Dict: 07/28/20 0901 Trans: 07/28/20 1610 CV [id number] Interpreted by: BELLA THURSTON MD Electronically signed by: BELLA THURSTON MD 07/28/20 1301 A/P: Assessment: Sepsis - carlitos smith, suspected site of previous PICC line which was placed at [facility] for continuous milrinone infusion and pulled on July 25 d/t line clotting off, RACW port placed on the same date at [facility] - management per medical services Left upper extremity DVT (see details above) - Xarelto Ch systolic CHF - continuous milrinone infusion - management per [facility], Dr. Hughes Ischemic dilated cardiomyopathy - MARISSA on May 30 at [facility] showed mitral regurg with LVEF 10% with severely dilated ventricle, tricuspid regurg, mod RV dysfunction - awaiting LVAD placement at [facility] - scheduled to under-go re-eval in August 2020 RHC at [facility] on May 30, [address] Hughes showed RA pressure of 12, PA pressure with mean of 49, wedge pressure 18, diastolic pressure gradient of 22 mmHg with pulmonary vascular resistance of 8, cardiac output severely low. CAD: - Has h/o 2 cor stents in 2008 at [facility] by Dr Beck: PTCA and stenting of mid LCX, cutting balloon angioplasty of 3rd diag, stenting of mid and distal RCA - MPI of June 01, [address] Beck showed LVEF 29%. Global left ventricular hypokinesis. No prominent ischemia noted - CHC at [facility] on May 30, 2020 showed LAD with 40-50% stenosis; diagonal in stent restenosis of 50-60%; large intermediate ramus with ostial lesion of 50%; mid cx tith 50-70% in stent restenosis Found to be cocaine positive during hospitalization at [facility] in June [address] Hughes's note of 07-18-20 Dual chamber AICD in placed in August 05, [address] Lewis. S/P pulse gen change out June 15, [address] Beck d/t device reaching NIKO Severe MR. Echocardiogram of Dec 17, 2018 showed LVEF 10-15%. Severe diffuse hypokinesis. Severe MR. Trivial AoR. Severe TR. RVSP approx 51mmHg - Echocardiogram of Feb 15, 2020 showed LVEF 10-15%. LV size mod increased. Wall thickness is normal. Mod to severe diffuse hypokinesis. RV cavity size is increased. LA and RA mod dilated. Severe MR. Mod to severe TR. PASP approx 60 mmHG - Echocardiogram of 07-28-[address] Wall showed LVEF 25-30%. Severe MR. Mod TR. PASP 65-70mmHg H/o CVA (no residual symptoms) per pt report CKD 3-4 Quit smoking 2017 Plan: Complex management issue for reasons noted above Continue current medication regimen Tele Monitor lab closely Replace electrolytes as indicated We have reviewed the notes from Dr. Wall and recent note from [facility] by Dr. Hughes dated 07-18-20 TOÑA ENRIQUEZ Jul 29, 2020 08:28
[2020-07-29] MEDS: ISOSORBIDE DINITRATE 10 MG (ISORDIL) TABLET PO SCH ×3 (09:00→20:34)
[2020-07-29] MEDS ORDERED: fentaNYL INJ 100 MCG/2 ML AMP ONE (10:05)
[2020-07-29] MEDS ORDERED: MIDAZOLAM 5 MG/5 ML (VERSED) VIAL ONE (10:05)
[2020-07-29] MEDS ORDERED: NS IV 1000 ML 1,000 ML ONE (10:07)
[2020-07-29] MEDS ORDERED: LIDOCAINE 2% VISCOUS 15 ML UDC ONE (10:11)
[2020-07-29] MEDS ORDERED: NS IV 1000 ML 1,000 ML IV ONE (10:15)
[2020-07-29] MEDS ORDERED: proPOfol 200 MG/20 ML (DIPRIVAN) VIAL IV ONE (10:17)
[2020-07-29] MEDS ORDERED: MIDAZOLAM 2 MG/2 ML (VERSED) VIAL ONE (10:17)
[2020-07-29] MEDS ORDERED: MIDAZOLAM 5 MG/5 ML (VERSED) VIAL IV ONE (10:30)
[2020-07-29] MEDS ORDERED: fentaNYL INJ 100 MCG/2 ML AMP IV ONE (10:30)
[2020-07-29] MEDS ORDERED: LIDOCAINE 2% VISCOUS 15 ML UDC PO ONE (10:30)
[2020-07-29] MEDS ORDERED: MIDAZOLAM 2 MG/2 ML (VERSED) VIAL IVP ONE (10:30)
--- NOTE | 2020-07-29 11:29 | Progress Note - Cardiology ---
Cardiology SOAP Progress Note Subjective: Gen malaise and weakness Shortness of breath with activity No cp or palp or syncope No n/v/d L knee pain, previously diagnosed as gout Objective: I&O/Vital Signs 07/29/20 07/29/20 07/29/20 07/29/20 00:26 04:23 07:30 08:03 Temp 36.8 36.8 36.8 Pulse 87 89 86 Resp 18 18 18 B/P (MAP) 110/68 (82) 105/69 (81) 108/67 (81) Pulse Ox 95 91 91 94 O2 Delivery Room Air Room Air Nasal Cannula Room Air O2 Flow Rate 2.00 07/29/20 07/29/20 07/29/20 07/29/20 10:27 10:27 10:33 10:37 Pulse 82 83 81 Resp 16 16 16 B/P (MAP) 92/72 (79) 90/75 (80) 75/52 (60) Pulse Ox 94 94 91 93 O2 Delivery OxyMask OxyMask OxyMask OxyMask O2 Flow Rate 8.00 8.00 07/29/20 07/29/20 07/29/20 07/29/20 10:42 10:48 10:53 10:57 Pulse 80 80 80 77 Resp 16 16 16 16 B/P (MAP) 71/49 (56) 87/64 (72) 92/65 (74) 95/70 (78) Pulse Ox 93 92 91 93 O2 Delivery OxyMask OxyMask OxyMask OxyMask O2 Flow Rate 8.00 6.00 6.00 07/29/20 11:09 Pulse 79 Resp 16 B/P (MAP) 111/67 (82) Pulse Ox 91 O2 Delivery OxyMask O2 Flow Rate 6.00 07/29/20 00:00 Intake Total 1720 ml Balance 1720 ml Constitutional: AAO x 3, well-developed, well-nourished Respiratory: No accessory muscle use, No respiratory distress; lungs clear to auscultation Cardiovascular: No JVD; S1 and S2, systolic murmur Gastrointestional: No tender; soft, round Extremities: no lower extremity edema bilateral Neurologic/Psychiatric: oriented x 3, other (moves all imbs equally) Skin: other (warmth to upper left arm and L knee) Results/Procedures: Labs Laboratory Tests 07/29/20 05:22: White Blood Count 11.9H, Red Blood Count 4.02L, Hemoglobin 13.0L, Hematocrit 39L , Mean Corpuscular Volume 98, Mean Corpuscular Hemoglobin 32, Mean Corpuscular Hemoglobin Concent 33, Red Cell Distribution Width 14.4, Platelet Count 219, Mean Platelet Volume 9.4, Immature Granulocyte % (Auto) 1, Neutrophils (%) (Auto) 71, Lymphocytes (%) (Auto) 10L, Monocytes (%) (Auto) 17H, Eosinophils (%) (Auto) 2, Basophils (%) (Auto) 0, Neutrophils # (Auto) 8.4H, Lymphocytes # (Auto) 1.2, Monocytes # (Auto) 2.0H, Eosinophils # (Auto) 0.2, Basophils # (Auto) 0.1, Immature Granulocyte # (Auto) 0.1, Sodium Level 129L, Potassium Leve l 4.8, Chloride Level 98, Carbon Dioxide Level 21, Anion Gap 10, Blood Urea Nitrogen 20H, Creatinine 1.58H, Estimat Glomerular Filtration Rate 54, BUN/Creatinine Ratio 13, Glucose Level 111H, Calcium Level 9.5 Microbiology 07/27/20 Blood Culture - Preliminary, Resulted No growth A/P: Assessment: Sepsis - staph aureas - suspected site of previous PICC line which was placed at [facility] for continuous milrinone infusion and pulled on July 25 d/t line clotting off, RACW port placed on the same date at [facility] - management per Medical services - MARISSA on 07/29/20: No evidence of endocarditis, LVEF 15-20%, mod MR, mod to severe tricuspid regurg, PASP approx 45 mmHg Left upper extremity DVT (see details above) - Xarelto Ch systolic CHF - [facility]one [facility] - MARISSA on May 30 at [facility] showed mitral regurg with LVEF 10% with severely dilated ventricle, tricuspid regurg, mod RV dysfunction - awaiting LVAD placement at [facility] - scheduled to under-go re-eval in August 2020 - - MARISSA on 07/29/20: No evidence of endocarditis, LVEF 15-20%, mod MR, mod to severe tricuspid regurg, PASP approx 45 mmHg RHC at [facility] on May 30, [address] Hughes showed RA pressure of 12, PA pressure with mean of 49, wedge pressure 18, diastolic pressure gradient of 22 mmHg with pulmonary vascular resistance of 8, cardiac output severely low. CAD: - Has h/o 2 cor stents in 2008 at [facility] by Dr Beck: PTCA and stenting of mid LCX, cutting balloon angioplasty of 3rd diag, stenting of mid and distal RCA - MPI of June 01, [address] Beck showed LVEF 29%. Global left ventricular hypokinesis. No prominent ischemia noted - CHC at [facility] on May 30, 2020 showed LAD with 40-50% stenosis; diagonal in stent restenosis of 50-60%; large intermediate ramus with ostial lesion of 50%; mid cx tith 50-70% in stent restenosis Found to be cocaine positive during hospitalization at [facility] in June [address] Hughes's note of 07-18-20 Dual chamber AICD in placed in August 05, [address] Lewis. S/P pulse gen change out June 15, [address] Beck d/t device reaching NIKO Severe MR. Echocardiogram of Dec 17, 2018 showed LVEF 10-15%. Severe diffuse hypokinesis. Severe MR. Trivial AoR. Severe TR. RVSP approx 51mmHg - Echocardiogram of Feb 15, 2020 showed LVEF 10-15%. LV size mod increased. Wall thickness is normal. Mod to severe diffuse hypokinesis. RV cavity size is increased. LA and RA mod dilated. Severe MR. Mod to severe TR. PASP approx 60 mmHG - Echocardiogram of 07-28-[address] Wall showed LVEF 25-30%. Severe MR. Mod TR. PASP 65-70mmHg - MARISSA on 07/29/20: No evidence of endocarditis, LVEF 15-20%, mod MR, mod to severe tricuspid regurg, PASP approx 45 mmHg H/o CVA (no residual symptoms) per pt report CKD 3-4 Quit smoking 2017 Plan: Complex management issue for reasons noted above Continue milrinone Continue anticoag Treat septicemia (Med svce) Tele Monitor lab closely Replace electrolytes as indicated We have reviewed the notes from Dr. Wall and recent note from [facility] by Dr. Hughes dated 07-18-20 RONNI OBREGON MD FACP [facility]S Jul 29, 2020 11:29
[2020-07-29] MEDS: FUROSEMIDE 20 MG (LASIX) TAB PO SCH (12:26)
[2020-07-29] MEDS: predniSONE 20 MG TAB PO SCH (12:26)
[2020-07-29] MEDS: PANTOPRAZOLE 40 MG (PROTONIX) TAB PO SCH ×2 (12:26→20:34)
[2020-07-29] MEDS: SERTRALINE 50 MG (ZOLOFT) TABLET PO SCH (12:26)
[2020-07-29] MEDS: ASPIRIN E.C. 81 MG (ECOTRIN) TAB PO SCH (12:27)
[2020-07-29] MEDS: SPIRONOLACTONE 25 MG (ALDACTONE) TAB PO SCH (12:27)
[2020-07-29] MEDS: AMIODARONE 200 MG (CORDARONE) TAB PO SCH (12:28)
[2020-07-29] MEDS: RIVAROXABAN 15 MG TABLET (XARELTO) PO SCH ×2 (12:30→18:25)
--- NOTE | 2020-07-29 12:55 | Anesthesia-General Post-Op ---
MAC Patient Condition Mental Status/LOC: Same as Preop Cardiovascular: Satisfactory Nausea/Vomiting: Absent Respiratory: Satisfactory Pain: Controlled Complications: Absent Post Op Complications Complications None Follow Up Care/Instructions Patient Instructions None needed. Anesthesiology Discharge Order Discharge Order Patient is doing well, no complaints, stable vital signs, no apparent adverse anesthesia problems. No complications reported per nursing. GERARDO FRIEDMAN CRNA Jul 29, 2020 12:55
--- NOTE | 2020-07-29 15:52 | Progress Note ---
Subjective Subjective/Events-last exam Pt having worsening pain in left knee, right ankle improved. His nurse notes he was not able to walk due to pain today. Objective Exam Last Set of Vital Signs Vital Signs Date Time Temp Pulse Resp B/P (MAP) Pulse Ox O2 Delivery O2 Flow Rate FiO2 07/29/20 12:53 78 07/29/20 12:07 35.8 20 123/79 (94) 94 Nasal Cannula 3.00 Capillary Refill : Less Than 3 Seconds I&O Intake and Output 07/29/20 00:00 Intake Total 2020 ml Output Total 600 ml Balance 1420 ml Intake Oral 2020 ml Output Urine Total 600 ml # Voids 6 # Bowel Movements 1 General: Alert, No Acute Distress Psych/Mental Status: Mood NL Results/Procedures Lab Laboratory Tests 07/29/20 05:22: White Blood Count 11.9H, Red Blood Count 4.02L, Hemoglobin 13.0L, Hematocrit 39L , Mean Corpuscular Volume 98, Mean Corpuscular Hemoglobin 32, Mean Corpuscular Hemoglobin Concent 33, Red Cell Distribution Width 14.4, Platelet Count 219, Mean Platelet Volume 9.4, Immature Granulocyte % (Auto) 1, Neutrophils (%) (Auto) 71, Lymphocytes (%) (Auto) 10L, Monocytes (%) (Auto) 17H, Eosinophils (%) (Auto) 2, Basophils (%) (Auto) 0, Neutrophils # (Auto) 8.4H, Lymphocytes # (Auto) 1.2, Monocytes # (Auto) 2.0H, Eosinophils # (Auto) 0.2, Basophils # (Auto) 0.1, Immature Granulocyte # (Auto) 0.1, Sodium Level 129L, Potassium Level 4.8, Chloride Level 98, Carbon Dioxide Level 21, Anion Gap 10, Blood Urea Nitrogen 20H, Creatinine 1.58H, Estimat Glomerular Filtration Rate 54, BUN/Creatinine Ratio 13, Glucose Level 111H, Calcium Level 9.5 Microbiology 07/28/20 Blood Culture - Preliminary, Resulted No growth Assessment/Plan Assessment/Plan (1) CHF (congestive heart failure) Status: Chronic Assessment & Plan: On continuous milrinone infusion per [facility], he has his pump with him and will continue current dosing, no signs of decompensation. Qualifiers: Qualified Codes: I50.22 - Chronic systolic (congestive) heart failure (2) Left arm cellulitis Status: Acute Assessment & Plan: Ceftriaxone and vancomycin 07/27 change ceftriaxone to cefazolin based on 07/23 culture 07/28 d/c vanc with MSSA on blood cultures (3) Positive blood culture Status: Acute Assessment & Plan: Suspected staph aureus from 07/23 culture, final still pending. Does not meet sepsis criteria- has elevated WBC but no other SIRS criteria. 07/27- repeat cultures from 07/26 positive for staph aureus in all bottles, awaiting MRSA prelim, suspect will be MSSA as culture from 07/23 is MSSA, continue vancomycin, change ceftriaxone to cefazolin. Repeat blood cultures today, echo in the morning for vegetation eval. 07/28- discussed with [facility] and they recommended treating to negative culture and then replace port, if unable to get negative cultures by 72 hours, will need to readdress port question. TTE without obvious abnormality, consult Cardiology for MARISSA given ICD in place. 07/29- MARISSA today, blood cultures from 07/27 negative so far (4) CKD (chronic kidney disease) Status: Chronic Assessment & Plan: At baseline. Qualifiers: Qualified Codes: N18.31 - Chronic kidney disease, stage 3a (5) Borderline diabetes mellitus Status: Chronic Assessment & Plan: Continue home Jardiance (6) Thrombosis Status: Acute Assessment & Plan: Non-occlusive thrombosis associated with left PICC diagnosed on 07/23, however he has had worsening of symptoms, will start enoxaparin and repeat US when available. 07/28 US with more than one nearly occlusive thrombus, will continue anticoagulation, change from enoxaparin to rivaroxaban (7) Ischemic cardiomyopathy with implantable cardioverter-defibrillator (ICD) Status: Chronic (8) Hyponatremia Status: Acute Assessment & Plan: Likely secondary to chronic fluid overload, monitor. (9) Acute right ankle pain Status: Acute Assessment & Plan: Given exam not consistent with gout and known bacteremia, will obtain x-ray initially and if unrevealing, consider advanced imaging 07/28 xrays unremarkable, possibly gout related, but would prefer to avoid steroids if possible, will continue to monitor 07/29- worsening and with warmth in knee, can't use colchicine due to interaction with carvedilol and kidney function, will start prednisone due to severity causing difficulty ambulating (10) DVT prophylaxis Status: Acute Assessment & Plan: Rivaroxaban ERASTO KAPLAN MD Jul 29, 2020 15:52
[2020-07-29] MEDS ORDERED: NS IV 500 ML 500 ML ONE (20:29)
[2020-07-30 03:43] VITALS: BP 98/59
[2020-07-30] MEDS: ceFAZolin 2 GM IV Premixed 50 ML IV SCH ×3 (04:01→20:09)
[2020-07-30 05:03] LABS: BASOPHILS % (AUTO) 0 % (0-10); EOSINOPHILS % (AUTO) 0 % (0-10); HEMATOCRIT 37 % (40-54); HEMOGLOBIN 12.2 g/dL (13.3-17.7); LYMPHOCYTES # (AUTO) 0.7 10^3/uL (1.0-4.0); LYMPHOCYTES % (AUTO) 6 % (12-44); MEAN CORPUSCULAR HEMOGLOBIN 32 pg (25-34); MEAN CORPUSCULAR HGB CONC 33 g/dL (32-36); MEAN CORPUSCULAR VOLUME 97 fL (80-99); MEAN PLATELET VOLUME 8.9 fL (9.0-12.2); MONOCYTES # (AUTO) 1.7 10^3/uL (0.0-1.0); MONOCYTES % (AUTO) 14 % (0-12); NEUTROPHILS # (AUTO) 9.6 10^3/uL (1.8-7.8); NEUTROPHILS % (AUTO) 79 % (42-75); PLATELET COUNT 228 10^3/uL (130-400); WHITE BLOOD COUNT 12.1 10^3/uL (4.3-11.0)
[2020-07-30 05:19] LABS: CALCIUM 9.6 MG/DL (8.5-10.1); CREATININE SERUM 1.7 MG/DL (0.60-1.30); POTASSIUM 4.9 MMOL/L (3.6-5.0)
[2020-07-30] MEDS: RIVAROXABAN 15 MG TABLET (XARELTO) PO SCH (06:35)
[2020-07-30] MEDS: predniSONE 20 MG TAB PO SCH (06:35)
[2020-07-30 07:40] VITALS: BP 102/64
--- NOTE | 2020-07-30 09:24 | Progress Note - Cardiology ---
Cardiology SOAP Progress Note Subjective: Lying in bed C/O fatigue Reports left upper arm discomfort and swelling has improved No c/o CP or SOB or palpitations Objective: I&O/Vital Signs 08/01/20 08/01/20 08/01/20 08/01/20 00:17 01:00 03:55 07:00 Temp 36.4 36.5 Pulse 71 74 68 71 Resp 18 18 B/P (MAP) 101/61 (74) 111/73 (86) Pulse Ox 93 90 O2 Delivery Room Air Room Air 08/01/20 08:00 Temp 36.2 Pulse 70 Resp 20 B/P (MAP) 106/60 (75) Pulse Ox 92 O2 Delivery Nasal Cannula O2 Flow Rate 4.00 08/01/20 00:00 Intake Total 1150 ml Output Total 1100 ml Balance 50 ml Constitutional: AAO x 3, well-developed, well-nourished Respiratory: No accessory muscle use, No respiratory distress; lungs clear to auscultation Cardiovascular: No JVD; S1 and S2, systolic murmur Gastrointestional: No tender; soft, round Extremities: no lower extremity edema bilateral Neurologic/Psychiatric: oriented x 3, other (moves all imbs equally) Skin: other (warmth to upper left arm and L knee) Results/Procedures: Labs Laboratory Tests 08/01/20 04:40: White Blood Count 10.7, Red Blood Count 3.67L, Hemoglobin 11.7L, Hematocrit 35L, Mean Corpuscular Volume 95, Mean Corpuscular Hemoglobin 32, Mean Corpuscular Hemoglobin Concent 34, Red Cell Distribution Width 14.6H, Platelet Count 297, Mean Platelet Volume 9.0, Immature Granulocyte % (Auto) 1, Neutrophils (%) (Auto) 74, Lymphocytes (%) (Auto) 10L, Monocytes (%) (Auto) 15H, Eosinophils (%) (Auto) 0, Basophils (%) (Auto) 0, Neutrophils # (Auto) 7.9H, Lymphocytes # (Auto) 1.0, Monocytes # (Auto) 1.6H, Eosinophils # (Auto) 0.0, Basophils # (Auto) 0.0, Immature Granulocyte # (Auto) 0.1, Sodium Level 134L, Potassium L evel 4.3, Chloride Level 97L, Carbon Dioxide Level 22, Anion Gap 15H, Blood Urea Nitrogen 38H, Creatinine 1.66H, Estimat Glomerular Filtration Rate 51, BUN/Creatinine Ratio 23, Glucose Level 138H, Calcium Level 9.1 Microbiology 07/28/20 Blood Culture - Preliminary, Resulted No growth A/P: Assessment: Sepsis - carlitos smith - suspected site of previous PICC line which was placed at [facility] for continuous milrinone infusion and pulled on July 25 d/t line clotting off, RACW port placed on the same date at [facility] - management per Medical services - MARISSA on 07/29/20: No evidence of endocarditis, LVEF 15-20%, mod MR, mod to severe tricuspid regurg, PASP approx 45 mmHg Left upper extremity DVT (see details above) - Xarelto Ch systolic CHF - continuous milrinone infusion - management per [facility], Dr. Hughes Ischemic dilated cardiomyopathy - MARISSA on May 30 at [facility] showed mitral regurg with LVEF 10% with severely dilated ventricle, tricuspid regurg, mod RV dysfunction - awaiting LVAD placement at [facility] - scheduled to under-go re-eval in August 2020 - - MARISSA on 07/29/20: No evidence of endocarditis, LVEF 15-20%, mod MR, mod to severe tricuspid regurg, PASP approx 45 mmHg RHC at [facility] on May 30, [address] Hughes showed RA pressure of 12, PA pressure with mean of 49, wedge pressure 18, diastolic pressure gradient of 22 mmHg with pulmonary vascular resistance of 8, cardiac output severely low. CAD: - Has h/o 2 cor stents in 2008 at [facility] by Dr Beck: PTCA and stenting of mid LCX, cutting balloon angioplasty of 3rd diag, stenting of mid and distal RCA - MPI of June 01, [address] Beck showed LVEF 29%. Global left ventricular hypokinesis. No prominent ischemia noted - CHC at [facility] on May 30, 2020 showed LAD with 40-50% stenosis; diagonal in stent restenosis of 50-60%; large intermediate ramus with ostial lesion of 50%; mid cx tith 50-70% in stent restenosis Found to be cocaine positive during hospitalization at [facility] in June [address] Hughes's note of 07-18-20 Dual chamber AICD in placed in August 05, [address] Lewis. S/P pulse gen change out June 15, [address] Beck d/t device reaching NIKO Severe MR. Echocardiogram of Dec 17, 2018 showed LVEF 10-15%. Severe diffuse hypokinesis. Severe MR. Trivial AoR. Severe TR. RVSP approx 51mmHg - Echocardiogram of Feb 15, 2020 showed LVEF 10-15%. LV size mod increased. Wall thickness is normal. Mod to severe diffuse hypokinesis. RV cavity size is increased. LA and RA mod dilated. Severe MR. Mod to severe TR. PASP approx 60 mmHG - Echocardiogram of 07-28-[address] Wall showed LVEF 25-30%. Severe MR. Mod TR. PASP 65-70mmHg - MARISSA on 07/29/20: No evidence of endocarditis, LVEF 15-20%, mod MR, mod to severe tricuspid regurg, PASP approx 45 mmHg H/o CVA (no residual symptoms) per pt report CKD 3-4 Quit smoking 2017 Plan: Complex management issue for reasons noted above Continue milrinone Continue anticoag Treat septicemia (Med svce) Monitor lab closely Replace electrolytes as indicated TOÑA ENRIQUEZ Jul 30, 2020 09:24
[2020-07-30] MEDS: SPIRONOLACTONE 25 MG (ALDACTONE) TAB PO SCH (09:32)
[2020-07-30] MEDS: ISOSORBIDE DINITRATE 10 MG (ISORDIL) TABLET PO SCH ×3 (09:32→20:09)
[2020-07-30] MEDS: ASPIRIN E.C. 81 MG (ECOTRIN) TAB PO SCH (09:32)
[2020-07-30] MEDS: FUROSEMIDE 20 MG (LASIX) TAB PO SCH (09:32)
[2020-07-30] MEDS: PANTOPRAZOLE 40 MG (PROTONIX) TAB PO SCH ×2 (09:32→20:09)
[2020-07-30] MEDS: SERTRALINE 50 MG (ZOLOFT) TABLET PO SCH (09:33)
[2020-07-30] MEDS: AMIODARONE 200 MG (CORDARONE) TAB PO SCH (09:33)
[2020-07-30] MEDS ORDERED: CEFA2PIG IV ×2 (11:21→14:21)
--- NOTE | 2020-07-30 11:58 | Progress Note ---
Subjective Subjective/Events-last exam Knee is feeling better, still mildly swollen. Objective Exam Last Set of Vital Signs Vital Signs Date Time Temp Pulse Resp B/P (MAP) Pulse Ox O2 Delivery O2 Flow Rate FiO2 07/30/20 08:00 Room Air 07/30/20 08:00 70 07/30/20 07:40 35.6 18 102/64 (77) 91 07/29/20 19:34 3.00 Capillary Refill : Less Than 3 Seconds I&O Intake and Output 07/29/20 23:59 Intake Total 710 ml Output Total 1150 ml Balance -440 ml Intake Oral 710 ml Output Urine Total 1150 ml General: Alert, No Acute Distress Lungs: Clear to Auscultation, Normal Air Movement Heart: Regular Rate Extremities: Other (mild edema proximal to left knee, no knee ttp or erythema) Neuro: Normal Speech Results/Procedures Lab Laboratory Tests 07/30/20 04:50: White Blood Count 12.1H, Red Blood Count 3.86L, Hemoglobin 12.2L, Hematocrit 37L , Mean Corpuscular Volume 97, Mean Corpuscular Hemoglobin 32, Mean Corpuscular Hemoglobin Concent 33, Red Cell Distribution Width 13.9, Platelet Count 228, Mean Platelet Volume 8.9L, Immature Granulocyte % (Auto) 1, Neutrophils (%) (Auto) 79H, Lymphocytes (%) (Auto) 6L, Monocytes (%) (Auto) 14H, Eosinophils (%) (Auto) 0, Basophils (%) (Auto) 0, Neutrophils # (Auto) 9.6H, Lymphocytes # (Auto) 0.7L, Monocytes # (Auto) 1.7H, Eosinophils # (Auto) 0.0, Basophils # (Auto) 0.0, Immature Granulocyte # (Auto) 0.1, Sodium Level 128L, Potassium Level 4.9, Chloride Level 97L, Carbon Dioxide Level 21, Anion Gap 10, Blood Urea Nitrogen 26H, Creatinine 1.70H, Estimat Glomerular Filtration Rate 50, BUN/Creatinine Ratio 15, Glucose Level 147H, Calcium Level 9.6 Microbiology 07/28/20 Blood Culture - Preliminary, Resulted No growth Assessment/Plan Assessment/Plan (1) CHF (congestive heart failure) Status: Chronic Assessment & Plan: On continuous milrinone infusion per [facility], he has his pump with him and will continue current dosing, no signs of decompensation. Qualifiers: Qualified Codes: I50.22 - Chronic systolic (congestive) heart failure (2) Left arm cellulitis Status: Acute Assessment & Plan: Ceftriaxone and vancomycin 07/27 change ceftriaxone to cefazolin based on 07/23 culture 07/28 d/c vanc with MSSA on blood cultures (3) Positive blood culture Status: Acute Assessment & Plan: Suspected staph aureus from 07/23 culture, final still pe nding. Does not meet sepsis criteria- has elevated WBC but no other SIRS criteria. 07/27- repeat cultures from 07/26 positive for staph aureus in all bottles, awaiting MRSA prelim, suspect will be MSSA as culture from 07/23 is MSSA, continue vancomycin, change ceftriaxone to cefazolin. Repeat blood cultures today, echo in the morning for vegetation eval. 07/28- discussed with [facility]I HALL and they recommended treating to negative culture and then replace port, if unable to get negative cultures by 72 hours, will need to readdress port question. TTE without obvious abnormality, consult Cardiology for MARISSA given ICD in place. 07/29- MARISSA today, blood cultures from 07/27 negative so far 07/30- MARISSA negative for vegetations, 07/27 blood cultures still negative, will ne ed port replaced, working on clarifying if this can be done locally (4) CKD (chronic kidney disease) Status: Chronic Assessment & Plan: At baseline. Qualifiers: Qualified Codes: N18.31 - Chronic kidney disease, stage 3a (5) Borderline diabetes mellitus Status: Chronic Assessment & Plan: Continue home Jardiance (6) Thrombosis Status: Acute Assessment & Plan: Non-occlusive thrombosis associated with left PICC diagnosed on 07/23, however he has had worsening of symptoms, will start enoxaparin and repeat US when available. 07/28 US with more than one nearly occlusive thrombus, will continue anticoagulation, change from enoxaparin to rivaroxaban (7) Ischemic cardiomyopathy with implantable cardioverter-defibrillator (ICD) Status: Chronic (8) Hyponatremia Status: Acute Assessment & Plan: Likely secondary to chronic fluid overload, monitor. (9) Acute right ankle pain Status: Acute Assessment & Plan: Given exam not consistent with gout and known bacteremia, will obtain x-ray initially and if unrevealing, consider advanced imaging 07/28 xrays unremarkable, possibly gout related, but would prefer to avoid steroids if possible, will continue to monitor 07/29- worsening and with warmth in knee, can't use colchicine due to interaction with carvedilol and kidney function, will start prednisone due to severity causing difficulty ambulating 07/30 improving on prednisone (10) DVT prophylaxis Status: Acute Assessment & Plan: Rivaroxaban ERASTO KAPLAN MD Jul 30, 2020 11:58
[2020-07-30 12:02] VITALS: BP 103/68
[2020-07-30] MEDS: BETAMETHASONE DIPRO (AUGMENTED) 0.05% OINT 15 GM TOP SCH ×2 (12:22→20:09)
--- NOTE | 2020-07-30 12:41 | Progress Note - Cardiology ---
Cardiology SOAP Progress Note Subjective: No cp or palp or syncope Shortness of breath with mild exertion (chronic) Gen malaise No n/v/d Objective: I&O/Vital Signs 07/30/20 07/30/20 07/30/20 07/30/20 01:00 03:43 07:40 08:00 Temp 36.4 35.6 Pulse 75 70 70 70 Resp 20 18 B/P (MAP) 98/59 (72) 102/64 (77) Pulse Ox 91 91 O2 Delivery Room Air Room Air 07/30/20 07/30/20 08:00 12:02 Temp 35.6 Pulse 76 Resp 18 B/P (MAP) 103/68 (80) Pulse Ox 92 O2 Delivery Room Air Room Air 07/29/20 23:59 Intake Total 610 ml Output Total 950 ml Balance -340 ml Constitutional: AAO x 3, well-developed, well-nourished Respiratory: No accessory muscle use, No respiratory distress; lungs clear to auscultation Cardiovascular: No JVD; S1 and S2, systolic murmur Gastrointestional: No tender; soft, round Extremities: no lower extremity edema bilateral Neurologic/Psychiatric: oriented x 3, other (moves all imbs equally) Skin: other (warmth to upper left arm and L knee) Results/Procedures: Labs Laboratory Tests 07/30/20 04:50: White Blood Count 12.1H, Red Blood Count 3.86L, Hemoglobin 12.2L, Hematocrit 37L , Mean Corpuscular Volume 97, Mean Corpuscular Hemoglobin 32, Mean Corpuscular Hemoglobin Concent 33, Red Cell Distribution Width 13.9, Platelet Count 228, Mean Platelet Volume 8.9L, Immature Granulocyte % (Auto) 1, Neutrophils (%) (Auto) 79H, Lymphocytes (%) (Auto) 6L, Monocytes (%) (Auto) 14H, Eosinophils (%) (Auto) 0, Basophils (%) (Auto) 0, Neutrophils # (Auto) 9.6H, Lymphocytes # (Auto) 0.7L, Monocytes # (Auto) 1.7H, Eosinophils # (Auto) 0.0, Basophils # (Auto) 0.0, Immature Granulocyte # (Auto) 0.1, Sodium Level 128L, Potassium Level 4.9, Chloride Level 97L, Carbon Dioxide Level 21, Anion Gap 10, Blood Urea Nitrogen 26H, Creatinine 1.70H, Estimat Glomerular Filtration Rate 50, BUN/Creatinine Ratio 15, Glucose Level 147H, Calcium Level 9.6 Microbiology 07/28/20 Blood Culture - Preliminary, Resulted No growth Laboratory Tests 07/29/20 05:22 07/30/20 04:50 A/P: Assessment: Sepsis - carlitos smith - suspected site of previous PICC line which was placed at [facility] for continuous milrinone infusion and pulled on July 25 d/t line clotting off, RACW port placed on the same date at [facility] - management per Medical services - MARISSA on 07/29/20: No evidence of endocarditis, LVEF 15-20%, mod MR, mod to severe tricuspid regurg, PASP approx 45 mmHg Left upper extremity DVT (see details above) - Xarelto Ch systolic CHF - continuous milrinone infusion - management per [facility], Dr. Hughes Ischemic dilated cardiomyopathy - MARISSA on May 30 at [facility] showed mitral regurg with LVEF 10% with severely dilated ventricle, tricuspid regurg, mod RV dysfunction - awaiting LVAD placement at [facility] - scheduled to under-go re-eval in August 2020 - - MARISSA on 07/29/20: No evidence of endocarditis, LVEF 15-20%, mod MR, mod to severe tricuspid regurg, PASP approx 45 mmHg RHC at [facility] on May 30, [address] Hughes showed RA pressure of 12, PA pressure with mean of 49, wedge pressure 18, diastolic pressure gradient of 22 mmHg with pulmonary vascular resistance of 8, cardiac output severely low. CAD: - Has h/o 2 cor stents in 2008 at [facility] by Dr Beck: PTCA and stenting of mid LCX, cutting balloon angioplasty of 3rd diag, stenting of mid and distal RCA - MPI of June 01, [address] Beck showed LVEF 29%. Global left ventricular hypokinesis. No prominent ischemia noted - CHC at [facility] on May 30, 2020 showed LAD with 40-50% stenosis; diagonal in stent restenosis of 50-60%; large intermediate ramus with ostial lesion of 50%; mid cx tith 50-70% in stent restenosis Found to be cocaine positive during hospitalization at [facility] in June [address] Hughes's note of 07-18-20 Dual chamber AICD in placed in August 05, [address] Lewis. S/P pulse gen change out June 15, [address] Beck d/t device reaching NIKO Mitral regurg. - Echocardiogram of Dec 17, 2018 showed LVEF 10-15%. Severe diffuse hypokinesis. Severe MR. Trivial AoR. Severe TR. RVSP approx 51mmHg - Echocardiogram of Feb 15, 2020 showed LVEF 10-15%. LV size mod increased. Wall thickness is normal. Mod to severe diffuse hypokinesis. RV cavity size is increased. LA and RA mod dilated. Severe MR. Mod to severe TR. PASP approx 60 mmHG - Echocardiogram of 07-28-[address] Wall showed LVEF 25-30%. Severe MR. Mod TR. PASP 65-70mmHg - MARISSA on 07/29/20: No evidence of endocarditis, LVEF 15-20%, mod MR, mod to severe tricuspid regurg, PASP approx 45 mmHg H/o CVA (no residual symptoms) per pt report CKD 3-4 Quit smoking 2017 Plan: Complex management issue for reasons noted above Continue milrinone Continue anticoag Treat septicemia (Med svce) Monitor lab closely Replace electrolytes as indicated I discussed his CV issues with him and the findings of MARISSA of 07/29/20 RONNI OBREGON MD FACP FAC CCDS Jul 30, 2020 12:41
--- NOTE | 2020-07-30 14:29 | Diagnostic Imaging Report ---
INDICATION: PICC line placement. Time of exam 12:58 p.m. Correlation is made with prior chest from 06/24/2020. The heart is enlarged. Cardiac defibrillator remains in place. A right-sided line has its tip overlying the SVC. There is no pneumothorax. Lungs are clear. IMPRESSION: No acute abnormality is detected. Dictated by: Dictated on workstation # [id number]
[2020-07-30 16:23] VITALS: BP 121/78
[2020-07-30 19:35] VITALS: BP 105/72
[2020-07-30 23:30] VITALS: BP 101/58
[2020-07-31 03:36] VITALS: BP 117/68
[2020-07-31] MEDS: ceFAZolin 2 GM IV Premixed 50 ML IV SCH ×3 (04:15→20:13)
[2020-07-31 04:39] LABS: BASOPHILS % (AUTO) 0 % (0-10); EOSINOPHILS % (AUTO) 0 % (0-10); HEMATOCRIT 36 % (40-54); HEMOGLOBIN 11.9 g/dL (13.3-17.7); LYMPHOCYTES # (AUTO) 0.9 10^3/uL (1.0-4.0); LYMPHOCYTES % (AUTO) 7 % (12-44); MEAN CORPUSCULAR HEMOGLOBIN 32 pg (25-34); MEAN CORPUSCULAR HGB CONC 33 g/dL (32-36); MEAN CORPUSCULAR VOLUME 97 fL (80-99); MEAN PLATELET VOLUME 9.1 fL (9.0-12.2); MONOCYTES % (AUTO) 16 % (0-12); NEUTROPHILS # (AUTO) 9.4 10^3/uL (1.8-7.8); NEUTROPHILS % (AUTO) 75 % (42-75); PLATELET COUNT 256 10^3/uL (130-400); WHITE BLOOD COUNT 12.4 10^3/uL (4.3-11.0)
[2020-07-31 04:57] LABS: POTASSIUM 4.7 MMOL/L (3.6-5.0)
[2020-07-31 04:58] LABS: CALCIUM 9.6 MG/DL (8.5-10.1)
[2020-07-31 05:03] LABS: CREATININE SERUM 1.47 MG/DL (0.60-1.30)
[2020-07-31] MEDS: predniSONE 20 MG TAB PO SCH (06:10)
[2020-07-31 08:00] VITALS: BP 108/62
[2020-07-31] MEDS ORDERED: FUROSEMIDE 40 MG/4 ML INJ (LASIX) IVP ONE (09:00)
[2020-07-31] MEDS ORDERED: MILRINONE IV SCH ×3 (09:00)
[2020-07-31] MEDS ORDERED: D5W IV SCH ×3 (09:00)
--- NOTE | 2020-07-31 09:14 | Progress Note ---
Subjective Subjective/Events-last exam Afebrile, this morning had some increased work of breathing and is requiring 5 lpm supplemental oxygen. Objective Exam Last Set of Vital Signs Vital Signs Date Time Temp Pulse Resp B/P (MAP) Pulse Ox O2 Delivery O2 Flow Rate FiO2 07/31/20 08:00 36.6 75 18 108/62 (77) 91 Room Air 07/30/20 17:36 2.00 Capillary Refill : Less Than 3 Seconds I&O Intake and Output 07/30/20 23:59 Intake Total 1400 ml Output Total 1000 ml Balance 400 ml Intake Oral 1400 ml Output Urine Total 1000 ml # Voids 3 General: Alert, Mild Distress Lungs: Other (rales at bases) Heart: Regular Rate Abdomen: Normal Bowel Sounds, Soft Neuro: Normal Speech Psych/Mental Status: Mood NL Results/Procedures Lab Laboratory Tests 07/31/20 04:20: White Blood Count 12.4H, Red Blood Count 3.74L, Hemoglobin 11.9L, Hematocrit 36L , Mean Corpuscular Volume 97, Mean Corpuscular Hemoglobin 32, Mean Corpuscular Hemoglobin Concent 33, Red Cell Distribution Width 14.3, Platelet Count 256, Mean Platelet Volume 9.1, Immature Granulocyte % (Auto) 1, Neutrophils (%) (Auto) 75, Lymphocytes (%) (Auto) 7L, Monocytes (%) (Auto) 16H, Eosinophils (%) (Auto) 0, Basophils (%) (Auto) 0, Neutrophils # (Auto) 9.4H, Lymphocytes # (Auto) 0.9L, Monocytes # (Auto) 2.0H, Eosinophils # (Auto) 0.0, Basophils # (Auto) 0.0, Immature Granulocyte # (Auto) 0.1, Sodium Level 133L, Potassium Level 4.7, Chloride Level 98, Carbon Dioxide Level 23, Anion Gap 12, Blood Urea Nitrogen 34H, Creatinine 1.47H, Estimat Glomerular Filtration Rate 59, BUN/Creatinine Ratio 23, Glucose Level 129H, Calcium Level 9.6 Microbiology 07/28/20 Blood Culture - Preliminary, Resulted No growth Assessment/Plan Assessment/Plan (1) Respiratory failure Status: Acute Assessment & Plan: New supplemental oxygen requirement this am, lasix given per Cardiology, CTA ordered to eval for PE. Qualifiers: Qualified Codes: J96.01 - Acute respiratory failure with hypoxia (2) CHF (congestive heart failure) Status: Chronic Assessment & Plan: On continuous milrinone infusion per [facility], he has his pump with him and will continue current dosing. Qualifiers: Qualified Codes: I50.22 - Chronic systolic (congestive) heart failure (3) Left arm cellulitis Status: Acute Assessment & Plan: Ceftriaxone and vancomycin 07/27 change ceftriaxone to cefazolin based on 07/23 culture 07/28 d/c vanc with MSSA on blood cultures (4) Positive blood culture Status: Acute Assessment & Plan: Suspected staph aureus from 07/23 culture, final still pending. Does not meet sepsis criteria- has elevated WBC but no other SIRS criteria. 07/27- repeat cultures from 07/26 positive for staph aureus in all bottles, awaiting MRSA prelim, suspect will be MSSA as culture from 07/23 is MSSA, continue vancomycin, change ceftriaxone to cefazolin. Repeat blood cultures today, echo in the morning for vegetation eval. 07/28- discussed with [facility] and they recommended treating to negative culture and then replace port, if unable to get negative cultures by 72 hours, will need to readdress port question. TTE without obvious abnormality, consult Cardiology for MARISSA given ICD in place. 07/29- MARISSA today, blood cultures from 07/27 negative so far 07/30- MARISSA negative for vegetations, 07/27 blood cultures still negative, will need port replaced, working on clarifying if this can be done locally 07/31- supplies not available for tunneled port catheter here, will need to coordinate with [facility] on d/c, given cultures clear, will continue current antibiotics. (5) CKD (chronic kidney disease) Status: Chronic Assessment & Plan: At baseline. Qualifiers: Qualified Codes: N18.31 - Chronic kidney disease, stage 3a (6) Borderline diabetes mellitus Status: Chronic Assessment & Plan: Continue home Jardiance (7) Thrombosis Status: Acute Assessment & Plan: Non-occlusive thrombosis associated with left PICC diagnosed on 07/23, however he has had worsening of symptoms, will start enoxaparin and repeat US when available. 07/28 US with more than one nearly occlusive thrombus, will continue anticoagulation, change from enoxaparin to rivaroxaban (8) Ischemic cardiomyopathy with implantable cardioverter-defibrillator (ICD) Status: Chronic (9) Hyponatremia Status: Acute Assessment & Plan: Likely secondary to chronic fluid overload, monitor. (10) Acute right ankle pain Status: Acute Assessment & Plan: Given exam not consistent with gout and known bacteremia, will obtain x-ray initially and if unrevealing, consider advanced imaging 07/28 xrays unremarkable, possibly gout related, but would prefer to avoid steroids if possible, will continue to monitor 07/29- worsening and with warmth in knee, can't use colchicine due to interaction with carvedilol and kidney function, will start prednisone due to severity causing difficulty ambulating 07/30 improving on prednisone (11) DVT prophylaxis Status: Acute Assessment & Plan: Rivaroxaban ERASTO KAPLAN MD Jul 31, 2020 09:14
[2020-07-31] MEDS ORDERED: NS 100 ML (IVPB) BAG IV ONE (09:30)
[2020-07-31] MEDS ORDERED: IOHEXOL 350 MG/ML 100 ML (OMNIPAQUE 350) VIAL IV ONE (09:30)
[2020-07-31] MEDS ORDERED: CATHETER FLUSH 10 ML SYR IV PRN (09:30)
[2020-07-31] MEDS ORDERED: HOLD METFORMIN - RECEIVED CONTRAST 20 ML VIAL IV SCH (09:30)
[2020-07-31] MEDS: FUROSEMIDE 20 MG (LASIX) TAB PO SCH (09:33)
[2020-07-31] MEDS: PANTOPRAZOLE 40 MG (PROTONIX) TAB PO SCH ×2 (10:01→20:13)
[2020-07-31] MEDS: RIVAROXABAN 15 MG TABLET (XARELTO) PO SCH ×2 (10:01→17:47)
[2020-07-31] MEDS: SERTRALINE 50 MG (ZOLOFT) TABLET PO SCH (10:01)
[2020-07-31] MEDS: AMIODARONE 200 MG (CORDARONE) TAB PO SCH (10:01)
[2020-07-31] MEDS: SPIRONOLACTONE 25 MG (ALDACTONE) TAB PO SCH (10:02)
[2020-07-31] MEDS: ISOSORBIDE DINITRATE 10 MG (ISORDIL) TABLET PO SCH ×3 (10:02→20:13)
[2020-07-31] MEDS: BETAMETHASONE DIPRO (AUGMENTED) 0.05% OINT 15 GM TOP SCH ×2 (10:03→20:14)
[2020-07-31] MEDS: ASPIRIN E.C. 81 MG (ECOTRIN) TAB PO SCH (10:03)
--- NOTE | 2020-07-31 11:57 | Diagnostic Imaging Report ---
Clinical indication: Patient with hypoxia with upper extremity DVT and left arm infection. Exam: CT angiogram of the chest performed with 73 cc Omnipaque 350 IV contrast. Coronal and oblique MIP images of the vasculature were created to better evaluate anatomy. Auto Exposure Controls were utilized during the CT exam to meet ALARA standards for radiation dose reduction. Comparison: Chest x-ray dated 07/30/2020. Findings: There is no evidence of pulmonary embolism. There is no thoracic aortic aneurysm seen. The thoracic aorta is not significantly contrast past 5, and further evaluation is greatly limited. There is geographic patchy areas of groundglass opacification with interlobular septal thickening with crazy paving appearance involving both lungs with the right upper lobe affected the most. There is peripheral septal thickening involving both lungs. There is subpleural emphysematous changes involving both lung apices. Pulmonary bronchi are unremarkable. There is mediastinal and hilar lymphadenopathy seen. Marker lymph node in the left side of the transverse aortic arch is seen measuring 2.0 cm x 1.2 cm. There is no significant axillary lymphadenopathy. The gallbladder is decompressed and otherwise unremarkable. The remainder of the visualized upper abdominal structures show no significant abnormality. There are degenerative spurs involving the thoracic spine. Impression: 1: There is no evidence of pulmonary embolism or thoracic aortic aneurysm. 2: There is diffuse patchy and geographic groundglass opacification throughout both lungs concerning for pneumonia. 3: There is mediastinal and bilateral hilar lymphadenopathy. Dictated by: Dictated on workstation # [id number]
[2020-07-31 12:00] VITALS: BP 107/62
--- NOTE | 2020-07-31 12:56 | Progress Note - Cardiology ---
Cardiology SOAP Progress Note Subjective: More short of breath this am No cp or palp or syncope No n/v/d Gen weakness and malaise present Objective: I&O/Vital Signs 07/31/20 07/31/20 07/31/20 07/31/20 01:00 03:36 07:00 08:00 Temp 36.2 36.6 Pulse 80 77 75 75 Resp 18 18 B/P (MAP) 117/68 (84) 108/62 (77) Pulse Ox 90 91 O2 Delivery Room Air Room Air 07/31/20 12:00 Temp 36.8 Pulse 55 Resp 18 B/P (MAP) 107/62 (77) Pulse Ox 93 O2 Delivery Room Air 07/31/20 00:00 Intake Total 1000 ml Output Total 700 ml Balance 300 ml Constitutional: AAO x 3, well-developed, well-nourished Respiratory: No accessory muscle use, No respiratory distress; lungs clear to auscultation Cardiovascular: No JVD; S1 and S2, systolic murmur Gastrointestional: No tender; soft, round Extremities: no lower extremity edema bilateral Neurologic/Psychiatric: oriented x 3, other (moves all imbs equally) Skin: other (warmth to upper left arm and L knee) Results/Procedures: Labs Laboratory Tests 07/31/20 04:20: White Blood Count 12.4H, Red Blood Count 3.74L, Hemoglobin 11.9L, Hematocrit 36L , Mean Corpuscular Volume 97, Mean Corpuscular Hemoglobin 32, Mean Corpuscular Hemoglobin Concent 33, Red Cell Distribution Width 14.3, Platelet Count 256, Mean Platelet Volume 9.1, Immature Granulocyte % (Auto) 1, Neutrophils (%) (Auto) 75, Lymphocytes (%) (Auto) 7L, Monocytes (%) (Auto) 16H, Eosinophils (%) (Auto) 0, Basophils (%) (Auto) 0, Neutrophils # (Auto) 9.4H, Lymphocytes # (Auto) 0.9L, Monocytes # (Auto) 2.0H, Eosinophils # (Auto) 0.0, Basophils # (Auto) 0.0, Immature Granulocyte # (Auto) 0.1, Sodium Level 133L, Potassium Level 4.7, Chloride Level 98, Carbon Dioxide Level 23, Anion Gap 12, Blood Urea Nitrogen 34H, Creatinine 1.47H, Estimat Glomerular Filtration Rate 59, BUN/Creatinine Ratio 23, Glucose Level 129H, Calcium Level 9.6 Microbiology 07/28/20 Blood Culture - Preliminary, Resulted No growth Laboratory Tests 07/30/20 04:50 07/31/20 04:20 A/P: Assessment: Sepsis - carlitos smith - suspected site of previous PICC line which was placed at [facility] for continuous milrinone infusion and pulled on July 25 d/t line clotting off, RACW port placed on the same date at [facility] - management per Medical services - MARISSA on 07/29/20: No evidence of endocarditis, LVEF 15-20%, mod MR, mod to severe tricuspid regurg, PASP approx 45 mmHg Left upper extremity DVT (see details above) - Xarelto Ch systolic CHF - continuous milrinone infusion - management per [facility], Dr. Hughes Ischemic dilated cardiomyopathy - MARISSA on May 30 at [facility] showed mitral regurg with LVEF 10% with severely dilated ventricle, tricuspid regurg, mod RV dysfunction - awaiting LVAD placement at [facility] - scheduled to under-go re-eval in August 2020 - - MARISSA on 07/29/20: No evidence of endocarditis, LVEF 15-20%, mod MR, mod to severe tricuspid regurg, PASP approx 45 mmHg RHC at [facility] on May 30, [address] Hughes showed RA pressure of 12, PA pressure with mean of 49, wedge pressure 18, diastolic pressure gradient of 22 mmHg with pulmonary vascular resistance of 8, cardiac output severely low. CAD: - Has h/o 2 cor stents in 2008 at [facility] by Dr Beck: PTCA and stenting of mid LCX, cutting balloon angioplasty of 3rd diag, stenting of mid and distal RCA - MPI of June 01, [address] Beck showed LVEF 29%. Global left ventricular hypokinesis. No prominent ischemia noted - CHC at [facility] on May 30, 2020 showed LAD with 40-50% stenosis; diagonal in stent restenosis of 50-60%; large intermediate ramus with ostial lesion of 50%; mid cx tith 50-70% in stent restenosis Found to be cocaine positive during hospitalization at [facility] in June [address] Hughes's note of 07-18-20 Dual chamber AICD in placed in August 05, [address] Lewis. S/P pulse gen change out June 15, [address] Beck d/t device reaching NIKO Mitral regurg. - Echocardiogram of Dec 17, 2018 showed LVEF 10-15%. Severe diffuse hypokinesis. Severe MR. Trivial AoR. Severe TR. RVSP approx 51mmHg - Echocardiogram of Feb 15, 2020 showed LVEF 10-15%. LV size mod increased. Wall thickness is normal. Mod to severe diffuse hypokinesis. RV cavity size is increased. LA and RA mod dilated. Severe MR. Mod to severe TR. PASP approx 60 mmHG - Echocardiogram of 07-28-[address] Wall showed LVEF 25-30%. Severe MR. Mod TR. PASP 65-70mmHg - MARISSA on 07/29/20: No evidence of endocarditis, LVEF 15-20%, mod MR, mod to severe tricuspid regurg, PASP approx 45 mmHg H/o CVA (no residual symptoms) per pt report CKD 3-4 Quit smoking 2017 Plan: Complex management issue for reasons noted above iv furosemide today Evaluated for PE Continue milrinone Continue anticoag Treat septicemia (Med svce) Monitor lab closely Replace electrolytes as indicated I discussed his case with Dr Carlos this am RONNI OBREGON MD FACP FACC CCDS Jul 31, 2020 12:56
[2020-07-31 16:20] VITALS: BP 116/78
[2020-07-31 20:50] VITALS: BP 100/65
[2020-08-01 00:17] VITALS: BP 101/61
[2020-08-01] MEDS: ceFAZolin 2 GM IV Premixed 50 ML IV SCH ×2 (03:46→13:13)
[2020-08-01 03:55] VITALS: BP 111/73
[2020-08-01 05:07] LABS: BASOPHILS % (AUTO) 0 % (0-10); EOSINOPHILS % (AUTO) 0 % (0-10); HEMATOCRIT 35 % (40-54); HEMOGLOBIN 11.7 g/dL (13.3-17.7); LYMPHOCYTES % (AUTO) 10 % (12-44); MEAN CORPUSCULAR HEMOGLOBIN 32 pg (25-34); MEAN CORPUSCULAR HGB CONC 34 g/dL (32-36); MEAN CORPUSCULAR VOLUME 95 fL (80-99); MONOCYTES # (AUTO) 1.6 10^3/uL (0.0-1.0); MONOCYTES % (AUTO) 15 % (0-12); NEUTROPHILS # (AUTO) 7.9 10^3/uL (1.8-7.8); NEUTROPHILS % (AUTO) 74 % (42-75); PLATELET COUNT 297 10^3/uL (130-400); WHITE BLOOD COUNT 10.7 10^3/uL (4.3-11.0)
[2020-08-01 05:24] LABS: POTASSIUM 4.3 MMOL/L (3.6-5.0)
[2020-08-01 05:26] LABS: CALCIUM 9.1 MG/DL (8.5-10.1)
[2020-08-01 05:30] LABS: CREATININE SERUM 1.66 MG/DL (0.60-1.30)
[2020-08-01] MEDS: predniSONE 20 MG TAB PO SCH (05:45)
[2020-08-01] MEDS: RIVAROXABAN 15 MG TABLET (XARELTO) PO SCH (05:45)
[2020-08-01 08:00] VITALS: BP 106/60
[2020-08-01] MEDS: SERTRALINE 50 MG (ZOLOFT) TABLET PO SCH (09:38)
[2020-08-01] MEDS: FUROSEMIDE 20 MG (LASIX) TAB PO SCH (09:38)
[2020-08-01] MEDS: ASPIRIN E.C. 81 MG (ECOTRIN) TAB PO SCH (09:38)
[2020-08-01] MEDS: SPIRONOLACTONE 25 MG (ALDACTONE) TAB PO SCH (09:38)
[2020-08-01] MEDS: ISOSORBIDE DINITRATE 10 MG (ISORDIL) TABLET PO SCH ×2 (09:39→13:13)
[2020-08-01] MEDS: PANTOPRAZOLE 40 MG (PROTONIX) TAB PO SCH (09:39)
[2020-08-01] MEDS: AMIODARONE 200 MG (CORDARONE) TAB PO SCH (09:39)
[2020-08-01] MEDS: BETAMETHASONE DIPRO (AUGMENTED) 0.05% OINT 15 GM TOP SCH (09:39)
--- NOTE | 2020-08-01 10:01 | Progress Note - Cardiology ---
Cardiology SOAP Progress Note Subjective: Lying in bed. States his breathing is better this morning. No c/o CP. LUE swelling and discomfort has improved. Objective: I&O/Vital Signs 08/01/20 08/01/20 08/01/20 08/01/20 00:17 01:00 03:55 07:00 Temp 36.4 36.5 Pulse 71 74 68 71 Resp 18 18 B/P (MAP) 101/61 (74) 111/73 (86) Pulse Ox 93 90 O2 Delivery Room Air Room Air 08/01/20 08:00 Temp 36.2 Pulse 70 Resp 20 B/P (MAP) 106/60 (75) Pulse Ox 92 O2 Delivery Nasal Cannula O2 Flow Rate 4.00 08/01/20 00:00 Intake Total 1150 ml Output Total 1100 ml Balance 50 ml Constitutional: AAO x 3, well-developed, well-nourished Respiratory: No accessory muscle use, No respiratory distress; lungs clear to auscultation Cardiovascular: No JVD; S1 and S2, systolic murmur Gastrointestional: No tender; soft, round Extremities: no lower extremity edema bilateral Neurologic/Psychiatric: oriented x 3, other (moves all imbs equally) Skin: other (warmth to upper left arm and L knee) Results/Procedures: Labs Laboratory Tests 08/01/20 04:40: White Blood Count 10.7, Red Blood Count 3.67L, Hemoglobin 11.7L, Hematocrit 35L, Mean Corpuscular Volume 95, Mean Corpuscular Hemoglobin 32, Mean Corpuscular Hemoglobin Concent 34, Red Cell Distribution Width 14.6H, Platelet Count 297, Mean Platelet Volume 9.0, Immature Granulocyte % (Auto) 1, Neutrophils (%) (Auto) 74, Lymphocytes (%) (Auto) 10L, Monocytes (%) (Auto) 15H, Eosinophils (%) (Auto) 0, Basophils (%) (Auto) 0, Neutrophils # (Auto) 7.9H, Lymphocytes # (Auto) 1.0, Monocytes # (Auto) 1.6H, Eosinophils # (Auto) 0.0, Basophils # (Auto) 0.0, Immature Granulocyte # (Auto) 0.1, Sodium Level 134L, Potassium Level 4.3, Chloride Level 97L, Carbon Dioxide Level 22, Anion Gap 15H, Blood Urea Nitrogen 38H, Creatinine 1.66H, Estimat Glomerular Filtration Rate 51, BUN/Creatinine Ratio 23, Glucose Level 138H, Calcium Level 9.1 Microbiology 07/28/20 Blood Culture - Preliminary, Resulted No growth Laboratory Tests 07/31/20 04:20 08/01/20 04:40 A/P: Assessment: No evidence of PE on CTA of the chest on 07-31-20 Sepsis - staph aureas - suspected site of previous PICC line which was placed at [facility] for continuous milrinone infusion and pulled on July 25 d/t line clotting off, RACW port placed on the same date at [facility] - management per Medical services - MARISSA on 07/29/20: No evidence of endocarditis, LVEF 15-20%, mod MR, mod to severe tricuspid regurg, PASP approx 45 mmHg Left upper extremity DVT (see details above) - Xarelto Ch systolic CHF - continuous milrinone infusion - management per [facility], Dr. Hughes Ischemic dilated cardiomyopathy - MARISSA on May 30 at [facility] showed mitral regurg with LVEF 10% with severely dilated ventricle, tricuspid regurg, mod RV dysfunction - awaiting LVAD placement at [facility] - scheduled to under-go re-eval in August 2020 - - MARISSA on 07/29/20: No evidence of endocarditis, LVEF 15-20%, mod MR, mod to severe tricuspid regurg, PASP approx 45 mmHg RHC at [facility] on May 30, [address] Hughes showed RA pressure of 12, PA pressure with mean of 49, wedge pressure 18, diastolic pressure gradient of 22 mmHg with pulmonary vascular resistance of 8, cardiac output severely low. CAD: - Has h/o 2 cor stents in 2008 at [facility] by Dr Beck: PTCA and stenting of mid LCX, cutting balloon angioplasty of 3rd diag, stenting of mid and distal RCA - MPI of June 01, [address] Beck showed LVEF 29%. Global left ventricular hypokinesis. No prominent ischemia noted - CHC at [facility] on May 30, 2020 showed LAD with 40-50% stenosis; diagonal in stent restenosis of 50-60%; large intermediate ramus with ostial lesion of 50%; mid cx tith 50-70% in stent restenosis Found to be cocaine positive during hospitalization at [facility] in June [address] Hughes's note of 07-18-20 Dual chamber AICD in placed in August 05, [address] Lewis. S/P pulse gen change out June 15, [address] Beck d/t device reaching NIKO Mitral regurg. - Echocardiogram of Dec 17, 2018 showed LVEF 10-15%. Severe diffuse hypokinesis. Severe MR. Trivial AoR. Severe TR. RVSP approx 51mmHg - Echocardiogram of Feb 15, 2020 showed LVEF 10-15%. LV size mod increased. Wall thickness is normal. Mod to severe diffuse hypokinesis. RV cavity size is increased. LA and RA mod dilated. Severe MR. Mod to severe TR. PASP approx 60 mmHG - Echocardiogram of 07-28-[address] Wall showed LVEF 25-30%. Severe MR. Mod TR. PASP 65-70mmHg - MARISSA on 07/29/20: No evidence of endocarditis, LVEF 15-20%, mod MR, mod to severe tricuspid regurg, PASP approx 45 mmHg H/o CVA (no residual symptoms) per pt report CKD 3-4 Quit smoking 2017 Plan: Complex management issue for reasons noted above Continue milrinone Continue anticoag Treat septicemia (Med svce) Monitor lab closely Replace electrolytes as indicated TOÑA ENRIQUEZ Aug 01, 2020 10:01
--- NOTE | 2020-08-01 11:14 | Progress Note ---
Subjective Subjective/Events-last exam Afebrile, really wants to go home but had marked desat with exercise yesterday. He states he oxygenates better at home when active. Objective Exam Last Set of Vital Signs Vital Signs Date Time Temp Pulse Resp B/P (MAP) Pulse Ox O2 Delivery O2 Flow Rate FiO2 08/01/20 08:00 36.2 70 20 106/60 (75) 92 Nasal Cannula 4.00 Capillary Refill : Less Than 3 Seconds I&O Intake and Output 08/01/20 00:00 Intake Total 1500 ml Output Total 1500 ml Balance 0 ml Intake Oral 1450 ml IV Total 50 ml Output Urine Total 1500 ml # Bowel Movements 3 General: Alert, No Acute Distress Lungs: Clear to Auscultation, Normal Air Movement Heart: Regular Rate, No Murmurs Abdomen: Normal Bowel Sounds, Soft Extremities: No Edema Psych/Mental Status: Mood NL Results/Procedures Lab Laboratory Tests 08/01/20 04:40: White Blood Count 10.7, Red Blood Count 3.67L, Hemoglobin 11.7L, Hematocrit 35L, Mean Corpuscular Volume 95, Mean Corpuscular Hemoglobin 32, Mean Corpuscular Hemoglobin Concent 34, Red Cell Distribution Width 14.6H, Platelet Count 297, Mean Platelet Volume 9.0, Immature Granulocyte % (Auto) 1, Neutrophils (%) (Auto) 74, Lymphocytes (%) (Auto) 10L, Monocytes (%) (Auto) 15H, Eosinophils (%) (Auto) 0, Basophils (%) (Auto) 0, Neutrophils # (Auto) 7.9H, Lymphocytes # (Auto) 1.0, Monocytes # (Auto) 1.6H, Eosinophils # (Auto) 0.0, Basophils # (Auto) 0.0, Immature Granulocyte # (Auto) 0.1, Sodium Level 134L, Potassium Level 4.3, Chloride Level 97L, Carbon Dioxide Level 22, Anion Gap 15H, Blood Urea Nitrogen 38H, Creatinine 1.66H, Estimat Glomerular Filtration Rate 51, BUN/Creatinine Ratio 23, Glucose Level 138H, Calcium Level 9.1 Microbiology 07/28/20 Blood Culture - Preliminary, Resulted No growth Assessment/Plan Assessment/Plan (1) Respiratory failure Status: Acute Assessment & Plan: New supplemental oxygen requirement this am, lasix given per Cardiology, CTA ordered to eval for PE. 08/01 CTA negative for PE, improved symptomatically after lasix, wanting to go home, will try repeat home O2 study. Qualifiers: Qualified Codes: J96.01 - Acute respiratory failure with hypoxia (2) CHF (congestive heart failure) Status: Chronic Assessment & Plan: On continuous milrinone infusion per [facility], he has his pump with him and will continue current dosing. Qualifiers: Qualified Codes: I50.22 - Chronic systolic (congestive) heart failure (3) Left arm cellulitis Status: Acute Assessment & Plan: Ceftriaxone and vancomycin 07/27 change ceftriaxone to cefazolin based on 07/23 culture 07/28 d/c vanc with MSSA on blood cultures (4) Positive blood culture Status: Acute Assessment & Plan: Suspected staph aureus from 07/23 culture, final still pending. Does not meet sepsis criteria- has elevated WBC but no other SIRS criteria. 07/27- repeat cultures from 07/26 positive for staph aureus in all bottles, awaiting MRSA prelim, suspect will be MSSA as culture from 07/23 is MSSA, continue vancomycin, change ceftriaxone to cefazolin. Repeat blood cultures today, echo in the morning for vegetation eval. 07/28- discussed with [facility] and they recommended treating to negative culture and then replace port, if unable to get negative cultures by 72 hours, will need to readdress port question. TTE without obvious abnormality, consult Cardiology for MARISSA given ICD in place. 07/29- MARISSA today, blood cultures from 07/27 negative so far 07/30- MARISSA negative for vegetations, 07/27 blood cultures still negative, will need port replaced, working on clarifying if this can be done locally 07/31- supplies not available for tunneled port catheter here, will need to coordinate with [facility] on d/c, given cultures clear, will continue current antibiotics. (5) CKD (chronic kidney disease) Status: Chronic Assessment & Plan: At baseline. Qualifiers: Qualified Codes: N18.31 - Chronic kidney disease, stage 3a (6) Borderline diabetes mellitus Status: Chronic Assessment & Plan: Continue home Jardiance (7) Thrombosis Status: Acute Assessment & Plan: Non-occlusive thrombosis associated with left PICC diagnosed on 07/23, however he has had worsening of symptoms, will start enoxaparin and repeat US when available. 07/28 US with more than one nearly occlusive thrombus, will continue anticoagulation, change from enoxaparin to rivaroxaban (8) Ischemic cardiomyopathy with implantable cardioverter-defibrillator (ICD) Status: Chronic (9) Hyponatremia Status: Acute Assessment & Plan: Likely secondary to chronic fluid overload, monitor. (10) Acute right ankle pain Status: Acute Assessment & Plan: Given exam not consistent with gout and known bacteremia, will obtain x-ray initially and if unrevealing, consider advanced imaging 07/28 xrays unremarkable, possibly gout related, but would prefer to avoid steroids if possible, will continue to monitor 07/29- worsening and with warmth in knee, can't use colchicine due to interaction with carvedilol and kidney function, will start prednisone due to severity causing difficulty ambulating 07/30 improving on prednisone (11) DVT prophylaxis Status: Acute Assessment & Plan: Rivaroxaban ERASTO KAPLAN MD Aug 01, 2020 11:14
--- NOTE | 2020-08-01 11:18 | D/C HH Face to Face Order ---
D/C Face to Face Orders Instructions for Patient Via [facility], Patient Instructions/FollowUp: Follow up with primary within one week of discharge You will need to have your primary refer you to [facility] to further manage your bacteremia and port Follow up with Cardiology as directed Physician to follow Patient: Clarissa JODY Martinez Discharge Diet for Home: Cardiac Diet Patient Problems: Chronic systolic CHF MSSA bacteremia Gout Patient Data-Allergies,Ht & Wt Patient Allergies: Coded Allergies: ramipril (Verified Allergy, Unknown, 07/29/20) Home Health Need/Face to Face Date of Face to Face: Aug 01, 2020 Clinical Findings: Shortness of breath I have seen Pt [id number]: Yes Discharged To: Home Diagnosis/Conditions: Chronic systolic CHF MSSA bacteremia Gout Patient is Homebound due to: Shortness of breath/distress Homebound Status Due to the above stated illness, injury or surgical procedure (medical condition or diagnosis) and associated clinical findings, the patient is homebound because of his/her inability to leave home except with aid of a supportive device and/or person AND leaving the home requires a considerable and taxing effort or is medically contraindicated. Pt req the following assistanc: Aid of another person Home Health Nursing Orders Home Health Services Order: Nursing Services Home Health Infusion Therapy Line Start Date: Jul 26, 2020 Line Type: Marcie Certify [facility] I certify that this patient is under my care and that I, a nurse practitioner or a physician; a clerical assistant working with me, had a face to face encounter that - meets the physician face to face encounter requirements with this patient as dated. ERASTO KAPLAN MD Aug 01, 2020 11:18
[2020-08-01 12:00] VITALS: BP 99/61
--- NOTE | 2020-08-01 12:20 | Progress Note - Cardiology ---
Cardiology SOAP Progress Note Subjective: Gen malaise and weakness Shortness of breath with exertion No cp or palp or syncope No n/v/d Objective: I&O/Vital Signs 08/01/20 08/01/20 08/01/20 08/01/20 01:00 03:55 07:00 08:00 Temp 36.5 36.2 Pulse 74 68 71 70 Resp 18 20 B/P (MAP) 111/73 (86) 106/60 (75) Pulse Ox 90 92 O2 Delivery Room Air Nasal Cannula O2 Flow Rate 4.00 08/01/20 08/01/20 08/01/20 08/01/20 08:00 11:45 11:45 12:00 Temp 36.4 Pulse 88 61 Resp 20 B/P (MAP) 99/61 (74) Pulse Ox 90 93 90 93 87 O2 Delivery Nasal Cannula Nasal Cannula O2 Flow Rate 4.00 4.00 4.00 5.00 08/01/20 00:00 Intake Total 1150 ml Output Total 1100 ml Balance 50 ml Constitutional: AAO x 3, well-developed, well-nourished Respiratory: No accessory muscle use, No respiratory distress; lungs clear to auscultation Cardiovascular: No JVD; S1 and S2, systolic murmur Gastrointestional: No tender; soft, round Extremities: no lower extremity edema bilateral Neurologic/Psychiatric: oriented x 3, other (moves all imbs equally) Skin: other (warmth to upper left arm and L knee) Results/Procedures: Labs Laboratory Tests 08/01/20 04:40: White Blood Count 10.7, Red Blood Count 3.67L, Hemoglobin 11.7L, Hematocrit 35L, Mean Corpuscular Volume 95, Mean Corpuscular Hemoglobin 32, Mean Corpuscular Hemoglobin Concent 34, Red Cell Distribution Width 14.6H, Platelet Count 297, Mean Platelet Volume 9.0, Immature Granulocyte % (Auto) 1, Neutrophils (%) (Auto) 74, Lymphocytes (%) (Auto) 10L, Monocytes (%) (Auto) 15H, Eosinophils (%) (Auto) 0, Basophils (%) (Auto) 0, Neutrophils # (Auto) 7.9H, Lymphocytes # (Auto) 1.0, Monocytes # (Auto) 1.6H, Eosinophils # (Auto) 0.0, Basophils # (Auto) 0.0, Immature Granulocyte # (Auto) 0.1, Sodium Level 134L, Potassium Level 4.3, Chloride Level 97L, Carbon Dioxide Level 22, Anion Gap 15H, Blood Urea Nitrogen 38H, Creatinine 1.66H, Estimat Glomerular Filtration Rate 51, BUN/Creatinine Ratio 23, Glucose Level 138H, Calcium Level 9.1 Microbiology 07/28/20 Blood Culture - Preliminary, Resulted No growth Laboratory Tests 07/31/20 04:20 08/01/20 04:40 A/P: Assessment: No evidence of PE on CTA of the chest on 07-31-20 Sepsis - carlitos riveraas - suspected site of previous PICC line which was placed at [facility] for continuous milrinone infusion and pulled on July 25 d/t line clotting off, RACW port placed on the same date at [facility] - management per Medical services - MARISSA on 07/29/20: No evidence of endocarditis, LVEF 15-20%, mod MR, mod to severe tricuspid regurg, PASP approx 45 mmHg Left upper extremity DVT (see details above) - Xarelto Ch systolic CHF - continuous milrinone infusion - management per [facility], Dr. Hughes Ischemic and non-ischemic dilated cardiomyopathy - MARISSA on May 30 at [facility] showed mitral regurg with LVEF 10% with severely dilated ventricle, tricuspid regurg, mod RV dysfunction - awaiting LVAD placement at [facility] - scheduled to under-go re-eval in August 2020 - - MARISSA on 07/29/20: No evidence of endocarditis, LVEF 15-20%, mod MR, mod to severe tricuspid regurg, PASP approx 45 mmHg RHC at [facility] on May 30, [address] Hughes showed RA pressure of 12, PA pressure with mean of 49, wedge pressure 18, diastolic pressure gradient of 22 mmHg with pulmonary vascular resistance of 8, cardiac output severely low. CAD: - Has h/o 2 cor stents in 2008 at [facility] by Dr Beck: PTCA and stenting of mid LCX, cutting balloon angioplasty of 3rd diag, stenting of mid and distal RCA - MPI of June 01, [address] Beck showed LVEF 29%. Global left ventricular hypokinesis. No prominent ischemia noted - CHC at [facility] on May 30, 2020 showed LAD with 40-50% stenosis; diagonal in stent restenosis of 50-60%; large intermediate ramus with ostial lesion of 50%; mid cx tith 50-70% in stent restenosis Found to be cocaine positive during hospitalization at [facility] in June [address] Hughes's note of 07-18-20 Dual chamber AICD in placed in August 05, [address] Lewis. S/P pulse gen change out June 15, [address] Beck d/t device reaching NIKO Mitral regurg. - Echocardiogram of Dec 17, 2018 showed LVEF 10-15%. Severe diffuse hypokinesis. Severe MR. Trivial AoR. Severe TR. RVSP approx 51mmHg - Echocardiogram of Feb 15, 2020 showed LVEF 10-15%. LV size mod increased. Wall thickness is normal. Mod to severe diffuse hypokinesis. RV cavity size is increased. LA and RA mod dilated. Severe MR. Mod to severe TR. PASP approx 60 mmHG - Echocardiogram of 07-28-[address] Wall showed LVEF 25-30%. Severe MR. Mod TR. PASP 65-70mmHg - MARISSA on 07/29/20: No evidence of endocarditis, LVEF 15-20%, mod MR, mod to severe tricuspid regurg, PASP approx 45 mmHg H/o CVA (no residual symptoms) per pt report CKD 3-4 Quit smoking 2017 Plan: Complex management issue for reasons noted above Continue milrinone Continue anticoag Treat septicemia (Med svce) Monitor lab closely Replace electrolytes as indicated RONNI OBREGON MD FACP [facility] Aug 01, 2020 12:20
[2020-08-01 15:33] VITALS: BP 99/61
[2020-08-19] MEDS ORDERED: RIVAROXABAN 20 MG TABLET (XARELTO) PO SCH (07:00)
== END 2020-08-01 15:50 | disposition home health service (06) | DRG 314 ==
LOC: EDUNIT# 09:10 → ER 09:13 → 4TH 11:36 → OBSVTOIN 13:06
PROVIDERS: ADMIT Family Medicine; ATTEND Family Medicine
DX: T80.211A Bloodstream infection due to central venous catheter, initial encounter (principal); J96.00 Acute respiratory failure, unspecified whether with hypoxia or hypercapnia; A41.01 Sepsis due to Methicillin susceptible Staphylococcus aureus; L03.114 Cellulitis of left upper limb; I42.0 Dilated cardiomyopathy; E87.1 Hypo-osmolality and hyponatremia; I13.0 Hypertensive heart and chronic kidney disease with heart failure and stage 1 through stage 4 chronic kidney disease, or unspecified chronic kidney disease; I50.22 Chronic systolic (congestive) heart failure; I82.90 Acute embolism and thrombosis of unspecified vein; B95.61 Methicillin susceptible Staphylococcus aureus infection as the cause of diseases classified elsewhere; I25.5 Ischemic cardiomyopathy; N18.9 Chronic kidney disease, unspecified; Z79.82 Long term (current) use of aspirin; Z95.5 Presence of coronary angioplasty implant and graft; Z95.810 Presence of automatic (implantable) cardiac defibrillator; I25.10 Atherosclerotic heart disease of native coronary artery without angina pectoris; N18.31 Chronic kidney disease, stage 3a; E11.22 Type 2 diabetes mellitus with diabetic chronic kidney disease; I34.0 Nonrheumatic mitral (valve) insufficiency; Z86.73 Personal history of transient ischemic attack (TIA), and cerebral infarction without residual deficits
CPT/HCPCS: 36415; 36556; 71045; 71275; 73590; 73610; 80048; 80053; 83605; 85007; 85025; 85027; 86141; 87040; 87077; 87186; 93306; 93312; 94761; 96365; 96375

== ENCOUNTER 2020-09-15 12:50 | Outpatient (RCR) | payer OTHER ==
[2020-06-23 14:24] LABS: BASOPHILS # (AUTO) 0.1 10^3/uL (0.0-0.1); BASOPHILS % (AUTO) 1 % (0-10); EOSINOPHILS # (AUTO) 0.1 10^3/uL (0.0-0.3); EOSINOPHILS % (AUTO) 2 % (0-10); HEMATOCRIT 42 % (40-54); HEMOGLOBIN 13.8 g/dL (13.3-17.7); LYMPHOCYTES # (AUTO) 1.1 10^3/uL (1.0-4.0); LYMPHOCYTES % (AUTO) 15 % (12-44); MEAN CORPUSCULAR HEMOGLOBIN 34 pg (25-34); MEAN CORPUSCULAR HGB CONC 33 g/dL (32-36); MEAN CORPUSCULAR VOLUME 104 fL (80-99); MEAN PLATELET VOLUME 9.4 fL (9.0-12.2); MONOCYTES % (AUTO) 15 % (0-12); NEUTROPHILS # (AUTO) 4.6 10^3/uL (1.8-7.8); NEUTROPHILS % (AUTO) 66 % (42-75); PLATELET COUNT 238 10^3/uL (130-400); WHITE BLOOD COUNT 6.9 10^3/uL (4.3-11.0)
[2020-06-23 14:34] LABS: ALBUMIN 3.8 GM/DL (3.2-4.5); BILIRUBIN,TOTAL 0.7 MG/DL (0.1-1.0); CALCIUM 9.3 MG/DL (8.5-10.1); CREATININE SERUM 1.99 MG/DL (0.60-1.30); PHOSPHORUS 2.5 MG/DL (2.3-4.7)
[2020-06-23 14:52] LABS: AMPHETAMINE SCREEN, URINE NEGATIVE (NEGATIVE); BARBITURATE SCREEN URINE NEGATIVE (NEGATIVE); BENZODIAZEPINES SCREEN URINE NEGATIVE (NEGATIVE); CANNABINOID SCREEN, URINE NEGATIVE (NEGATIVE); COCAINE SCREEN URINE NEGATIVE (NEGATIVE); METHADONE STAT NEGATIVE (NEGATIVE); METHAMPHETAMINE SCREEN URINE S NEGATIVE (NEGATIVE); OPIATE SCREEN URINE NEGATIVE (NEGATIVE); OXYCODONE STAT NEGATIVE (NEGATIVE); PROPOXYPHENE STAT NEGATIVE (NEGATIVE); TRICYCLIC ANTIDEPRESSANTS SCRE NEGATIVE (NEGATIVE)
[2020-06-30 14:05] LABS: BASOPHILS # (AUTO) 0.1 10^3/uL (0.0-0.1); BASOPHILS % (AUTO) 1 % (0-10); EOSINOPHILS # (AUTO) 0.2 10^3/uL (0.0-0.3); EOSINOPHILS % (AUTO) 2 % (0-10); HEMATOCRIT 43 % (40-54); HEMOGLOBIN 14.3 g/dL (13.3-17.7); LYMPHOCYTES # (AUTO) 1.3 10^3/uL (1.0-4.0); LYMPHOCYTES % (AUTO) 17 % (12-44); MEAN CORPUSCULAR HEMOGLOBIN 34 pg (25-34); MEAN CORPUSCULAR HGB CONC 33 g/dL (32-36); MEAN CORPUSCULAR VOLUME 102 fL (80-99); MEAN PLATELET VOLUME 8.9 fL (9.0-12.2); MONOCYTES # (AUTO) 1.2 10^3/uL (0.0-1.0); MONOCYTES % (AUTO) 16 % (0-12); NEUTROPHILS # (AUTO) 4.7 10^3/uL (1.8-7.8); NEUTROPHILS % (AUTO) 63 % (42-75); PLATELET COUNT 201 10^3/uL (130-400); WHITE BLOOD COUNT 7.4 10^3/uL (4.3-11.0)
[2020-06-30 14:25] LABS: ALBUMIN 3.9 GM/DL (3.2-4.5); BILIRUBIN,TOTAL 0.7 MG/DL (0.1-1.0); CALCIUM 9.8 MG/DL (8.5-10.1); CREATININE SERUM 1.91 MG/DL (0.60-1.30); MAGNESIUM 2.1 MG/DL (1.6-2.4); PHOSPHORUS 3.4 MG/DL (2.3-4.7); POTASSIUM 4.3 MMOL/L (3.6-5.0); TOTAL PROTEIN 8.5 GM/DL (6.4-8.2)
[2020-06-30 14:27] LABS: AMPHETAMINE SCREEN, URINE NEGATIVE (NEGATIVE); BARBITURATE SCREEN URINE NEGATIVE (NEGATIVE); BENZODIAZEPINES SCREEN URINE NEGATIVE (NEGATIVE); CANNABINOID SCREEN, URINE NEGATIVE (NEGATIVE); COCAINE SCREEN URINE NEGATIVE (NEGATIVE); METHADONE STAT NEGATIVE (NEGATIVE); METHAMPHETAMINE SCREEN URINE S NEGATIVE (NEGATIVE); OPIATE SCREEN URINE NEGATIVE (NEGATIVE); OXYCODONE STAT NEGATIVE (NEGATIVE); PROPOXYPHENE STAT NEGATIVE (NEGATIVE); TRICYCLIC ANTIDEPRESSANTS SCRE POSITIVE (NEGATIVE)
[2020-07-08 17:31] LABS: BASOPHILS # (AUTO) 0.1 10^3/uL (0.0-0.1); BASOPHILS % (AUTO) 1 % (0-10); EOSINOPHILS # (AUTO) 0.3 10^3/uL (0.0-0.3); EOSINOPHILS % (AUTO) 4 % (0-10); HEMATOCRIT 43 % (40-54); HEMOGLOBIN 14.5 g/dL (13.3-17.7); LYMPHOCYTES # (AUTO) 1.3 10^3/uL (1.0-4.0); LYMPHOCYTES % (AUTO) 17 % (12-44); MEAN CORPUSCULAR HEMOGLOBIN 34 pg (25-34); MEAN CORPUSCULAR HGB CONC 33 g/dL (32-36); MEAN CORPUSCULAR VOLUME 102 fL (80-99); MEAN PLATELET VOLUME 9.5 fL (9.0-12.2); MONOCYTES % (AUTO) 13 % (0-12); NEUTROPHILS # (AUTO) 4.9 10^3/uL (1.8-7.8); NEUTROPHILS % (AUTO) 64 % (42-75); PLATELET COUNT 214 10^3/uL (130-400); WHITE BLOOD COUNT 7.7 10^3/uL (4.3-11.0)
[2020-07-08 17:42] LABS: AMPHETAMINE SCREEN, URINE NEGATIVE (NEGATIVE); BARBITURATE SCREEN URINE NEGATIVE (NEGATIVE); BENZODIAZEPINES SCREEN URINE NEGATIVE (NEGATIVE); CANNABINOID SCREEN, URINE NEGATIVE (NEGATIVE); COCAINE SCREEN URINE NEGATIVE (NEGATIVE); METHADONE STAT NEGATIVE (NEGATIVE); METHAMPHETAMINE SCREEN URINE S NEGATIVE (NEGATIVE); OPIATE SCREEN URINE NEGATIVE (NEGATIVE); OXYCODONE STAT NEGATIVE (NEGATIVE); PROPOXYPHENE STAT NEGATIVE (NEGATIVE); TRICYCLIC ANTIDEPRESSANTS SCRE NEGATIVE (NEGATIVE)
[2020-07-08 17:44] LABS: ALBUMIN 3.8 GM/DL (3.2-4.5); POTASSIUM 3.8 MMOL/L (3.6-5.0)
[2020-07-08 17:45] LABS: CALCIUM 9.3 MG/DL (8.5-10.1)
[2020-07-08 17:47] LABS: TOTAL PROTEIN 7.8 GM/DL (6.4-8.2)
[2020-07-08 17:48] LABS: BILIRUBIN,TOTAL 0.4 MG/DL (0.1-1.0)
[2020-07-08 17:50] LABS: CREATININE SERUM 1.86 MG/DL (0.60-1.30); PHOSPHORUS 3.2 MG/DL (2.3-4.7)
[2020-07-08 17:53] LABS: MAGNESIUM 2.1 MG/DL (1.6-2.4)
[2020-07-14 15:20] LABS: BASOPHILS # (AUTO) 0.1 10^3/uL (0.0-0.1); BASOPHILS % (AUTO) 1 % (0-10); EOSINOPHILS # (AUTO) 0.2 10^3/uL (0.0-0.3); EOSINOPHILS % (AUTO) 3 % (0-10); HEMATOCRIT 41 % (40-54); HEMOGLOBIN 13.4 g/dL (13.3-17.7); LYMPHOCYTES % (AUTO) 16 % (12-44); MEAN CORPUSCULAR HEMOGLOBIN 33 pg (25-34); MEAN CORPUSCULAR HGB CONC 32 g/dL (32-36); MEAN CORPUSCULAR VOLUME 102 fL (80-99); MEAN PLATELET VOLUME 9.4 fL (9.0-12.2); MONOCYTES % (AUTO) 16 % (0-12); NEUTROPHILS # (AUTO) 3.9 10^3/uL (1.8-7.8); NEUTROPHILS % (AUTO) 63 % (42-75); PLATELET COUNT 175 10^3/uL (130-400); WHITE BLOOD COUNT 6.3 10^3/uL (4.3-11.0)
[2020-07-14 15:25] LABS: ALBUMIN 3.7 GM/DL (3.2-4.5); POTASSIUM 4.3 MMOL/L (3.6-5.0)
[2020-07-14 15:26] LABS: CALCIUM 9.5 MG/DL (8.5-10.1)
[2020-07-14 15:27] LABS: AMPHETAMINE SCREEN, URINE NEGATIVE (NEGATIVE); BARBITURATE SCREEN URINE NEGATIVE (NEGATIVE); BENZODIAZEPINES SCREEN URINE NEGATIVE (NEGATIVE); CANNABINOID SCREEN, URINE NEGATIVE (NEGATIVE); COCAINE SCREEN URINE NEGATIVE (NEGATIVE); METHADONE STAT NEGATIVE (NEGATIVE); METHAMPHETAMINE SCREEN URINE S NEGATIVE (NEGATIVE); OPIATE SCREEN URINE NEGATIVE (NEGATIVE); OXYCODONE STAT NEGATIVE (NEGATIVE); PROPOXYPHENE STAT NEGATIVE (NEGATIVE); TRICYCLIC ANTIDEPRESSANTS SCRE POSITIVE (NEGATIVE)
[2020-07-14 15:28] LABS: TOTAL PROTEIN 7.8 GM/DL (6.4-8.2)
[2020-07-14 15:30] LABS: BILIRUBIN,TOTAL 0.4 MG/DL (0.1-1.0)
[2020-07-14 15:31] LABS: CREATININE SERUM 1.65 MG/DL (0.60-1.30); PHOSPHORUS 3.1 MG/DL (2.3-4.7)
[2020-07-14 15:34] LABS: MAGNESIUM 2.1 MG/DL (1.6-2.4)
[2020-07-21 15:00] LABS: BASOPHILS % (AUTO) 0 % (0-10); EOSINOPHILS % (AUTO) 0 % (0-10); HEMATOCRIT 43 % (40-54); HEMOGLOBIN 14.4 g/dL (13.3-17.7); LYMPHOCYTES % (AUTO) 14 % (12-44); MEAN CORPUSCULAR HEMOGLOBIN 33 pg (25-34); MEAN CORPUSCULAR HGB CONC 33 g/dL (32-36); MEAN CORPUSCULAR VOLUME 100 fL (80-99); MEAN PLATELET VOLUME 9.3 fL (9.0-12.2); MONOCYTES # (AUTO) 0.9 10^3/uL (0.0-1.0); MONOCYTES % (AUTO) 14 % (0-12); NEUTROPHILS % (AUTO) 72 % (42-75); PLATELET COUNT 175 10^3/uL (130-400)
[2020-07-21 15:09] LABS: ALBUMIN 3.9 GM/DL (3.2-4.5); POTASSIUM 4.6 MMOL/L (3.6-5.0)
[2020-07-21 15:10] LABS: CALCIUM 9.7 MG/DL (8.5-10.1)
[2020-07-21 15:12] LABS: TOTAL PROTEIN 8.3 GM/DL (6.4-8.2)
[2020-07-21 15:13] LABS: AMPHETAMINE SCREEN, URINE NEGATIVE (NEGATIVE); BARBITURATE SCREEN URINE NEGATIVE (NEGATIVE); BENZODIAZEPINES SCREEN URINE NEGATIVE (NEGATIVE); BILIRUBIN,TOTAL 0.5 MG/DL (0.1-1.0); CANNABINOID SCREEN, URINE NEGATIVE (NEGATIVE); COCAINE SCREEN URINE NEGATIVE (NEGATIVE); METHADONE STAT NEGATIVE (NEGATIVE); METHAMPHETAMINE SCREEN URINE S NEGATIVE (NEGATIVE); OPIATE SCREEN URINE NEGATIVE (NEGATIVE); OXYCODONE STAT NEGATIVE (NEGATIVE); PROPOXYPHENE STAT NEGATIVE (NEGATIVE); TRICYCLIC ANTIDEPRESSANTS SCRE NEGATIVE (NEGATIVE)
[2020-07-21 15:15] LABS: CREATININE SERUM 1.98 MG/DL (0.60-1.30); PHOSPHORUS 3.9 MG/DL (2.3-4.7)
[2020-07-21 15:18] LABS: MAGNESIUM 2.1 MG/DL (1.6-2.4)
[2020-08-12 16:14] LABS: BASOPHILS # (AUTO) 0.1 10^3/uL (0.0-0.1); BASOPHILS % (AUTO) 1 % (0-10); HEMOGLOBIN 13.6 g/dL (13.3-17.7); MEAN CORPUSCULAR VOLUME 100 fL (80-99); MEAN PLATELET VOLUME 9.2 fL (9.0-12.2)
[2020-08-12 16:15] LABS: EOSINOPHILS # (AUTO) 0.8 10^3/uL (0.0-0.3); EOSINOPHILS % (AUTO) 7 % (0-10); HEMATOCRIT 44 % (40-54); LYMPHOCYTES # (AUTO) 1.1 10^3/uL (1.0-4.0); LYMPHOCYTES % (AUTO) 10 % (12-44); MEAN CORPUSCULAR HEMOGLOBIN 31 pg (25-34); MEAN CORPUSCULAR HGB CONC 31 g/dL (32-36); MONOCYTES # (AUTO) 0.7 10^3/uL (0.0-1.0); MONOCYTES % (AUTO) 6 % (0-12); NEUTROPHILS # (AUTO) 8.3 10^3/uL (1.8-7.8); NEUTROPHILS % (AUTO) 75 % (42-75); PLATELET COUNT 322 10^3/uL (130-400); WHITE BLOOD COUNT 11.1 10^3/uL (4.3-11.0)
[2020-08-12 16:28] LABS: ALBUMIN 3.5 GM/DL (3.2-4.5)
[2020-08-12 16:29] LABS: CALCIUM 9.2 MG/DL (8.5-10.1)
[2020-08-12 16:30] LABS: TOTAL PROTEIN 8.6 GM/DL (6.4-8.2)
[2020-08-12 16:32] LABS: BILIRUBIN,TOTAL 0.3 MG/DL (0.1-1.0)
[2020-08-12 16:33] LABS: PHOSPHORUS 2.6 MG/DL (2.3-4.7)
[2020-08-12 16:34] LABS: CREATININE SERUM 1.66 MG/DL (0.60-1.30)
[2020-08-12 16:42] LABS: AMPHETAMINE SCREEN, URINE NEGATIVE (NEGATIVE); BARBITURATE SCREEN URINE NEGATIVE (NEGATIVE); BENZODIAZEPINES SCREEN URINE NEGATIVE (NEGATIVE); CANNABINOID SCREEN, URINE NEGATIVE (NEGATIVE); COCAINE SCREEN URINE NEGATIVE (NEGATIVE); METHADONE STAT NEGATIVE (NEGATIVE); METHAMPHETAMINE SCREEN URINE S NEGATIVE (NEGATIVE); OPIATE SCREEN URINE NEGATIVE (NEGATIVE); OXYCODONE STAT NEGATIVE (NEGATIVE); PROPOXYPHENE STAT NEGATIVE (NEGATIVE); TRICYCLIC ANTIDEPRESSANTS SCRE NEGATIVE (NEGATIVE)
[2020-08-21 12:00] LABS: BASOPHILS # (AUTO) 0.1 10^3/uL (0.0-0.1); BASOPHILS % (AUTO) 1 % (0-10); EOSINOPHILS # (AUTO) 0.6 10^3/uL (0.0-0.3); EOSINOPHILS % (AUTO) 8 % (0-10); HEMATOCRIT 41 % (40-54); HEMOGLOBIN 12.7 g/dL (13.3-17.7); LYMPHOCYTES # (AUTO) 0.7 10^3/uL (1.0-4.0); LYMPHOCYTES % (AUTO) 10 % (12-44); MEAN CORPUSCULAR HEMOGLOBIN 31 pg (25-34); MEAN CORPUSCULAR HGB CONC 31 g/dL (32-36); MEAN CORPUSCULAR VOLUME 99 fL (80-99); MEAN PLATELET VOLUME 9.1 fL (9.0-12.2); MONOCYTES % (AUTO) 12 % (0-12); NEUTROPHILS # (AUTO) 5.4 10^3/uL (1.8-7.8); NEUTROPHILS % (AUTO) 69 % (42-75); PLATELET COUNT 177 10^3/uL (130-400); WHITE BLOOD COUNT 7.7 10^3/uL (4.3-11.0)
[2020-08-21 12:10] LABS: AMPHETAMINE SCREEN, URINE NEGATIVE (NEGATIVE); BARBITURATE SCREEN URINE NEGATIVE (NEGATIVE); BENZODIAZEPINES SCREEN URINE NEGATIVE (NEGATIVE); CANNABINOID SCREEN, URINE NEGATIVE (NEGATIVE); COCAINE SCREEN URINE NEGATIVE (NEGATIVE); METHAMPHETAMINE SCREEN URINE S NEGATIVE (NEGATIVE); OPIATE SCREEN URINE NEGATIVE (NEGATIVE)
[2020-08-21 12:11] LABS: METHADONE STAT NEGATIVE (NEGATIVE); OXYCODONE STAT NEGATIVE (NEGATIVE); PROPOXYPHENE STAT NEGATIVE (NEGATIVE); TRICYCLIC ANTIDEPRESSANTS SCRE POSITIVE (NEGATIVE)
[2020-08-21 12:13] LABS: MAGNESIUM 1.7 MG/DL (1.6-2.4); PHOSPHORUS 3.2 MG/DL (2.3-4.7)
[2020-08-25 13:56] LABS: BASOPHILS # (AUTO) 0.1 10^3/uL (0.0-0.1); BASOPHILS % (AUTO) 1 % (0-10); EOSINOPHILS # (AUTO) 0.5 10^3/uL (0.0-0.3); EOSINOPHILS % (AUTO) 6 % (0-10); HEMATOCRIT 42 % (40-54); HEMOGLOBIN 13.5 g/dL (13.3-17.7); LYMPHOCYTES % (AUTO) 14 % (12-44); MEAN CORPUSCULAR HEMOGLOBIN 30 pg (25-34); MEAN CORPUSCULAR HGB CONC 32 g/dL (32-36); MEAN CORPUSCULAR VOLUME 95 fL (80-99); MEAN PLATELET VOLUME 9.6 fL (9.0-12.2); MONOCYTES # (AUTO) 0.9 10^3/uL (0.0-1.0); MONOCYTES % (AUTO) 12 % (0-12); NEUTROPHILS # (AUTO) 4.9 10^3/uL (1.8-7.8); NEUTROPHILS % (AUTO) 66 % (42-75); PLATELET COUNT 212 10^3/uL (130-400); WHITE BLOOD COUNT 7.5 10^3/uL (4.3-11.0)
[2020-08-25 14:08] LABS: AMPHETAMINE SCREEN, URINE NEGATIVE (NEGATIVE); BARBITURATE SCREEN URINE NEGATIVE (NEGATIVE); BENZODIAZEPINES SCREEN URINE NEGATIVE (NEGATIVE); CANNABINOID SCREEN, URINE NEGATIVE (NEGATIVE); COCAINE SCREEN URINE NEGATIVE (NEGATIVE); METHADONE STAT NEGATIVE (NEGATIVE); METHAMPHETAMINE SCREEN URINE S NEGATIVE (NEGATIVE); OPIATE SCREEN URINE NEGATIVE (NEGATIVE); OXYCODONE STAT NEGATIVE (NEGATIVE); PROPOXYPHENE STAT NEGATIVE (NEGATIVE); TRICYCLIC ANTIDEPRESSANTS SCRE POSITIVE (NEGATIVE)
[2020-08-25 14:20] LABS: ALBUMIN 3.4 GM/DL (3.2-4.5); BILIRUBIN,TOTAL 0.3 MG/DL (0.1-1.0); CREATININE SERUM 1.56 MG/DL (0.60-1.30); MAGNESIUM 1.9 MG/DL (1.6-2.4); PHOSPHORUS 2.8 MG/DL (2.3-4.7); TOTAL PROTEIN 8.3 GM/DL (6.4-8.2)
[2020-09-01 14:11] LABS: BASOPHILS # (AUTO) 0.1 10^3/uL (0.0-0.1); BASOPHILS % (AUTO) 1 % (0-10); EOSINOPHILS # (AUTO) 0.4 10^3/uL (0.0-0.3); EOSINOPHILS % (AUTO) 6 % (0-10); HEMATOCRIT 48 % (40-54); HEMOGLOBIN 15.2 g/dL (13.3-17.7); LYMPHOCYTES # (AUTO) 1.1 10^3/uL (1.0-4.0); LYMPHOCYTES % (AUTO) 14 % (12-44); MEAN CORPUSCULAR HEMOGLOBIN 30 pg (25-34); MEAN CORPUSCULAR HGB CONC 32 g/dL (32-36); MEAN CORPUSCULAR VOLUME 95 fL (80-99); MEAN PLATELET VOLUME 8.9 fL (9.0-12.2); MONOCYTES # (AUTO) 0.9 10^3/uL (0.0-1.0); MONOCYTES % (AUTO) 13 % (0-12); NEUTROPHILS # (AUTO) 4.8 10^3/uL (1.8-7.8); NEUTROPHILS % (AUTO) 65 % (42-75); PLATELET COUNT 237 10^3/uL (130-400); WHITE BLOOD COUNT 7.4 10^3/uL (4.3-11.0)
[2020-09-01 14:15] LABS: ALBUMIN 3.8 GM/DL (3.2-4.5); POTASSIUM 4.1 MMOL/L (3.6-5.0)
[2020-09-01 14:16] LABS: CALCIUM 9.4 MG/DL (8.5-10.1)
[2020-09-01 14:17] LABS: TOTAL PROTEIN 9.4 GM/DL (6.4-8.2)
[2020-09-01 14:19] LABS: BILIRUBIN,TOTAL 0.3 MG/DL (0.1-1.0)
[2020-09-01 14:21] LABS: CREATININE SERUM 1.6 MG/DL (0.60-1.30); PHOSPHORUS 3.6 MG/DL (2.3-4.7)
[2020-09-01 14:24] LABS: MAGNESIUM 2.1 MG/DL (1.6-2.4)
[2020-09-01 14:30] LABS: AMPHETAMINE SCREEN, URINE NEGATIVE (NEGATIVE); BARBITURATE SCREEN URINE NEGATIVE (NEGATIVE); BENZODIAZEPINES SCREEN URINE NEGATIVE (NEGATIVE); CANNABINOID SCREEN, URINE NEGATIVE (NEGATIVE); COCAINE SCREEN URINE NEGATIVE (NEGATIVE); METHADONE STAT NEGATIVE (NEGATIVE); METHAMPHETAMINE SCREEN URINE S NEGATIVE (NEGATIVE); OPIATE SCREEN URINE NEGATIVE (NEGATIVE); OXYCODONE STAT NEGATIVE (NEGATIVE); PROPOXYPHENE STAT NEGATIVE (NEGATIVE); TRICYCLIC ANTIDEPRESSANTS SCRE POSITIVE (NEGATIVE)
[2020-09-08 13:47] LABS: BASOPHILS # (AUTO) 0.1 10^3/uL (0.0-0.1); BASOPHILS % (AUTO) 1 % (0-10); EOSINOPHILS # (AUTO) 0.2 10^3/uL (0.0-0.3); EOSINOPHILS % (AUTO) 2 % (0-10); HEMATOCRIT 46 % (40-54); HEMOGLOBIN 14.7 g/dL (13.3-17.7); LYMPHOCYTES # (AUTO) 0.9 10^3/uL (1.0-4.0); LYMPHOCYTES % (AUTO) 11 % (12-44); MEAN CORPUSCULAR HEMOGLOBIN 30 pg (25-34); MEAN CORPUSCULAR HGB CONC 32 g/dL (32-36); MEAN CORPUSCULAR VOLUME 95 fL (80-99); MEAN PLATELET VOLUME 9.6 fL (9.0-12.2); MONOCYTES # (AUTO) 0.9 10^3/uL (0.0-1.0); MONOCYTES % (AUTO) 11 % (0-12); NEUTROPHILS # (AUTO) 5.7 10^3/uL (1.8-7.8); NEUTROPHILS % (AUTO) 73 % (42-75); PLATELET COUNT 228 10^3/uL (130-400); WHITE BLOOD COUNT 7.8 10^3/uL (4.3-11.0)
[2020-09-08 14:04] LABS: ALBUMIN 3.6 GM/DL (3.2-4.5); BILIRUBIN,TOTAL 0.4 MG/DL (0.1-1.0); CALCIUM 9.3 MG/DL (8.5-10.1); CREATININE SERUM 1.87 MG/DL (0.60-1.30); MAGNESIUM 1.8 MG/DL (1.6-2.4); PHOSPHORUS 2.7 MG/DL (2.3-4.7); POTASSIUM 4.4 MMOL/L (3.6-5.0)
[2020-09-08 14:07] LABS: AMPHETAMINE SCREEN, URINE NEGATIVE (NEGATIVE); BARBITURATE SCREEN URINE NEGATIVE (NEGATIVE); BENZODIAZEPINES SCREEN URINE NEGATIVE (NEGATIVE); CANNABINOID SCREEN, URINE NEGATIVE (NEGATIVE); COCAINE SCREEN URINE NEGATIVE (NEGATIVE); METHADONE STAT NEGATIVE (NEGATIVE); METHAMPHETAMINE SCREEN URINE S NEGATIVE (NEGATIVE); OPIATE SCREEN URINE NEGATIVE (NEGATIVE); OXYCODONE STAT NEGATIVE (NEGATIVE); PROPOXYPHENE STAT NEGATIVE (NEGATIVE); TRICYCLIC ANTIDEPRESSANTS SCRE NEGATIVE (NEGATIVE)
[~2020-09-15 12:50] MED LIST changes: +AMIO400T5 PO; +ASCO500T7 PO; +ASPI-1238 PO; +ATOR40TA70 PO; +CEFA2PIG IV; +DICL100G18 TP; +EMPA10TA PO; +FURO20TA4 PO; +GARL10002 PO; +HYDR-3922 PO; +ISOS10TA66 PO; +MILR20PI IV; +MULT-1136 PO; +OMEG1CAP58 PO; +PRD20T PO; +SERT-413 PO; +SPIR25TA5 PO; +VITA1CAP PO
[2020-09-15 12:59] LABS: BASOPHILS # (AUTO) 0.1 10^3/uL (0.0-0.1); BASOPHILS % (AUTO) 1 % (0-10); EOSINOPHILS % (AUTO) 0 % (0-10); HEMATOCRIT 45 % (40-54); LYMPHOCYTES # (AUTO) 0.9 10^3/uL (1.0-4.0); LYMPHOCYTES % (AUTO) 11 % (12-44); MEAN CORPUSCULAR HEMOGLOBIN 30 pg (25-34); MEAN CORPUSCULAR HGB CONC 31 g/dL (32-36); MEAN CORPUSCULAR VOLUME 96 fL (80-99); MEAN PLATELET VOLUME 9.2 fL (9.0-12.2); MONOCYTES % (AUTO) 13 % (0-12); NEUTROPHILS # (AUTO) 5.9 10^3/uL (1.8-7.8); NEUTROPHILS % (AUTO) 75 % (42-75); PLATELET COUNT 207 10^3/uL (130-400); WHITE BLOOD COUNT 7.9 10^3/uL (4.3-11.0)
[2020-09-15 13:12] LABS: ALBUMIN 3.4 GM/DL (3.2-4.5); POTASSIUM 4.1 MMOL/L (3.6-5.0)
[2020-09-15 13:13] LABS: CALCIUM 8.8 MG/DL (8.5-10.1)
[2020-09-15 13:15] LABS: TOTAL PROTEIN 8.2 GM/DL (6.4-8.2)
[2020-09-15 13:16] LABS: BILIRUBIN,TOTAL 0.4 MG/DL (0.1-1.0)
[2020-09-15 13:18] LABS: CREATININE SERUM 1.63 MG/DL (0.60-1.30); PHOSPHORUS 3.3 MG/DL (2.3-4.7)
[2020-09-15 13:21] LABS: MAGNESIUM 1.9 MG/DL (1.6-2.4)
[2020-09-15 22:41] LABS: AMPHETAMINES URINE QUAL DS Negative (Negative); BARBITURATES URINE QUAL DS Negative (Negative); BENZODIAZEPINE URINE QUAL DS Negative (Negative)
== END 2020-09-21 | disposition home or self-care (01) ==
LOC: LAB 12:50
PROVIDERS: ATTEND Internal Medicine Advanced Heart Failure and Transplant Cardiology
DX: Z01.89 Encounter for other specified special examinations (principal)
CPT/HCPCS: 36415; 80053; 80306; 80307; 83735; 84100; 85025

== ENCOUNTER 2020-09-22 08:00 | Outpatient (RCR) | payer OTHER ==
[2020-09-22 12:50] LABS: BASOPHILS # (AUTO) 0.1 10^3/uL (0.0-0.1); BASOPHILS % (AUTO) 1 % (0-10); EOSINOPHILS # (AUTO) 0.2 10^3/uL (0.0-0.3); EOSINOPHILS % (AUTO) 2 % (0-10); HEMATOCRIT 47 % (40-54); HEMOGLOBIN 14.8 g/dL (13.3-17.7); LYMPHOCYTES # (AUTO) 0.9 10^3/uL (1.0-4.0); LYMPHOCYTES % (AUTO) 11 % (12-44); MEAN CORPUSCULAR HEMOGLOBIN 30 pg (25-34); MEAN CORPUSCULAR HGB CONC 32 g/dL (32-36); MEAN CORPUSCULAR VOLUME 95 fL (80-99); MEAN PLATELET VOLUME 9.3 fL (9.0-12.2); MONOCYTES % (AUTO) 13 % (0-12); NEUTROPHILS # (AUTO) 5.7 10^3/uL (1.8-7.8); NEUTROPHILS % (AUTO) 73 % (42-75); PLATELET COUNT 188 10^3/uL (130-400); WHITE BLOOD COUNT 7.8 10^3/uL (4.3-11.0)
[2020-09-22 12:59] LABS: ALBUMIN 3.4 GM/DL (3.2-4.5); POTASSIUM 3.6 MMOL/L (3.6-5.0)
[2020-09-22 13:00] LABS: CALCIUM 8.6 MG/DL (8.5-10.1)
[2020-09-22 13:02] LABS: TOTAL PROTEIN 8.2 GM/DL (6.4-8.2)
[2020-09-22 13:03] LABS: BILIRUBIN,TOTAL 0.5 MG/DL (0.1-1.0)
[2020-09-22 13:04] LABS: AMPHETAMINE SCREEN, URINE NEGATIVE (NEGATIVE); BARBITURATE SCREEN URINE NEGATIVE (NEGATIVE); BENZODIAZEPINES SCREEN URINE NEGATIVE (NEGATIVE); CANNABINOID SCREEN, URINE NEGATIVE (NEGATIVE); COCAINE SCREEN URINE NEGATIVE (NEGATIVE); METHADONE STAT NEGATIVE (NEGATIVE); METHAMPHETAMINE SCREEN URINE S NEGATIVE (NEGATIVE); OPIATE SCREEN URINE NEGATIVE (NEGATIVE); OXYCODONE STAT NEGATIVE (NEGATIVE); PROPOXYPHENE STAT NEGATIVE (NEGATIVE); TRICYCLIC ANTIDEPRESSANTS SCRE NEGATIVE (NEGATIVE)
[2020-09-22 13:05] LABS: CREATININE SERUM 1.7 MG/DL (0.60-1.30); PHOSPHORUS 2.7 MG/DL (2.3-4.7)
[2020-09-22 13:09] LABS: MAGNESIUM 1.7 MG/DL (1.6-2.4)
[2020-09-29 14:19] LABS: BASOPHILS # (AUTO) 0.1 10^3/uL (0.0-0.1); BASOPHILS % (AUTO) 1 % (0-10); EOSINOPHILS # (AUTO) 0.1 10^3/uL (0.0-0.3); EOSINOPHILS % (AUTO) 2 % (0-10); HEMATOCRIT 47 % (40-54); HEMOGLOBIN 15.1 g/dL (13.3-17.7); LYMPHOCYTES # (AUTO) 1.1 10^3/uL (1.0-4.0); LYMPHOCYTES % (AUTO) 13 % (12-44); MEAN CORPUSCULAR HEMOGLOBIN 30 pg (25-34); MEAN CORPUSCULAR HGB CONC 32 g/dL (32-36); MEAN CORPUSCULAR VOLUME 94 fL (80-99); MEAN PLATELET VOLUME 9.5 fL (9.0-12.2); MONOCYTES # (AUTO) 1.1 10^3/uL (0.0-1.0); MONOCYTES % (AUTO) 13 % (0-12); NEUTROPHILS # (AUTO) 6.1 10^3/uL (1.8-7.8); NEUTROPHILS % (AUTO) 71 % (42-75); PLATELET COUNT 206 10^3/uL (130-400); WHITE BLOOD COUNT 8.6 10^3/uL (4.3-11.0)
[2020-09-29 14:30] LABS: AMPHETAMINE SCREEN, URINE NEGATIVE (NEGATIVE); BARBITURATE SCREEN URINE NEGATIVE (NEGATIVE); BENZODIAZEPINES SCREEN URINE NEGATIVE (NEGATIVE); CANNABINOID SCREEN, URINE NEGATIVE (NEGATIVE); COCAINE SCREEN URINE NEGATIVE (NEGATIVE); METHADONE STAT NEGATIVE (NEGATIVE); METHAMPHETAMINE SCREEN URINE S NEGATIVE (NEGATIVE); OPIATE SCREEN URINE NEGATIVE (NEGATIVE); OXYCODONE STAT NEGATIVE (NEGATIVE); PROPOXYPHENE STAT NEGATIVE (NEGATIVE); TRICYCLIC ANTIDEPRESSANTS SCRE POSITIVE (NEGATIVE)
[2020-09-29 14:32] LABS: ALBUMIN 3.9 GM/DL (3.2-4.5); BILIRUBIN,TOTAL 0.4 MG/DL (0.1-1.0); CALCIUM 9.9 MG/DL (8.5-10.1); CREATININE SERUM 1.97 MG/DL (0.60-1.30); MAGNESIUM 2.2 MG/DL (1.6-2.4); PHOSPHORUS 3.4 MG/DL (2.3-4.7); POTASSIUM 4.6 MMOL/L (3.6-5.0); TOTAL PROTEIN 9.2 GM/DL (6.4-8.2)
== END 2020-12-21 | disposition home or self-care (01) ==
LOC: LAB 08:00
PROVIDERS: ATTEND Internal Medicine Advanced Heart Failure and Transplant Cardiology
DX: Z01.89 Encounter for other specified special examinations (principal)
CPT/HCPCS: 36415; 80053; 80306; 83735; 84100; 85025

== ENCOUNTER → 2020-10-06 | Outpatient (CLI) | payer OTHER ==
[2020-10-06 13:16] LABS: BASOPHILS # (AUTO) 0.1 10^3/uL (0.0-0.1); BASOPHILS % (AUTO) 1 % (0-10); EOSINOPHILS # (AUTO) 0.1 10^3/uL (0.0-0.3); EOSINOPHILS % (AUTO) 1 % (0-10); HEMATOCRIT 48 % (40-54); HEMOGLOBIN 15.2 g/dL (13.3-17.7); LYMPHOCYTES # (AUTO) 1.2 10^3/uL (1.0-4.0); LYMPHOCYTES % (AUTO) 14 % (12-44); MEAN CORPUSCULAR HEMOGLOBIN 30 pg (25-34); MEAN CORPUSCULAR HGB CONC 32 g/dL (32-36); MEAN CORPUSCULAR VOLUME 96 fL (80-99); MONOCYTES # (AUTO) 1.1 10^3/uL (0.0-1.0); MONOCYTES % (AUTO) 13 % (0-12); NEUTROPHILS # (AUTO) 6.1 10^3/uL (1.8-7.8); NEUTROPHILS % (AUTO) 70 % (42-75); PLATELET COUNT 228 10^3/uL (130-400); WHITE BLOOD COUNT 8.7 10^3/uL (4.3-11.0)
[2020-10-06 13:28] LABS: AMPHETAMINE SCREEN, URINE NEGATIVE (NEGATIVE); BARBITURATE SCREEN URINE NEGATIVE (NEGATIVE); BENZODIAZEPINES SCREEN URINE NEGATIVE (NEGATIVE); CANNABINOID SCREEN, URINE NEGATIVE (NEGATIVE); COCAINE SCREEN URINE NEGATIVE (NEGATIVE); METHAMPHETAMINE SCREEN URINE S NEGATIVE (NEGATIVE); OPIATE SCREEN URINE NEGATIVE (NEGATIVE)
[2020-10-06 13:29] LABS: METHADONE STAT NEGATIVE (NEGATIVE); OXYCODONE STAT NEGATIVE (NEGATIVE); PROPOXYPHENE STAT NEGATIVE (NEGATIVE); TRICYCLIC ANTIDEPRESSANTS SCRE POSITIVE (NEGATIVE)
[2020-10-06 13:37] LABS: ALBUMIN 3.4 GM/DL (3.2-4.5); BILIRUBIN,TOTAL 0.6 MG/DL (0.1-1.0); CALCIUM 8.2 MG/DL (8.5-10.1); CREATININE SERUM 1.94 MG/DL (0.60-1.30); MAGNESIUM 1.8 MG/DL (1.6-2.4); POTASSIUM 4.3 MMOL/L (3.6-5.0); TOTAL PROTEIN 7.8 GM/DL (6.4-8.2)
== END ==
LOC: LABNPT 13:09
PROVIDERS: ATTEND Internal Medicine Advanced Heart Failure and Transplant Cardiology
DX: Z01.89 Encounter for other specified special examinations (principal)
CPT/HCPCS: 80053; 80306; 83735; 84100; 85025

== ENCOUNTER → 2020-10-14 | Outpatient (CLI) | payer OTHER ==
[2020-10-14 14:46] LABS: BASOPHILS # (AUTO) 0.1 10^3/uL (0.0-0.1); BASOPHILS % (AUTO) 1 % (0-10); EOSINOPHILS # (AUTO) 0.2 10^3/uL (0.0-0.3); EOSINOPHILS % (AUTO) 3 % (0-10); HEMATOCRIT 44 % (40-54); HEMOGLOBIN 14.1 g/dL (13.3-17.7); LYMPHOCYTES # (AUTO) 1.1 10^3/uL (1.0-4.0); LYMPHOCYTES % (AUTO) 14 % (12-44); MEAN CORPUSCULAR HEMOGLOBIN 30 pg (25-34); MEAN CORPUSCULAR HGB CONC 32 g/dL (32-36); MEAN CORPUSCULAR VOLUME 95 fL (80-99); MEAN PLATELET VOLUME 9.8 fL (9.0-12.2); MONOCYTES # (AUTO) 0.9 10^3/uL (0.0-1.0); MONOCYTES % (AUTO) 12 % (0-12); NEUTROPHILS # (AUTO) 5.4 10^3/uL (1.8-7.8); NEUTROPHILS % (AUTO) 69 % (42-75); PLATELET COUNT 176 10^3/uL (130-400); WHITE BLOOD COUNT 7.7 10^3/uL (4.3-11.0)
[2020-10-14 15:00] LABS: ALBUMIN 3.5 GM/DL (3.2-4.5); BILIRUBIN,TOTAL 0.4 MG/DL (0.1-1.0); CALCIUM 8.7 MG/DL (8.5-10.1); CREATININE SERUM 1.85 MG/DL (0.60-1.30); MAGNESIUM 1.8 MG/DL (1.6-2.4); PHOSPHORUS 3.1 MG/DL (2.3-4.7); POTASSIUM 3.6 MMOL/L (3.6-5.0); TOTAL PROTEIN 8.1 GM/DL (6.4-8.2)
[2020-10-14 15:06] LABS: AMPHETAMINE SCREEN, URINE NEGATIVE (NEGATIVE); BARBITURATE SCREEN URINE NEGATIVE (NEGATIVE); BENZODIAZEPINES SCREEN URINE NEGATIVE (NEGATIVE); CANNABINOID SCREEN, URINE NEGATIVE (NEGATIVE); COCAINE SCREEN URINE NEGATIVE (NEGATIVE); METHADONE STAT NEGATIVE (NEGATIVE); METHAMPHETAMINE SCREEN URINE S NEGATIVE (NEGATIVE); OPIATE SCREEN URINE NEGATIVE (NEGATIVE); OXYCODONE STAT NEGATIVE (NEGATIVE); PROPOXYPHENE STAT NEGATIVE (NEGATIVE); TRICYCLIC ANTIDEPRESSANTS SCRE POSITIVE (NEGATIVE)
== END ==
LOC: LABNPT 14:29
DX: Z01.89 Encounter for other specified special examinations (principal)
CPT/HCPCS: 80053; 80306; 83735; 84100; 85025